=== PATIENT | female | born 1940 | race Caucasian/White ===

== ENCOUNTER → 2017-09-16 | Outpatient (CLI) | payer MEDICARE, OTHER ==
[~2017-09-16] MED LIST: ANAS1 PO; ASPI81CH PO; ATEN25 PO; ATOR10 PO; ATOR20 PO; CHOL10002 PO; CRANBERRY250 MG PO; CRANBERRY450 MG PO; CYCL10 PO; ELIQUIS2.5 MG PO; ERGO400 PO; ESTR1 PO; GABA300 PO; GUAI600T33 PO; HYDACE5 PO; LEVFLO500 PO; LEVSOD75 PO; LEVSOD88 PO; LISI5 PO; NITR100; NITR100 PO; NITR100CA PO; ONDA8 PO; OXYACE5T PO; OXYB5 PO; OXYC5 PO; Oxybutynin Chlo15 MG PO; PHENA200 PO; POTA10T PO; POTCHL10ER PO; POTCHL20ER PO; PRED1 PO; PRED10 PO; PRED5 PO; PROM25 PO; RXOXYACE PO; SPIR50 PO; TOLT4 PO; TRAM50 PO
== END | disposition home or self-care (01) ==
LOC: LAB 16:00
DX: N39.0 Urinary tract infection, site not specified (principal)
CPT/HCPCS: 87077; 87086; 87186

== ENCOUNTER → 2017-10-06 | Outpatient (CLI) | payer MEDICARE, OTHER ==
[2017-10-06 11:05] LABS: Source, Urine Clean Catch
[2017-10-06 13:50] LABS: Appearance, Urine Hazy (Clear); Bilirubin, Urine Neg (Neg); Blood, Urine 3+ (Neg); Color, Urine Yellow (P-Yellow); Glucose Qualitative, Urine Neg (Neg); Ketones, Urine Neg (Neg); Leukocyte Esterase, Urine 3+ (Neg); Nitrite, Urine Neg (Neg); Protein, Urine 1+ (Neg); Urobilinogen, Urine NORM (Normal)
[2017-10-06 13:56] LABS: Bacteria Many /hpf; Red Blood Cells, Urine 0-2 /hpf (0-2); Squamous Epithelial Cells Few /hpf (Few); White Blood Cells, Urine TNTC /hpf (0-5)
== END | disposition home or self-care (01) ==
LOC: LAB 11:04
PROVIDERS: Nurse Practitioner Family
DX: N39.0 Urinary tract infection, site not specified (principal)
CPT/HCPCS: 81001; 87077; 87086; 87186

== ENCOUNTER → 2017-10-15 | Outpatient (CLI) | payer MEDICARE, OTHER ==
[2017-10-15 18:35] LABS: Bilirubin, Urine Neg (Neg); Blood, Urine 2+ (Neg); Glucose Qualitative, Urine Neg (Neg); Ketones, Urine Neg (Neg); Leukocyte Esterase, Urine Neg (Neg); Nitrite, Urine Neg (Neg); Protein, Urine Neg (Neg); Urobilinogen, Urine NORM (Normal)
[2017-10-15 18:53] LABS: Appearance, Urine Clear (Clear); Color, Urine Pale Yellow (P-Yellow)
[2017-10-15 18:54] LABS: Bacteria Few /hpf; Red Blood Cells, Urine 0-2 /hpf (0-2); Squamous Epithelial Cells Few /hpf (Few); White Blood Cells, Urine 0-2 /hpf (0-5)
== END ==
LOC: LAB SHORT 18:26
PROVIDERS: Nurse Practitioner Family
DX: R31.21 Asymptomatic microscopic hematuria (principal)
CPT/HCPCS: 81001

== ENCOUNTER 2017-11-04 07:41 | Inpatient (IN) | payer MEDICARE, OTHER ==
[~2017-11-04] VITALS: Ht 167.6 cm; Wt 69.9 kg
[~2017-11-04 07:41] MED LIST changes: -ELIQUIS2.5 MG PO; -GUAI600T33 PO; -LEVFLO500 PO; -NITR100
[2017-11-04] MEDS ORDERED: ELIQUIS2.5 MG PO (08:06)
[2017-11-04] MEDS ORDERED: NITR100 (08:07)
[2017-11-04 08:33] LABS: BASOPHILS ABSOLUTE AUTO 0.04 K/mm3 (0.00-0.23); BASOPHILS PERCENT AUTO 1 % (0-2); EOSINOPHILS ABSOLUTE AUTO 0.14 K/mm3 (0.00-0.68); EOSINOPHILS PERCENT AUTO 2 % (0-6); Hematocrit 39.4 % (33.0-51.0); Hemoglobin 12.5 g/dL (11.5-16.0); IMMATURE GRAN ABSOLUTE AUTO 0.01 K/mm3 (0.00-0.10); IMMATURE GRAN PERCENT AUTO 0 % (0-1); LYMPHOCYTES ABSOLUTE AUTO 1.47 K/mm3 (0.84-5.20); LYMPHOCYTES PERCENT AUTO 19 % (21-46); MONOCYTES ABSOLUTE AUTO 0.74 K/mm3 (0.16-1.47); MONOCYTES PERCENT AUTO 9 % (4-13); Mean Corpuscular HGB 29.8 pg (26.0-34.0); Mean Corpuscular HGB Conc 31.7 g/dL (31.5-36.5); Mean Corpuscular Volume 94 fL (80-100); Mean Platelet Volume 10.6 fL (9.1-12.4); NEUTROPHILS ABSOLUTE AUTO 5.44 K/mm3 (1.96-9.15); NEUTROPHILS PERCENT AUTO 69 % (41-73); Platelet Count 170 K/mm3 (150-400); RDW Coefficient Variation 14.7 % (11.7-14.2); RDW Standard Deviation 51.5 fL (35.1-46.3); White Blood Cell Count 7.84 K/mm3 (4.00-11.30)
[2017-11-04 08:50] LABS: Alanine Aminotransfer (ALT/SGP 29 U/L (12-78); Albumin, Blood 2.7 g/dL (3.4-5.0); Albumin/Globulin Ratio 0.7 (0.8-1.8); Alk Phos 79 U/L (50-136); Anion Gap 11 mmol/L (6-16); Aspartate Aminotrans (AST/SGOT 16 U/L (12-37); Bilirubin, Total 1.7 mg/dL (0.1-1.0); Blood Urea Nitrogen 15 mg/dL (8-24); Bun/Creatinine Ratio 18.2 (12.0-20.0); CO2, Blood 25 mmol/L (21-32); Calcium, Blood 8.5 mg/dL (8.5-10.1); Chloride, Blood 103 mmol/L (98-108); Creatinine, Blood 0.82 mg/dL (0.40-1.00); Glomerular Filtration Rate >60 (60-); Glucose, Blood 99 mg/dL (70-99); Potassium, Blood 3.7 mmol/L (3.5-5.5); Sodium, Blood 139 mmol/L (136-145); Total Protein, Blood 6.7 g/dL (6.4-8.2)
[2017-11-04 09:41] LABS: Influenza A Negative (NEGATIVE); Influenza B Negative (NEGATIVE)
[2017-11-04 10:45] LABS: Source, Urine Voided
[2017-11-04 10:49] LABS: Bilirubin, Urine Neg (Neg); Blood, Urine 4+ (Neg); Glucose Qualitative, Urine Neg (Neg); Ketones, Urine 3+ (Neg); Leukocyte Esterase, Urine Neg (Neg); Nitrite, Urine Neg (Neg); Protein, Urine 2+ (Neg); Urobilinogen, Urine 1+ (Normal)
[2017-11-04 11:05] LABS: Appearance, Urine Clear (Clear); Color, Urine Yellow (P-Yellow)
[2017-11-04 11:06] LABS: White Blood Cells, Urine Not Seen /hpf (0-5)
[2017-11-04 11:08] LABS: Bacteria Few /hpf; Granular Casts 0-2 /lpf (0); Renal Epithelial Few /hpf (0-Rare); Squamous Epithelial Cells Few /hpf (Few); Transitional Epithelial Cells Few /hpf (0-Rare)
[2017-11-05 05:42] LABS: BASOPHILS ABSOLUTE AUTO 0.04 K/mm3 (0.00-0.23); BASOPHILS PERCENT AUTO 1 % (0-2); EOSINOPHILS ABSOLUTE AUTO 0.16 K/mm3 (0.00-0.68); EOSINOPHILS PERCENT AUTO 3 % (0-6); Hemoglobin 12.4 g/dL (11.5-16.0); IMMATURE GRAN ABSOLUTE AUTO 0.02 K/mm3 (0.00-0.10); IMMATURE GRAN PERCENT AUTO 0 % (0-1); LYMPHOCYTES ABSOLUTE AUTO 1.14 K/mm3 (0.84-5.20); LYMPHOCYTES PERCENT AUTO 19 % (21-46); MONOCYTES ABSOLUTE AUTO 0.64 K/mm3 (0.16-1.47); MONOCYTES PERCENT AUTO 10 % (4-13); Mean Corpuscular HGB 29.8 pg (26.0-34.0); Mean Corpuscular HGB Conc 31.8 g/dL (31.5-36.5); Mean Corpuscular Volume 94 fL (80-100); Mean Platelet Volume 10.4 fL (9.1-12.4); NEUTROPHILS ABSOLUTE AUTO 4.15 K/mm3 (1.96-9.15); NEUTROPHILS PERCENT AUTO 68 % (41-73); Platelet Count 160 K/mm3 (150-400); RDW Coefficient Variation 14.7 % (11.7-14.2); RDW Standard Deviation 50.6 fL (35.1-46.3); Red Blood Cell Count 4.16 M/mm3 (3.80-5.20); White Blood Cell Count 6.15 K/mm3 (4.00-11.30)
[2017-11-05 06:10] LABS: Alanine Aminotransfer (ALT/SGP 23 U/L (12-78); Albumin, Blood 2.5 g/dL (3.4-5.0); Albumin/Globulin Ratio 0.7 (0.8-1.8); Alk Phos 68 U/L (50-136); Anion Gap 10 mmol/L (6-16); Aspartate Aminotrans (AST/SGOT 11 U/L (12-37); Bilirubin, Total 0.9 mg/dL (0.1-1.0); Blood Urea Nitrogen 13 mg/dL (8-24); Bun/Creatinine Ratio 16.4 (12.0-20.0); CO2, Blood 22 mmol/L (21-32); Calcium, Blood 7.9 mg/dL (8.5-10.1); Chloride, Blood 107 mmol/L (98-108); Creatinine, Blood 0.79 mg/dL (0.40-1.00); Globulin, Blood 3.6 g/dL (2.2-4.0); Glomerular Filtration Rate >60 (60-); Glucose, Blood 128 mg/dL (70-99); Potassium, Blood 3.8 mmol/L (3.5-5.5); Sodium, Blood 139 mmol/L (136-145); Total Protein, Blood 6.1 g/dL (6.4-8.2)
[2017-11-06 05:31] LABS: BASOPHILS ABSOLUTE AUTO 0.02 K/mm3 (0.00-0.23); BASOPHILS PERCENT AUTO 0 % (0-2); EOSINOPHILS ABSOLUTE AUTO 0.08 K/mm3 (0.00-0.68); EOSINOPHILS PERCENT AUTO 1 % (0-6); Hematocrit 37.6 % (33.0-51.0); IMMATURE GRAN ABSOLUTE AUTO 0.03 K/mm3 (0.00-0.10); IMMATURE GRAN PERCENT AUTO 1 % (0-1); LYMPHOCYTES ABSOLUTE AUTO 1.16 K/mm3 (0.84-5.20); LYMPHOCYTES PERCENT AUTO 18 % (21-46); MONOCYTES ABSOLUTE AUTO 0.53 K/mm3 (0.16-1.47); MONOCYTES PERCENT AUTO 8 % (4-13); Mean Corpuscular HGB 29.9 pg (26.0-34.0); Mean Corpuscular HGB Conc 31.9 g/dL (31.5-36.5); Mean Corpuscular Volume 94 fL (80-100); Mean Platelet Volume 9.6 fL (9.1-12.4); NEUTROPHILS ABSOLUTE AUTO 4.59 K/mm3 (1.96-9.15); NEUTROPHILS PERCENT AUTO 72 % (41-73); Platelet Count 191 K/mm3 (150-400); RDW Coefficient Variation 14.7 % (11.7-14.2); RDW Standard Deviation 51.3 fL (35.1-46.3); Red Blood Cell Count 4.02 M/mm3 (3.80-5.20); White Blood Cell Count 6.41 K/mm3 (4.00-11.30)
[2017-11-06 05:50] LABS: Anion Gap 9 mmol/L (6-16); Blood Urea Nitrogen 13 mg/dL (8-24); Bun/Creatinine Ratio 14.5 (12.0-20.0); CO2, Blood 24 mmol/L (21-32); Calcium, Blood 7.9 mg/dL (8.5-10.1); Chloride, Blood 108 mmol/L (98-108); Creatinine, Blood 0.89 mg/dL (0.40-1.00); Glomerular Filtration Rate >60 (60-); Glucose, Blood 120 mg/dL (70-99); Potassium, Blood 3.9 mmol/L (3.5-5.5); Sodium, Blood 141 mmol/L (136-145)
[2017-11-07] MEDS ORDERED: GUAI600T33 PO (08:34)
[2017-11-07] MEDS ORDERED: ASPI81CH PO (11:56)
[2017-11-07] MEDS ORDERED: LEVSOD75 PO (11:56)
[2017-11-07] MEDS ORDERED: SPIR50 PO (11:57)
[2017-11-07] MEDS ORDERED: GABA300 PO (11:57)
[2017-11-07] MEDS ORDERED: OXYC5 PO (12:00)
[2017-11-07] MEDS ORDERED: LEVFLO500 PO (12:00)
== END 2017-11-07 12:58 | disposition home or self-care (01) | DRG 193 ==
LOC: ER 07:41 → MEDS 07:42 → ENPENDDIS 11-07 11:59 → MEDS 11-07 12:58
PROVIDERS: Emergency Medicine; Family Medicine
DX: J18.9 Pneumonia, unspecified organism (principal); G93.41 Metabolic encephalopathy; M35.3 Polymyalgia rheumatica; M19.90 Unspecified osteoarthritis, unspecified site; I10 Essential (primary) hypertension; M81.0 Age-related osteoporosis without current pathological fracture; I48.91 Unspecified atrial fibrillation; E03.9 Hypothyroidism, unspecified; E78.5 Hyperlipidemia, unspecified; Z85.3 Personal history of malignant neoplasm of breast; Z79.811 Long term (current) use of aromatase inhibitors; Z79.01 Long term (current) use of anticoagulants; Z79.82 Long term (current) use of aspirin; Z79.52 Long term (current) use of systemic steroids; Z79.899 Other long term (current) drug therapy; Z17.0 Estrogen receptor positive status [ER+]
CPT/HCPCS: 36415; 71046; 80048; 80053; 81001; 83690; 84484; 85025; 87804; 93005; 93010; 93971; 94640; 94760; 96361; 96365; 97110; 97116; 97161; 99285; G0378; G8978; G8979; G8980; J0696; J1956; J7030; P9612

== ENCOUNTER → 2018-11-24 | Outpatient (CLI) | payer MEDICARE ==
[~2018-11-24] MED LIST changes: +ELIQUIS2.5 MG PO; +GUAI600T33 PO; +LEVFLO500 PO; +NITR100
[2018-11-24 10:39] LABS: BASOPHILS ABSOLUTE AUTO 0.04 K/mm3 (0.00-0.23); BASOPHILS PERCENT AUTO 0 % (0-2); EOSINOPHILS PERCENT AUTO 1 % (0-6); Hematocrit 38.4 % (33.0-51.0); Hemoglobin 12.7 g/dL (11.5-16.0); IMMATURE GRAN ABSOLUTE AUTO 0.06 K/mm3 (0.00-0.10); IMMATURE GRAN PERCENT AUTO 1 % (0-1); LYMPHOCYTES ABSOLUTE AUTO 1.46 K/mm3 (0.84-5.20); LYMPHOCYTES PERCENT AUTO 14 % (21-46); MONOCYTES ABSOLUTE AUTO 0.58 K/mm3 (0.16-1.47); MONOCYTES PERCENT AUTO 6 % (4-13); Mean Corpuscular HGB 32.7 pg (26.0-34.0); Mean Corpuscular HGB Conc 33.1 g/dL (31.5-36.5); Mean Corpuscular Volume 99 fL (80-100); Mean Platelet Volume 10.6 fL (9.1-12.4); NEUTROPHILS ABSOLUTE AUTO 8.05 K/mm3 (1.96-9.15); NEUTROPHILS PERCENT AUTO 78 % (41-73); Platelet Count 147 K/mm3 (150-400); RDW Coefficient Variation 14.1 % (11.7-14.2); RDW Standard Deviation 51.7 fL (35.1-46.3); Red Blood Cell Count 3.88 M/mm3 (3.80-5.20); White Blood Cell Count 10.29 K/mm3 (4.00-11.30)
[2018-11-24 10:54] LABS: Albumin, Blood 3.8 g/dL (3.4-5.0); Albumin/Globulin Ratio 1.2 (0.8-1.8); Bun/Creatinine Ratio 18.6 (12.0-20.0); Calcium, Blood 9.5 mg/dL (8.5-10.1); Creatinine, Blood 1.56 mg/dL (0.40-1.00); Globulin, Blood 3.1 g/dL (2.2-4.0); Potassium, Blood 3.9 mmol/L (3.5-5.5); Total Protein, Blood 6.9 g/dL (6.4-8.2); Troponin I 0.054 ng/mL (0.000-0.040)
== END | disposition home or self-care (01) ==
LOC: LAB EV 10:32 → LAB SHORT 10:32
PROVIDERS: Physician Assistant
DX: R06.02 Shortness of breath (principal)
CPT/HCPCS: 80053; 83880; 84484; 85025

== ENCOUNTER 2019-05-04 13:02 | Inpatient (IN) | payer MEDICARE ==
[~2019-05-04] VITALS: Ht 165.1 cm; Wt 69.1 kg
[2019-05-04 13:32] LABS: BASOPHILS ABSOLUTE AUTO 0.03 K/mm3 (0.00-0.23); BASOPHILS PERCENT AUTO 0 % (0-2); EOSINOPHILS PERCENT AUTO 0 % (0-6); Hematocrit 41.2 % (33.0-51.0); Hemoglobin 13.6 g/dL (11.5-16.0); IMMATURE GRAN ABSOLUTE AUTO 0.13 K/mm3 (0.00-0.10); IMMATURE GRAN PERCENT AUTO 1 % (0-1); LYMPHOCYTES ABSOLUTE AUTO 2.04 K/mm3 (0.84-5.20); LYMPHOCYTES PERCENT AUTO 13 % (21-46); MONOCYTES ABSOLUTE AUTO 0.94 K/mm3 (0.16-1.47); MONOCYTES PERCENT AUTO 6 % (4-13); Mean Corpuscular HGB 32.1 pg (26.0-34.0); Mean Corpuscular Volume 97 fL (80-100); NEUTROPHILS ABSOLUTE AUTO 12.29 K/mm3 (1.96-9.15); NEUTROPHILS PERCENT AUTO 80 % (41-73); Platelet Count 201 K/mm3 (150-400); RDW Coefficient Variation 13.2 % (11.7-14.2); RDW Standard Deviation 47.3 fL (35.1-46.3); Red Blood Cell Count 4.24 M/mm3 (3.80-5.20); White Blood Cell Count 15.43 K/mm3 (4.00-11.30)
[2019-05-04] MEDS ORDERED: ANAS1 PO (13:34)
[2019-05-04] MEDS ORDERED: Lipitor20 MG PO (13:34)
[2019-05-04] MEDS ORDERED: FURO40 PO (13:35)
[2019-05-04] MEDS ORDERED: GABA300 PO (13:35)
[2019-05-04] MEDS ORDERED: LEVSOD50 PO (13:35)
[2019-05-04] MEDS ORDERED: POTA10T PO (13:35)
[2019-05-04] MEDS ORDERED: ELIQUIS2.5 MG PO (13:35)
[2019-05-04] MEDS ORDERED: Prinivil10 MG PO (13:36)
[2019-05-04] MEDS ORDERED: METO50ER PO (13:36)
[2019-05-04] MEDS ORDERED: Prednisone2.5 MG PO (13:37)
[2019-05-04] MEDS ORDERED: OXYC5 PO (13:37)
[2019-05-04] MEDS ORDERED: Oxybutynin Chlo15 MG PO (13:37)
[2019-05-04 13:51] LABS: Alanine Aminotransfer (ALT/SGP 25 U/L (12-78); Albumin, Blood 3.1 g/dL (3.4-5.0); Albumin/Globulin Ratio 0.8 (0.8-1.8); Alk Phos 80 U/L (50-136); Anion Gap 7 mmol/L (6-16); Aspartate Aminotrans (AST/SGOT 32 U/L (12-37); Bilirubin, Total 1.2 mg/dL (0.1-1.0); Blood Urea Nitrogen 17 mg/dL (8-24); Bun/Creatinine Ratio 20.5 (12.0-20.0); CO2, Blood 31 mmol/L (21-32); Calcium, Blood 9.2 mg/dL (8.5-10.1); Chloride, Blood 97 mmol/L (98-108); Creatinine, Blood 0.83 mg/dL (0.40-1.00); Glomerular Filtration Rate >60 (60-); Glucose, Blood 156 mg/dL (70-99); Potassium, Blood 4.2 mmol/L (3.5-5.5); Sodium, Blood 135 mmol/L (136-145); Total Protein, Blood 7.1 g/dL (6.4-8.2); Troponin I 0.027 ng/mL (0.000-0.040)
[2019-05-04] MEDS ORDERED: LISI20 PO (15:26)
[2019-05-04] MEDS ORDERED: Nitrofurantoin50 MG PO (15:28)
[2019-05-04] MEDS ORDERED: Lasix40 MG PO (15:39)
--- NOTE | 2019-05-04 18:58 | NUR ---
ER ADMIT- PT ARRIVED TO ROOM 312 VIA RNEY FROM ED AT 1820, PT A/OX4. PT A 3 PERSON SLIDE TO BED. PT ORIENTED TO ROOM AND CALL SYSTEM. PT 02 4L N/C, HARSH NPC. PT SITTING UP EATING DINNER AT THIS TIME. REPORT GIVEN TO ALESSIO MARTINEZ.
[2019-05-05 05:13] LABS: BASOPHILS ABSOLUTE AUTO 0.02 K/mm3 (0.00-0.23); BASOPHILS PERCENT AUTO 0 % (0-2); EOSINOPHILS PERCENT AUTO 0 % (0-6); Hematocrit 36.9 % (33.0-51.0); Hemoglobin 12.3 g/dL (11.5-16.0); IMMATURE GRAN ABSOLUTE AUTO 0.11 K/mm3 (0.00-0.10); IMMATURE GRAN PERCENT AUTO 1 % (0-1); LYMPHOCYTES ABSOLUTE AUTO 0.92 K/mm3 (0.84-5.20); LYMPHOCYTES PERCENT AUTO 7 % (21-46); MONOCYTES ABSOLUTE AUTO 0.78 K/mm3 (0.16-1.47); MONOCYTES PERCENT AUTO 6 % (4-13); Mean Corpuscular HGB 31.4 pg (26.0-34.0); Mean Corpuscular HGB Conc 33.3 g/dL (31.5-36.5); Mean Platelet Volume 9.8 fL (9.1-12.4); NEUTROPHILS ABSOLUTE AUTO 11.92 K/mm3 (1.96-9.15); NEUTROPHILS PERCENT AUTO 87 % (41-73); Platelet Count 190 K/mm3 (150-400); RDW Coefficient Variation 13.3 % (11.7-14.2); RDW Standard Deviation 45.9 fL (35.1-46.3); Red Blood Cell Count 3.92 M/mm3 (3.80-5.20); White Blood Cell Count 13.75 K/mm3 (4.00-11.30)
[2019-05-05 05:14] LABS: Mean Corpuscular Volume 94 fL (80-100)
[2019-05-05 05:35] LABS: Anion Gap 7 mmol/L (6-16); Blood Urea Nitrogen 20 mg/dL (8-24); Bun/Creatinine Ratio 23.2 (12.0-20.0); CO2, Blood 29 mmol/L (21-32); Calcium, Blood 9.2 mg/dL (8.5-10.1); Chloride, Blood 97 mmol/L (98-108); Creatinine, Blood 0.86 mg/dL (0.40-1.00); Glomerular Filtration Rate >60 (60-); Glucose, Blood 193 mg/dL (70-99); Potassium, Blood 3.8 mmol/L (3.5-5.5); Sodium, Blood 133 mmol/L (136-145)
--- NOTE | 2019-05-05 08:38 | NUR ---
IN TO EVALUATE PATIENT. ADVISED HEART SOUNDED IRREG.
--- NOTE | 2019-05-05 15:40 | NUR ---
ALERT. ORIENTED. PLEASANT. ON OXYGEN. HARSH, MOIST SOUNDING COUGH. ADVISED TO USE FLUTTER VALVE WHENEVER CHECKING ON PATIENT. MEDICATED FOR CHRONIC PAIN WITH GOOD RESULTS. WCTM
--- NOTE | 2019-05-06 03:39 | NUR ---
SHIFT SUMMARY PT ALERT, ORIENTED AND INDEPENDENT IN THE ROOM. PT CONTINUES TO COMPLAIN OF INTERMITTENT SOB AND NONPRODUCTIVE COUGH. PT'S PAIN ADEQUATELY MANAGED. NO OTHER COMPLAINTS BY PT AT THIS TIME. VSS. WILL CONTINUE TO MONITOR.
[2019-05-06 04:50] LABS: BASOPHILS ABSOLUTE AUTO 0.01 K/mm3 (0.00-0.23); BASOPHILS PERCENT AUTO 0 % (0-2); EOSINOPHILS PERCENT AUTO 0 % (0-6); Hematocrit 40.3 % (33.0-51.0); Hemoglobin 13.1 g/dL (11.5-16.0); IMMATURE GRAN ABSOLUTE AUTO 0.07 K/mm3 (0.00-0.10); IMMATURE GRAN PERCENT AUTO 1 % (0-1); LYMPHOCYTES ABSOLUTE AUTO 1.26 K/mm3 (0.84-5.20); LYMPHOCYTES PERCENT AUTO 10 % (21-46); MONOCYTES PERCENT AUTO 4 % (4-13); Mean Corpuscular HGB 31.3 pg (26.0-34.0); Mean Corpuscular HGB Conc 32.5 g/dL (31.5-36.5); Mean Corpuscular Volume 96 fL (80-100); Mean Platelet Volume 9.8 fL (9.1-12.4); NEUTROPHILS ABSOLUTE AUTO 11.44 K/mm3 (1.96-9.15); NEUTROPHILS PERCENT AUTO 86 % (41-73); Platelet Count 213 K/mm3 (150-400); RDW Coefficient Variation 13.2 % (11.7-14.2); RDW Standard Deviation 47.4 fL (35.1-46.3); Red Blood Cell Count 4.18 M/mm3 (3.80-5.20); White Blood Cell Count 13.28 K/mm3 (4.00-11.30)
[2019-05-06 05:10] LABS: Albumin, Blood 2.4 g/dL (3.4-5.0); Anion Gap 8 mmol/L (6-16); Blood Urea Nitrogen 19 mg/dL (8-24); Bun/Creatinine Ratio 21.8 (12.0-20.0); CO2, Blood 29 mmol/L (21-32); Calcium, Blood 8.9 mg/dL (8.5-10.1); Chloride, Blood 97 mmol/L (98-108); Creatinine, Blood 0.87 mg/dL (0.40-1.00); Glomerular Filtration Rate >60 (60-); Glucose, Blood 158 mg/dL (70-99); Phosphorus, Blood 1.9 mg/dL (2.5-4.9); Potassium, Blood 3.8 mmol/L (3.5-5.5); Sodium, Blood 134 mmol/L (136-145)
--- NOTE | 2019-05-06 09:58 | NUR ---
TALKED TO PATIENT TAKES NEURONTIN QID AND WAS CHANGED YESTERDAY TO 500 MG IN AM. PER MD CAN CHANGE BACK TO NORMALLY WHAT SHE TAKES
--- NOTE | 2019-05-06 18:45 | NUR ---
ALERT.ORIENTED. LUNGS SOUNDING BETTER AT END OF SHIFT. STILL ON OXYGEN. USES FLUTTER VALVE OFTEN. REPORT TO NIGHT RN
--- NOTE | 2019-05-07 04:33 | NUR ---
SHIFT SUMMARY PT REPORTS LESS SOB THIS SHIFT. TESSALON PEARLS ORDERED BY HOSPITALIST FOR COUGH. PT HAS NEW 20G IV IN RIGHT FORARM PLACED BY LORIE ADAM. NO OTHER COMPLAINTS FROM PT AT THIS TIME. PT WAS HYPERTENSIVE WHEN MORNING VITALS WERE TAKEN, DUE TO COUGH. WHEN BP WAS RECHECKED, PT WAS NORMOTENSIVE. WILL CONTINUE TO MONITOR.
[2019-05-07 05:10] LABS: BASOPHILS ABSOLUTE AUTO 0.01 K/mm3 (0.00-0.23); BASOPHILS PERCENT AUTO 0 % (0-2); EOSINOPHILS PERCENT AUTO 0 % (0-6); Hematocrit 38.2 % (33.0-51.0); Hemoglobin 12.7 g/dL (11.5-16.0); IMMATURE GRAN ABSOLUTE AUTO 0.08 K/mm3 (0.00-0.10); IMMATURE GRAN PERCENT AUTO 1 % (0-1); LYMPHOCYTES ABSOLUTE AUTO 0.57 K/mm3 (0.84-5.20); LYMPHOCYTES PERCENT AUTO 5 % (21-46); MONOCYTES PERCENT AUTO 2 % (4-13); Mean Corpuscular HGB 31.4 pg (26.0-34.0); Mean Corpuscular HGB Conc 33.2 g/dL (31.5-36.5); Mean Corpuscular Volume 94 fL (80-100); Mean Platelet Volume 10.2 fL (9.1-12.4); NEUTROPHILS PERCENT AUTO 92 % (41-73); Platelet Count 212 K/mm3 (150-400); RDW Coefficient Variation 13.2 % (11.7-14.2); RDW Standard Deviation 45.8 fL (35.1-46.3); Red Blood Cell Count 4.05 M/mm3 (3.80-5.20); White Blood Cell Count 12.36 K/mm3 (4.00-11.30)
[2019-05-07 05:35] LABS: Albumin, Blood 2.3 g/dL (3.4-5.0); Anion Gap 6 mmol/L (6-16); Blood Urea Nitrogen 25 mg/dL (8-24); Bun/Creatinine Ratio 29.5 (12.0-20.0); CO2, Blood 30 mmol/L (21-32); Calcium, Blood 8.9 mg/dL (8.5-10.1); Chloride, Blood 94 mmol/L (98-108); Creatinine, Blood 0.85 mg/dL (0.40-1.00); Glomerular Filtration Rate >60 (60-); Glucose, Blood 223 mg/dL (70-99); Phosphorus, Blood 3.3 mg/dL (2.5-4.9); Potassium, Blood 4.1 mmol/L (3.5-5.5); Sodium, Blood 130 mmol/L (136-145)
[2019-05-07 13:01] LABS: Adenovirus Not Detected (NOT DETECT); Bordetella pertussis Not Detected (NOT DETECT); Chlamydophila pneumoniae Not Detected (NOT DETECT); Coronavirus 229E Not Detected (NOT DETECT); Coronavirus HKU1 Not Detected (NOT DETECT); Coronavirus NL63 Not Detected (NOT DETECT); Coronavirus OC43 Not Detected (NOT DETECT); Human Metapneumovirus Not Detected (NOT DETECT); Human Rhinovirus/Enterovirus Not Detected (NOT DETECT); Influenza A Not Detected (NOT DETECT); Influenza A/2009-H1 Not Detected (NOT DETECT); Influenza A/H1 Not Detected (NOT DETECT); Influenza A/H3 Not Detected (NOT DETECT); Influenza B Not Detected (NOT DETECT); Mycoplasma pneumoniae Not Detected (NOT DETECT); Parainfluenza Virus 1 Not Detected (NOT DETECT); Parainfluenza Virus 2 Not Detected (NOT DETECT); Parainfluenza Virus 3 Not Detected (NOT DETECT); Parainfluenza Virus 4 Not Detected (NOT DETECT); Respiratory Syncytial Virus Not Detected (NOT DETECT)
--- NOTE | 2019-05-07 17:39 | NUR ---
SUMMARY PT IS A/O X4, PLEASANT AFFECT. SBA w FWW TO BR, SHE WAS UP w PHYTHER TODAY. SHE STATE CONTINUING COUGH THAT IS BECOMING PRODUCTIVE OF GREENISH SPUTUM. SHE HAS BEEN USING FLUTTER VALVE INTERMITTANTLY. RT PROVIDING NEB TX'S, O2 CONTINUES, TITRATED TO 2L, BIOX 93% HAVE GIVEN MULT COUGH MEDS FOR RELIEF/CONTROL. VSS, AFEBRILE. THIS AFTERNOON IV SITE L AC 20GA INFILTRATED, APPRO 2-3 IN DIAMETER, PHARMACY NOTIFIED, STATE NOT VESICANT, ELEVATE/WARM COMPRESS. NUISANCE WILDLIFE SPECIALIST NOTIFIED.
--- NOTE | 2019-05-08 03:29 | NUR ---
SHIFT SUMMARY PT HASN'T COMPLAINED OF SOB THIS SHIFT. PAIN MEDICATION AND COUGH MEDICATION WERE GIVEN ORDERED. PT CONTINUES TO BE SOMETIMES INCONTINENT WHEN SHE COUGHS. PT IS ALERT, ORIENTED AND ONE ASSIST. WILL CONTINUE TO MONITOR.
[2019-05-08 04:36] LABS: BASOPHILS ABSOLUTE AUTO 0.02 K/mm3 (0.00-0.23); BASOPHILS PERCENT AUTO 0 % (0-2); EOSINOPHILS PERCENT AUTO 0 % (0-6); Hematocrit 37.6 % (33.0-51.0); Hemoglobin 12.4 g/dL (11.5-16.0); IMMATURE GRAN ABSOLUTE AUTO 0.17 K/mm3 (0.00-0.10); IMMATURE GRAN PERCENT AUTO 1 % (0-1); LYMPHOCYTES ABSOLUTE AUTO 0.95 K/mm3 (0.84-5.20); LYMPHOCYTES PERCENT AUTO 7 % (21-46); MONOCYTES ABSOLUTE AUTO 0.54 K/mm3 (0.16-1.47); MONOCYTES PERCENT AUTO 4 % (4-13); Mean Corpuscular HGB 31.5 pg (26.0-34.0); Mean Corpuscular Volume 95 fL (80-100); Mean Platelet Volume 9.9 fL (9.1-12.4); NEUTROPHILS ABSOLUTE AUTO 13.03 K/mm3 (1.96-9.15); NEUTROPHILS PERCENT AUTO 89 % (41-73); Platelet Count 242 K/mm3 (150-400); RDW Standard Deviation 46.4 fL (35.1-46.3); Red Blood Cell Count 3.94 M/mm3 (3.80-5.20); White Blood Cell Count 14.71 K/mm3 (4.00-11.30)
[2019-05-08 04:54] LABS: Albumin, Blood 2.3 g/dL (3.4-5.0); Anion Gap 8 mmol/L (6-16); Blood Urea Nitrogen 33 mg/dL (8-24); Bun/Creatinine Ratio 36.8 (12.0-20.0); CO2, Blood 29 mmol/L (21-32); Calcium, Blood 8.5 mg/dL (8.5-10.1); Chloride, Blood 92 mmol/L (98-108); Glomerular Filtration Rate >60 (60-); Glucose, Blood 255 mg/dL (70-99); Phosphorus, Blood 3.5 mg/dL (2.5-4.9); Potassium, Blood 4.6 mmol/L (3.5-5.5); Sodium, Blood 129 mmol/L (136-145)
--- NOTE | 2019-05-08 14:49 | NUR ---
SUMMARY PT IS A/O X4, PLEASANT/COOPERATIVE. UP w SBA TO SHOWER THIS AM & PARTICIPATED w NURA THIS AFTERNOON, AMB IN [place] w FWW. SHE STATE CONTINUING SOB w EXERTION. O2 CONTINUES FOR NOW @ 2L, BIOX 93%, LUNGS WHEEZY, COARSE w HARSH WET COUGH. RT PROVIDING NEB TX'S. PRN GUIF/CODEINE & TESSALON FOR COUGH CONTROL. PRN OXYCODONE GIVEN FOR RELIEF OF RIB/ABD PAIN R/T COUGH. DR MUSE CHANGE FROM IV ANTIBX & STEROIDS TO ORAL TODAY. VSS, AFEBRILE.
--- NOTE | 2019-05-09 03:38 | NUR ---
SHIFT SUMMARY- NO ACUTE CHANGES OVERNIGHT. PT. SLEPT ON/OFF DURING THE NIGHT. SBA TO BATHROOM. OXYCODONE PRN GIVEN FOR CHRONIC BACK PAIN. PT. WITH HACKING COUGH, COUGH MED ALSO GIVEN PER EMAR, PT. TOLERATED WELL. DENIED ANY OTHER NEEDS T/O THE NIGHT. NO APPARENT DISTRESS NOTED. CALL LIGHT WITHIN REACH AND SIDE RAILS UP X2. WILL CONT TO MONITOR.
[2019-05-09 04:46] LABS: BASOPHILS ABSOLUTE AUTO 0.01 K/mm3 (0.00-0.23); BASOPHILS PERCENT AUTO 0 % (0-2); EOSINOPHILS ABSOLUTE AUTO 0.01 K/mm3 (0.00-0.68); EOSINOPHILS PERCENT AUTO 0 % (0-6); Hematocrit 40.1 % (33.0-51.0); Hemoglobin 13.1 g/dL (11.5-16.0); IMMATURE GRAN ABSOLUTE AUTO 0.14 K/mm3 (0.00-0.10); IMMATURE GRAN PERCENT AUTO 1 % (0-1); LYMPHOCYTES ABSOLUTE AUTO 1.04 K/mm3 (0.84-5.20); LYMPHOCYTES PERCENT AUTO 10 % (21-46); MONOCYTES ABSOLUTE AUTO 0.62 K/mm3 (0.16-1.47); MONOCYTES PERCENT AUTO 6 % (4-13); Mean Corpuscular HGB 31.2 pg (26.0-34.0); Mean Corpuscular HGB Conc 32.7 g/dL (31.5-36.5); Mean Corpuscular Volume 96 fL (80-100); Mean Platelet Volume 9.8 fL (9.1-12.4); NEUTROPHILS ABSOLUTE AUTO 8.92 K/mm3 (1.96-9.15); NEUTROPHILS PERCENT AUTO 83 % (41-73); Platelet Count 273 K/mm3 (150-400); RDW Standard Deviation 46.4 fL (35.1-46.3); White Blood Cell Count 10.74 K/mm3 (4.00-11.30)
[2019-05-09 05:24] LABS: Albumin, Blood 2.4 g/dL (3.4-5.0); Anion Gap 9 mmol/L (6-16); Blood Urea Nitrogen 30 mg/dL (8-24); Bun/Creatinine Ratio 33.4 (12.0-20.0); CO2, Blood 30 mmol/L (21-32); Calcium, Blood 8.9 mg/dL (8.5-10.1); Chloride, Blood 95 mmol/L (98-108); Glomerular Filtration Rate >60 (60-); Glucose, Blood 184 mg/dL (70-99); Magnesium, Blood 2.2 mg/dL (1.6-2.4); Phosphorus, Blood 3.4 mg/dL (2.5-4.9); Potassium, Blood 4.4 mmol/L (3.5-5.5); Sodium, Blood 134 mmol/L (136-145)
--- NOTE | 2019-05-09 10:00 | NUR ---
ELEVATED BLOOD PRESSURE THIS MORNING'S BP WAS ELEVATED TO 176/101. THE PT WAS DUE FOR HER MORNING BLOOD PRESSURE MEDS, I ADMINISTERED THOSE ORDERED IN THE EMAR. RE-CHECKING THE PT'S BLOOD PRESSURE LATER AFTER THE MEDICATIONS HAD TIME TO TAKE EFFECT I FOUND HER BLOOD PRESSURE HAD DOWNTRENDED TO 168/81 (NEARER TO HER BASELINE).
--- NOTE | 2019-05-09 10:16 | NUR ---
PT STATUS PT STATES SHE IS CONSTIPATED. I HAVE BEGUN WITH KAT TODAY. SHE STATES SHE PREFERS TO TAKE THE STOOL SOFTENERS IN THE EVENING.
--- NOTE | 2019-05-09 12:37 | NUR ---
DECREASING O2 TRIAL HAS ORDERED WE ATTEMPT TO DECREASE O2 NEED TODAY. I'VE STARTED A DESAT TRIAL. PT O2 SAT IS 93% ON 2 LPM. 1240 HRS - DECREASED O2 TO 1 1/2 LPM
--- NOTE | 2019-05-09 13:24 | NUR ---
O2 DESAT TRIAL UPDATE #1 1324 HRS - O2 SATURATION 94% ON 1 1/2 LPM. LOWERING O2 ADMINISTRATION VIA NC TO 1 LPM. WILL CONTINUE TO MONITOR.
--- NOTE | 2019-05-09 14:25 | NUR ---
DESAT TRIAL UPDATE #2 O2 SATURATION @ 93% ON 1 LPM O2 ADMINISTRATION, 1409 HRS. REMOVING NC - GOING TO ROOM AIR. WILL CONTINUE TO MONITOR
--- NOTE | 2019-05-09 15:56 | NUR ---
O2 DESAT TRIAL - FAILURE PT DESATURATED TO 85% ON ROOM AIR. BACK ON 2 LPM VIA NC. WILL TRY AGAIN TOMORROW.
--- NOTE | 2019-05-09 16:34 | NUR ---
SHIFT SUMMARY WE DID TRY TO WEAN THE PT OFF OF OXYGEN TODAY, UNSUCCESSFULLY. PT DESATURATED TO 85%. SHE DID COUGH UP A LARGE AMOUNT OF MUCOUS TOWARDS END OF SHIFT. WE WILL TRY TO WEAN HER OFF OF O2 AGAIN TOMORROW. I'VE BEEN GIVING HER THE PRN GUAFFENESIN SYRUP, DELSYM SYRUP, AND THE TESSALON PEARLS ACCORDING TO THE EMAR. SHE STATES THIS HAS HELPED HER TODAY. SHE HAS BEEN AMBULATING TO THE BATHROOM WITH A FWW. WHILE HER BLOOD PRESSURE WAS ELEVATED THIS MORNING, I DID ADMINISTER MORNING BLOOD PRESSURE MEDICATIONS AND THE PT'S BLOOD PRESSURE RETURNED TO HER BASELINE.
--- NOTE | 2019-05-09 16:59 | NUR ---
PT STATUS THE DRYING EFFECTS OF THE O2 ADMIN IN THE NARES HAS CAUSED SOME BLEEDING. I'VE CALLED RT TO COME SHOW ME HOW TO HUMIDIFY THE OXYGEN.
--- NOTE | 2019-05-10 03:43 | NUR ---
SHIFT SUMMARY- PT. SLEPT ON/OFF T/O SHIFT. CONTINUES TO HAVE HACKING CONGESTED COUGH. COUGH MEDS GIVEN PRN PER EMAR, PT. TOLERATED WELL. REMAINS ON 2L HUMIDIFIED NC. PT. WAS ABLE TO COUGH UP X2 MODERATE AMOUNT OF SPUTUM. STATED FELT MUCH BETTER RELIEF. SBA TO BATHROOM WITH WALKER. DENIES ANY NEEDS AT THIS TIME. CALL LIGHT WITHN REACH AND SIDE RAILS UP X2. WILL CONT TO MONITOR.
--- NOTE | 2019-05-10 17:19 | NUR ---
SHIFT SUMMARY PT STATES SHE THINKS SHE MAY BE GETTING BETTER. SHE HAS BEEN ABLE TO COUGH UP MUCOUS. I HAVE SENT A SPUTUM SAMPLE FOR TESTING AT THE DR'S REQUEST. RT HAS BEEN WORKING WITH THE PT TO TRY TO DECREASE THE PT'S O2 NEEDS. RT PLANS TO PERFORM A HOME O2 EVALUATION TOMORROW. THE PT STATES SHE FEELS SHE IS WHEEZING LESS. ALL THERAPIES REPORT TO ME THAT THEY FEEL THE PT IS VERY WEAK. I HAVE KEPT UP WITH THE PRN COUGH MEDICATIONS IN AN ATTEMPT TO HELP THE PT IMPROVE. WE ARE GETTING HER UP IN THE CHAIR FOR ALL MEALS, BUT SHE NEEDS CONVINCING. SHE DID REQUEST PAIN MEDICATION FOR HER CHRONIC BACK PAIN TODAY.
--- NOTE | 2019-05-11 04:30 | NUR ---
SHIFT SUMMARY PATIENT HAD NO ACUTE CHANGES OBSERVED THIS SHIFT. AXOX 3 AND ONE ASSIST TO BR. SOB W/EXERTION. ON 2L O2 NC. RT IN FOR BREATHING TX. PRN COUGH MEDICATION DELSYN 30 MG AND GUAIFENESIN GIVEN PER EMAR. PATIENT REPORTS BREATHING SLOWLY IMPROVING. DENIES PAIN AND N/V. PIV REMAINS INTACT. AFEBRILE. CALL LIGHT IN REACH. BED IN LOWEST POSITION. WILL CONTINUE TO MONITOE UNTIL DAY SHIFT NURSE ASSUMES CARE.
--- NOTE | 2019-05-11 13:58 | NUR ---
DISCHARGE PT STATE CONTINUING COUGH HOWEVER STATE FEELING BETTER TODAY. DR ESTRELLA ORDER HOME O2 EVAL IN PREP FOR D/C HOME TODAY, RT REPORT PT QUALIFIES FOR HOME O2. DR NOTIFIED. IN TO SEE PT, SHE STATE FEELS READY FOR D/C HOME, DR PROVIDE ORDERS. [employer] PROGRAM MANAGER RN IN TO SEE PT/, ARRANGING HOME HEALTH & OXYGEN DELIVERY. IV D/C INTACT. CROZE MACHINE OPERATOR ASSIST PT TO DRESS/GATHER BELONGINGS.
[2019-05-11] MEDS ORDERED: BENZ100A PO (14:32)
[2019-05-11] MEDS ORDERED: PRED20 (14:32)
[2019-05-11] MEDS ORDERED: ALBU3IS INH (14:33)
[2019-05-11] MEDS ORDERED: DOCU100 PO (14:33)
[2019-05-11] MEDS ORDERED: GUAI600T33 PO (14:33)
[2019-05-11] MEDS ORDERED: LEVOFLOXACIN750 MG PO (14:34)
--- NOTE | 2019-05-11 16:02 | NUR ---
D/C INSTRUCT REVIEWED w PT/. NEW SCRIPTS FAXED TO [facility]. PT IS PLEASANT/APPRECIATIVE. ESCORTED VIA WC TO PARKING AREA w PORTABLE O2 @ 2L, ASSISTED INTO AUTO.
== END 2019-05-11 15:59 | disposition home health service (06) | DRG 193 ==
LOC: ER 13:02 → MEDS 13:03 → ENPENDDIS 05-11 13:39 → MEDS 05-11 15:59
PROVIDERS: Emergency Medicine; Internal Medicine Gastroenterology; ADMIT Family Medicine
DX: J18.1 Lobar pneumonia, unspecified organism (principal); J96.21 Acute and chronic respiratory failure with hypoxia; J44.1 Chronic obstructive pulmonary disease with (acute) exacerbation; J44.0 Chronic obstructive pulmonary disease with (acute) lower respiratory infection; E87.1 Hypo-osmolality and hyponatremia; M35.3 Polymyalgia rheumatica; I48.0 Paroxysmal atrial fibrillation; E78.00 Pure hypercholesterolemia, unspecified; E03.9 Hypothyroidism, unspecified; I11.9 Hypertensive heart disease without heart failure; M81.0 Age-related osteoporosis without current pathological fracture; M19.90 Unspecified osteoarthritis, unspecified site; Z85.3 Personal history of malignant neoplasm of breast; Z79.811 Long term (current) use of aromatase inhibitors; Z79.01 Long term (current) use of anticoagulants; Z79.52 Long term (current) use of systemic steroids; Z79.899 Other long term (current) drug therapy; Z87.891 Personal history of nicotine dependence
CPT/HCPCS: 0099U; 36415; 71046; 80048; 80053; 80069; 83605; 83735; 83880; 84145; 84484; 85025; 87040; 87070; 87205; 93005; 93010; 94640; 94644; 94667; 94668; 94760; 94761; 96365; 96367; 97116; 97161; 97530; 99285-25; J0696; J1956; J2920; J2930; J7050; J7512

== ENCOUNTER → 2019-06-22 | Outpatient (CLI) | payer MEDICARE ==
[~2019-06-22] MED LIST changes: +ALBU3IS INH; +BENZ100A PO; +DOCU100 PO; +FURO40 PO; +LEVOFLOXACIN750 MG PO; +LEVSOD50 PO; +LISI20 PO; +Lasix40 MG PO; +Lipitor20 MG PO; +METO50ER PO; +Nitrofurantoin50 MG PO; +PRED20; +Prednisone2.5 MG PO; +Prinivil10 MG PO
[2019-06-22 10:25] LABS: Bun/Creatinine Ratio 17.8 (12.0-20.0); Calcium, Blood 8.9 mg/dL (8.5-10.1); Creatinine, Blood 1.46 mg/dL (0.40-1.00); Potassium, Blood 3.2 mmol/L (3.5-5.5)
== END | disposition home or self-care (01) ==
LOC: LAB SHORT 10:14 → LAB EV 10:14
PROVIDERS: Family Medicine
DX: J18.1 Lobar pneumonia, unspecified organism (principal)
CPT/HCPCS: 80048; 83880

== ENCOUNTER → 2019-06-26 | Outpatient (CLI) | payer MEDICARE ==
[2019-06-26 14:41] LABS: BASOPHILS ABSOLUTE AUTO 0.03 K/mm3 (0.00-0.23); BASOPHILS PERCENT AUTO 0 % (0-2); EOSINOPHILS ABSOLUTE AUTO 0.14 K/mm3 (0.00-0.68); EOSINOPHILS PERCENT AUTO 2 % (0-6); Hematocrit 44.3 % (33.0-51.0); Hemoglobin 14.6 g/dL (11.5-16.0); IMMATURE GRAN ABSOLUTE AUTO 0.21 K/mm3 (0.00-0.10); IMMATURE GRAN PERCENT AUTO 2 % (0-1); LYMPHOCYTES ABSOLUTE AUTO 2.14 K/mm3 (0.84-5.20); LYMPHOCYTES PERCENT AUTO 24 % (21-46); MONOCYTES PERCENT AUTO 7 % (4-13); Mean Corpuscular HGB 31.6 pg (26.0-34.0); Mean Corpuscular Volume 96 fL (80-100); NEUTROPHILS ABSOLUTE AUTO 5.95 K/mm3 (1.96-9.15); NEUTROPHILS PERCENT AUTO 66 % (41-73); Platelet Count 212 K/mm3 (150-400); RDW Coefficient Variation 15.3 % (11.7-14.2); RDW Standard Deviation 53.6 fL (35.1-46.3); Red Blood Cell Count 4.62 M/mm3 (3.80-5.20); White Blood Cell Count 9.07 K/mm3 (4.00-11.30)
[2019-06-26 14:50] LABS: Albumin/Globulin Ratio 0.9 (0.8-1.8); Bilirubin, Total 0.8 mg/dL (0.1-1.0); Bun/Creatinine Ratio 16.8 (12.0-20.0); Calcium, Blood 8.8 mg/dL (8.5-10.1); Creatinine, Blood 1.61 mg/dL (0.40-1.00); Globulin, Blood 3.5 g/dL (2.2-4.0); Potassium, Blood 3.2 mmol/L (3.5-5.5); Total Protein, Blood 6.5 g/dL (6.4-8.2)
[2019-06-26 15:27] LABS: Digoxin (Lanoxin) 0.43 ug/mL (0.80-2.00)
== END | disposition home or self-care (01) ==
LOC: LAB EV 14:32 → LAB SHORT 14:32
PROVIDERS: General Practice
DX: J18.9 Pneumonia, unspecified organism (principal); I50.9 Heart failure, unspecified
CPT/HCPCS: 80053; 80162; 83880; 85025

== ENCOUNTER → 2019-07-10 | Outpatient (CLI) | payer MEDICARE ==
[2019-07-10 11:01] LABS: BASOPHILS ABSOLUTE AUTO 0.03 K/mm3 (0.00-0.23); BASOPHILS PERCENT AUTO 0 % (0-2); EOSINOPHILS ABSOLUTE AUTO 0.07 K/mm3 (0.00-0.68); EOSINOPHILS PERCENT AUTO 1 % (0-6); Hematocrit 38.5 % (33.0-51.0); Hemoglobin 12.4 g/dL (11.5-16.0); IMMATURE GRAN ABSOLUTE AUTO 0.02 K/mm3 (0.00-0.10); IMMATURE GRAN PERCENT AUTO 0 % (0-1); LYMPHOCYTES ABSOLUTE AUTO 1.13 K/mm3 (0.84-5.20); LYMPHOCYTES PERCENT AUTO 17 % (21-46); MONOCYTES ABSOLUTE AUTO 0.52 K/mm3 (0.16-1.47); MONOCYTES PERCENT AUTO 8 % (4-13); Mean Corpuscular HGB 31.2 pg (26.0-34.0); Mean Corpuscular HGB Conc 32.2 g/dL (31.5-36.5); Mean Corpuscular Volume 97 fL (80-100); Mean Platelet Volume 9.9 fL (9.1-12.4); NEUTROPHILS ABSOLUTE AUTO 5.02 K/mm3 (1.96-9.15); NEUTROPHILS PERCENT AUTO 74 % (41-73); Platelet Count 213 K/mm3 (150-400); RDW Coefficient Variation 14.9 % (11.7-14.2); RDW Standard Deviation 53.3 fL (35.1-46.3); Red Blood Cell Count 3.98 M/mm3 (3.80-5.20); White Blood Cell Count 6.79 K/mm3 (4.00-11.30)
[2019-07-10 11:13] LABS: Albumin, Blood 3.3 g/dL (3.4-5.0); Albumin/Globulin Ratio 0.9 (0.8-1.8); Bilirubin, Total 1.2 mg/dL (0.1-1.0); Bun/Creatinine Ratio 12.3 (12.0-20.0); Calcium, Blood 9.1 mg/dL (8.5-10.1); Creatinine, Blood 1.06 mg/dL (0.40-1.00); Globulin, Blood 3.6 g/dL (2.2-4.0); Potassium, Blood 4.1 mmol/L (3.5-5.5); Total Protein, Blood 6.9 g/dL (6.4-8.2)
== END ==
LOC: LAB SHORT 10:55 → LAB EV 10:55
PROVIDERS: General Practice
DX: I50.9 Heart failure, unspecified (principal)
CPT/HCPCS: 80053; 83880; 85025

== ENCOUNTER → 2019-08-11 | Outpatient (CLI) | payer MEDICARE ==
[~2019-08-11] MED LIST changes: +AMOCLA875 PO; +Amiodarone HCl200 MG PO; +BUDE10.22 INH; +CARV6.25 PO; +CARVEDILOL3.125 MG PO; +DIGOX125 MC1 PO; +Duoneb 2.5-0.5 M3 ML INH; +FUROSEMIDE40 MG PO; +K-Dur 20 meq T20 MEQ PO; -LEVSOD50 PO; +METO25 PO; +ONDA4ODT PO; -PRED20; +SPIRONOLACTONE25 MG PO; +TORS10; +TORSE20 PO
== END | disposition home or self-care (01) ==
LOC: LAB SHORT 12:39 → LAB 12:39
DX: N39.0 Urinary tract infection, site not specified (principal)
CPT/HCPCS: 87086

== ENCOUNTER 2019-09-02 18:45 | Inpatient (IN) | payer MEDICARE ==
[~2019-09-02] VITALS: Ht 165.1 cm; Wt 64.0 kg
[~2019-09-02 18:45] MED LIST changes: -ALBU3IS INH; -AMOCLA875 PO; -Amiodarone HCl200 MG PO; -BUDE10.22 INH; -CARV6.25 PO; -CARVEDILOL3.125 MG PO; -DIGOX125 MC1 PO; -Duoneb 2.5-0.5 M3 ML INH; -FUROSEMIDE40 MG PO; -K-Dur 20 meq T20 MEQ PO; -Lipitor20 MG PO; -METO25 PO; -ONDA4ODT PO; -SPIRONOLACTONE25 MG PO; -TORS10; -TORSE20 PO
[2019-09-02 19:43] LABS: BASOPHILS ABSOLUTE AUTO 0.02 K/mm3 (0.00-0.23); BASOPHILS PERCENT AUTO 0 % (0-2); EOSINOPHILS ABSOLUTE AUTO 0.09 K/mm3 (0.00-0.68); EOSINOPHILS PERCENT AUTO 1 % (0-6); Hemoglobin 17.9 g/dL (11.5-16.0); IMMATURE GRAN ABSOLUTE AUTO 0.18 K/mm3 (0.00-0.10); IMMATURE GRAN PERCENT AUTO 2 % (0-1); LYMPHOCYTES ABSOLUTE AUTO 1.65 K/mm3 (0.84-5.20); LYMPHOCYTES PERCENT AUTO 14 % (21-46); MONOCYTES ABSOLUTE AUTO 0.78 K/mm3 (0.16-1.47); MONOCYTES PERCENT AUTO 7 % (4-13); Mean Corpuscular HGB 29.6 pg (26.0-34.0); Mean Corpuscular HGB Conc 32.4 g/dL (31.5-36.5); Mean Corpuscular Volume 91 fL (80-100); Mean Platelet Volume 10.4 fL (9.1-12.4); NEUTROPHILS ABSOLUTE AUTO 9.17 K/mm3 (1.96-9.15); NEUTROPHILS PERCENT AUTO 77 % (41-73); Platelet Count 117 K/mm3 (150-400); RDW Coefficient Variation 13.5 % (11.7-14.2); RDW Standard Deviation 45.5 fL (35.1-46.3); Red Blood Cell Count 6.05 M/mm3 (3.80-5.20); White Blood Cell Count 11.89 K/mm3 (4.00-11.30)
[2019-09-02 19:47] LABS: Hematocrit 55.2 % (33.0-51.0)
[2019-09-02 20:01] LABS: Albumin/Globulin Ratio 0.8 (0.8-1.8); Bilirubin, Total 0.6 mg/dL (0.1-1.0); Bun/Creatinine Ratio 37.4 (12.0-20.0); Calcium, Blood 8.6 mg/dL (8.5-10.1); Creatinine, Blood 1.9 mg/dL (0.40-1.00); Globulin, Blood 3.8 g/dL (2.2-4.0); Potassium, Blood 4.9 mmol/L (3.5-5.5); Total Protein, Blood 6.8 g/dL (6.4-8.2)
[2019-09-02 21:05] LABS: International Normalized Ratio 0.97; Prothrombin Time Results 10.3 Sec (9.7-11.5)
[2019-09-02 21:12] LABS: Source, Urine Catheter
[2019-09-02 21:14] LABS: Bilirubin, Urine Neg (Neg); Blood, Urine 3+ (Neg); Glucose Qualitative, Urine 1+ (Neg); Ketones, Urine Neg (Neg); Leukocyte Esterase, Urine Neg (Neg); Nitrite, Urine Neg (Neg); Protein, Urine Neg (Neg); Urobilinogen, Urine NORM (Normal); pH, Urine 6.5 (5.0-8.0)
[2019-09-02 21:18] LABS: Appearance, Urine Clear (Clear); Color, Urine Yellow (P-Yellow)
[2019-09-02 21:20] LABS: Bacteria Not Seen /hpf; Squamous Epithelial Cells Few /hpf (Few); White Blood Cells, Urine Rare /hpf (0-5)
[2019-09-02] MEDS ORDERED: ALBU3IS INH (22:17)
[2019-09-02 22:18] LABS: Influenza A Negative (NEGATIVE); Influenza B Negative (NEGATIVE)
[2019-09-02] MEDS ORDERED: CARVEDILOL3.125 MG PO (22:18)
[2019-09-02] MEDS ORDERED: ANAS1 PO (22:20)
[2019-09-02] MEDS ORDERED: Oxybutynin Chlo15 MG PO (22:20)
[2019-09-02] MEDS ORDERED: Lipitor20 MG PO (22:20)
[2019-09-02] MEDS ORDERED: Prednisone2.5 MG PO (22:20)
[2019-09-02] MEDS ORDERED: TORSE20 PO (22:21)
[2019-09-02] MEDS ORDERED: Amiodarone HCl200 MG PO (22:24)
[2019-09-02] MEDS ORDERED: BUDE10.22 INH (22:26)
[2019-09-02] MEDS ORDERED: SPIRONOLACTONE25 MG PO (22:27)
[2019-09-02] MEDS ORDERED: GABA300 PO (22:28)
[2019-09-02] MEDS ORDERED: LEVSOD75 PO (22:29)
[2019-09-02] MEDS ORDERED: Nitrofurantoin50 MG PO (22:29)
[2019-09-02] MEDS ORDERED: FUROSEMIDE40 MG PO (22:30)
[2019-09-02] MEDS ORDERED: K-Dur 20 meq T20 MEQ PO (22:30)
[2019-09-02] MEDS ORDERED: DIGOX125 MC1 PO (22:31)
[2019-09-02] MEDS ORDERED: ELIQUIS2.5 MG PO (22:47)
--- NOTE | 2019-09-02 23:35 | NUR ---
RECEIVED REPORT FROM KEVIN KING RN. PT ARRIVED TO 327 VIA GURNEY. PT TRANSFERRED TO BED VIA SLIDER SHEET. A/O. RESP E/U ON RA. EXTRA LINENS REMOVED, PERICARE GIVEN AND NEW PULL UPS PLACED.
[2019-09-03 05:39] LABS: BASOPHILS ABSOLUTE AUTO 0.01 K/mm3 (0.00-0.23); BASOPHILS PERCENT AUTO 0 % (0-2); EOSINOPHILS ABSOLUTE AUTO 0.16 K/mm3 (0.00-0.68); EOSINOPHILS PERCENT AUTO 2 % (0-6); Hematocrit 46.4 % (33.0-51.0); IMMATURE GRAN ABSOLUTE AUTO 0.12 K/mm3 (0.00-0.10); IMMATURE GRAN PERCENT AUTO 1 % (0-1); LYMPHOCYTES ABSOLUTE AUTO 1.61 K/mm3 (0.84-5.20); LYMPHOCYTES PERCENT AUTO 15 % (21-46); MONOCYTES ABSOLUTE AUTO 0.78 K/mm3 (0.16-1.47); MONOCYTES PERCENT AUTO 7 % (4-13); Mean Corpuscular HGB 29.6 pg (26.0-34.0); Mean Corpuscular HGB Conc 32.3 g/dL (31.5-36.5); Mean Corpuscular Volume 92 fL (80-100); Mean Platelet Volume 10.3 fL (9.1-12.4); NEUTROPHILS ABSOLUTE AUTO 8.17 K/mm3 (1.96-9.15); NEUTROPHILS PERCENT AUTO 75 % (41-73); Platelet Count 196 K/mm3 (150-400); RDW Coefficient Variation 13.6 % (11.7-14.2); RDW Standard Deviation 46.3 fL (35.1-46.3); Red Blood Cell Count 5.07 M/mm3 (3.80-5.20); White Blood Cell Count 10.85 K/mm3 (4.00-11.30)
[2019-09-03 05:58] LABS: Bun/Creatinine Ratio 38.7 (12.0-20.0); Calcium, Blood 7.5 mg/dL (8.5-10.1); Creatinine, Blood 1.42 mg/dL (0.40-1.00)
--- NOTE | 2019-09-03 06:35 | NUR ---
SHIFT SUMMARY PT ARRIVED TO FLOOR IN NO DISTRESS. PT HAS BEEN SLEEPING T/O REMAINDER OF SHIFT. PT CURRENTLY SLEEPING IN NO DISTRESS. CALL LIGHT IN REACH.
[2019-09-03 11:45] LABS: Adenovirus F 40/41 Not Detected (NOT DETECT); Astrovirus Not Detected (NOT DETECT); Campylobacter Sp Not Detected (NOT DETECT); Cryptosporidium Not Detected (NOT DETECT); Cyclospora Cayetanensis Not Detected (NOT DETECT); E. Coli O157 Not Detected (NOT DETECT); Entamoeba Histolytica Not Detected (NOT DETECT); Enteroaggregative E. coli-EAEC Not Detected (NOT DETECT); Enteropathogenic E. coli-EPEC Not Detected (NOT DETECT); Enterotoxigenic E. coli-ETEC Not Detected (NOT DETECT); Giardia Lamblia Not Detected (NOT DETECT); Norovirus GI/GII Not Detected (NOT DETECT); Plesiomonas Shigelloides Not Detected (NOT DETECT); Rotavirus A Not Detected (NOT DETECT); Salmonella Sp Not Detected (NOT DETECT); Sapovirus Not Detected (NOT DETECT); Shiga Toxin-prod E. coli-STEC Not Detected (NOT DETECT); Shigella/Enteroin E. coli-EIEC Not Detected (NOT DETECT); Vibrio Cholerae Not Detected (NOT DETECT); Vibrio Sp Not Detected (NOT DETECT); Yersinia Enterocolitica Not Detected (NOT DETECT)
--- NOTE | 2019-09-03 17:41 | NUR ---
SHIFT SUMMARY PATIENT IS PLEASANT, ALERT AND ORIENTED. NO ACUTE CONCERNS AT THIS TIME. HER BLOOD PRESSURE IS BEING MONITORED. CURRENTLY HER MEDICATION REGIMEN HAS CHANGED. AT THIS TIME NO CONCERNS PER PATIENT. SHE NOTES THAT SHE IS WEAK BUT STARTING TO FEEL BETTER.
--- NOTE | 2019-09-04 04:46 | NUR ---
BOW MAKER PRODUCTION SUMMARY PT A/O X4, PLEASANT AND COOPERATIVE. DENIED PAIN, NAUSEA AND DIZZINESS. BLOOD PRESSURE WAS 98/69 AT 2113. PT ASYMPTOMATIC. PT ALSO TAKING LOPRESSOR FOR HR CONTROL Q8 HOURS. CHARGE NURSE NOTIFIED. BLOOD PRESSURE RE-ASSESSED AT 0105 AND CAME UP TO 117/84. CONTINOUS NS RUNNING AT 150ML/HR. NO ACUTE CHANGES. WILL CONTINUE TO MONITOR.
[2019-09-04 05:45] LABS: Bun/Creatinine Ratio 26.4 (12.0-20.0); Calcium, Blood 7.6 mg/dL (8.5-10.1); Creatinine, Blood 1.21 mg/dL (0.40-1.00); Magnesium, Blood 2.2 mg/dL (1.6-2.4); Potassium, Blood 4.4 mmol/L (3.5-5.5)
[2019-09-04] MEDS ORDERED: METO25 PO (14:09)
--- NOTE | 2019-09-04 15:21 | NUR ---
PATIENT IV WAS REMOVED. NO ACUTE CONCERNS. SPOKE THROUGH THE DISCHARGE INSTRUCTIONS WITH THE PATIENT AND HER .
== END 2019-09-04 14:18 | disposition home or self-care (01) | DRG 641 ==
LOC: ER 18:45 → MEDS 18:46
PROVIDERS: Internal Medicine; Physician Assistant; ADMIT Hospitalist
DX: E86.1 Hypovolemia (principal); N17.9 Acute kidney failure, unspecified; R65.10 Systemic inflammatory response syndrome (SIRS) of non-infectious origin without acute organ dysfunction; I48.92 Unspecified atrial flutter; E86.0 Dehydration; E87.2 Acidosis; N18.3 Chronic kidney disease, stage 3 (moderate); I48.0 Paroxysmal atrial fibrillation; M35.3 Polymyalgia rheumatica; M19.90 Unspecified osteoarthritis, unspecified site; E78.5 Hyperlipidemia, unspecified; M81.0 Age-related osteoporosis without current pathological fracture; I95.9 Hypotension, unspecified; I73.89 Other specified peripheral vascular diseases; R19.7 Diarrhea, unspecified; I07.1 Rheumatic tricuspid insufficiency; Z87.891 Personal history of nicotine dependence; Z85.3 Personal history of malignant neoplasm of breast; Z79.811 Long term (current) use of aromatase inhibitors; Z79.01 Long term (current) use of anticoagulants; Z79.891 Long term (current) use of opiate analgesic; Z79.52 Long term (current) use of systemic steroids; Z79.899 Other long term (current) drug therapy
CPT/HCPCS: 0097U; 36415; 71045; 74176; 80048; 80053; 81001; 83605; 83735; 84484; 85025; 85610; 85651; 85730; 87040; 87086; 87804; 93005; 93010; 93922; 94640; 94760; 96360; 96361; 99285-25; G0378; J7030; J7040; J7512

== ENCOUNTER 2019-09-29 17:25 | Inpatient (IN) | payer MEDICARE ==
[~2019-09-29] VITALS: Ht 170.2 cm; Wt 104.3 kg
[~2019-09-29 17:25] MED LIST changes: +ALBU3IS INH; +Amiodarone HCl200 MG PO; +BUDE10.22 INH; +CARVEDILOL3.125 MG PO; +DIGOX125 MC1 PO; +FUROSEMIDE40 MG PO; +K-Dur 20 meq T20 MEQ PO; +Lipitor20 MG PO; +METO25 PO; +SPIRONOLACTONE25 MG PO; +TORSE20 PO
[2019-09-29 18:07] LABS: BASOPHILS ABSOLUTE AUTO 0.05 K/mm3 (0.00-0.23); BASOPHILS PERCENT AUTO 0 % (0-2); EOSINOPHILS ABSOLUTE AUTO 0.01 K/mm3 (0.00-0.68); EOSINOPHILS PERCENT AUTO 0 % (0-6); Hematocrit 49.1 % (33.0-51.0); Hemoglobin 15.9 g/dL (11.5-16.0); IMMATURE GRAN ABSOLUTE AUTO 0.07 K/mm3 (0.00-0.10); IMMATURE GRAN PERCENT AUTO 1 % (0-1); LYMPHOCYTES ABSOLUTE AUTO 1.21 K/mm3 (0.84-5.20); LYMPHOCYTES PERCENT AUTO 10 % (21-46); MONOCYTES PERCENT AUTO 2 % (4-13); Mean Corpuscular HGB 29.8 pg (26.0-34.0); Mean Corpuscular HGB Conc 32.4 g/dL (31.5-36.5); Mean Corpuscular Volume 92 fL (80-100); Mean Platelet Volume 10.3 fL (9.1-12.4); NEUTROPHILS PERCENT AUTO 87 % (41-73); Platelet Count 199 K/mm3 (150-400); RDW Coefficient Variation 14.6 % (11.7-14.2); RDW Standard Deviation 48.5 fL (35.1-46.3); Red Blood Cell Count 5.33 M/mm3 (3.80-5.20); White Blood Cell Count 12.74 K/mm3 (4.00-11.30)
[2019-09-29 18:28] LABS: Alanine Aminotransfer (ALT/SGP 27 U/L (12-78); Albumin, Blood 3.6 g/dL (3.4-5.0); Alk Phos 62 U/L (50-136); Anion Gap 5 mmol/L (6-16); Aspartate Aminotrans (AST/SGOT 17 U/L (12-37); Bilirubin, Total 1.2 mg/dL (0.1-1.0); Blood Urea Nitrogen 29 mg/dL (8-24); CO2, Blood 32 mmol/L (21-32); Calcium, Blood 9.4 mg/dL (8.5-10.1); Chloride, Blood 95 mmol/L (98-108); Creatinine, Blood 1.38 mg/dL (0.40-1.00); Globulin, Blood 3.6 g/dL (2.2-4.0); Glomerular Filtration Rate 39 (60-); Glucose, Blood 151 mg/dL (70-99); Potassium, Blood 3.7 mmol/L (3.5-5.5); Sodium, Blood 132 mmol/L (136-145); Total Protein, Blood 7.2 g/dL (6.4-8.2); Troponin I <0.015 ng/mL (0.000-0.040)
[2019-09-29 22:57] LABS: International Normalized Ratio 1.02; Prothrombin Time Results 10.9 Sec (9.7-11.5)
[2019-09-29 23:25] LABS: Source, Urine Clean Catch
[2019-09-29 23:30] LABS: Bilirubin, Urine Neg (Neg); Blood, Urine 3+ (Neg); Glucose Qualitative, Urine Neg (Neg); Ketones, Urine Neg (Neg); Leukocyte Esterase, Urine Neg (Neg); Nitrite, Urine Neg (Neg); Protein, Urine Neg (Neg); Urobilinogen, Urine NORM (Normal); pH, Urine 6.5 (5.0-8.0)
[2019-09-29 23:43] LABS: Appearance, Urine Clear (Clear); Bacteria Not Seen /hpf; Color, Urine Yellow (P-Yellow); Squamous Epithelial Cells Rare /hpf (Few); White Blood Cells, Urine Not Seen /hpf (0-5)
--- NOTE | 2019-09-30 00:15 | NUR ---
PT ARRIVED TO ICU 12 FROM ER VIA GURROSENDA. ACCOMPANIED BY SKI TOW OPERATOR. PT IS A/O X4. DENIES PAIN, N/V, AND SOB. ON 4L NC. PT HAS NEW IN PLACE. STATES SHE HAS HAD PRODUCTIVE COUGH X2 DAYS WITH THICK YELLOW SPUTUM. NO SIGN OF DISTRESS.
[2019-09-30 02:44] LABS: Adenovirus Not Detected (NOT DETECT); Bordetella pertussis Not Detected (NOT DETECT); Chlamydophila pneumoniae Not Detected (NOT DETECT); Coronavirus 229E Not Detected (NOT DETECT); Coronavirus HKU1 Not Detected (NOT DETECT); Coronavirus NL63 Not Detected (NOT DETECT); Coronavirus OC43 Not Detected (NOT DETECT); Human Metapneumovirus Not Detected (NOT DETECT); Human Rhinovirus/Enterovirus Not Detected (NOT DETECT); Influenza A Not Detected (NOT DETECT); Influenza A/2009-H1 Not Detected (NOT DETECT); Influenza A/H1 Not Detected (NOT DETECT); Influenza A/H3 Not Detected (NOT DETECT); Influenza B Not Detected (NOT DETECT); Mycoplasma pneumoniae Not Detected (NOT DETECT); Parainfluenza Virus 1 Not Detected (NOT DETECT); Parainfluenza Virus 2 Not Detected (NOT DETECT); Parainfluenza Virus 3 Not Detected (NOT DETECT); Parainfluenza Virus 4 Not Detected (NOT DETECT); Respiratory Syncytial Virus Not Detected (NOT DETECT)
[2019-09-30 03:57] LABS: Hemoglobin 12.7 g/dL (11.5-16.0); Mean Corpuscular HGB 29.6 pg (26.0-34.0); Mean Corpuscular HGB Conc 31.8 g/dL (31.5-36.5); Mean Corpuscular Volume 93 fL (80-100); Mean Platelet Volume 10.6 fL (9.1-12.4); Platelet Count 131 K/mm3 (150-400); RDW Coefficient Variation 14.6 % (11.7-14.2); RDW Standard Deviation 49.2 fL (35.1-46.3); Red Blood Cell Count 4.29 M/mm3 (3.80-5.20); White Blood Cell Count 15.01 K/mm3 (4.00-11.30)
[2019-09-30 04:11] LABS: Albumin, Blood 2.5 g/dL (3.4-5.0); Albumin/Globulin Ratio 0.9 (0.8-1.8); Bilirubin, Total 0.9 mg/dL (0.1-1.0); Bun/Creatinine Ratio 20.9 (12.0-20.0); Creatinine, Blood 1.15 mg/dL (0.40-1.00); Globulin, Blood 2.9 g/dL (2.2-4.0); Potassium, Blood 3.8 mmol/L (3.5-5.5); Total Protein, Blood 5.4 g/dL (6.4-8.2)
--- NOTE | 2019-09-30 06:41 | NUR ---
PT RESTING IN BED. BP HAS IMPROVED SINCE ARRIVING TO ICU. HAS BEEN A/O X4 SINCE BEING IN ICU. ADEQUATE URINE OUTPUT. WAS ABLE TO GET UP TO BSC WITH 1 PERSON ASSIST. HAD XL BM. NO SIGN OF DISTRESS. CALL LIGHT IN REACH.
--- NOTE | 2019-09-30 07:54 | NUR ---
ASSUMED CARE OF PT. PT IS ALERT AND ORIENTED. DENIES PAIN AT THIS TIME. PT IS A LITTLE HARD OF HEARING. PT'S AT BEDSIDE.
[2019-09-30 08:02] LABS: Free Thyroxine 1.6 ng/dL (0.70-1.60); Thyroid Stimulating Hormone 0.497 uIU/mL (0.360-4.800)
--- NOTE | 2019-09-30 09:33 | NUR ---
DR. CLINE AT BEDSIDE. UPDATED HIM OF PATIENT'S STATUS.
[2019-09-30] MEDS ORDERED: CARV6.25 PO (09:51)
[2019-09-30] MEDS ORDERED: BENZ100A PO (09:52)
[2019-09-30] MEDS ORDERED: OXYC5 PO (09:52)
[2019-09-30] MEDS ORDERED: Duoneb 2.5-0.5 M3 ML INH (09:54)
[2019-09-30] MEDS ORDERED: TORS10 (09:55)
[2019-09-30] MEDS ORDERED: TORSE20 PO (10:02)
--- NOTE | 2019-09-30 16:00 | NUR ---
GAVE BROCHURE OF "MY PLAN TO IDENTIFY INFECTION/SEPSIS" READ TO HER WHAT SHE NEEDED TO DO. THIS WILL BE SENT WITH HER WHEN SHE GOES HOME.
--- NOTE | 2019-09-30 17:28 | NUR ---
SHIFT SUMMARY: PT IS ALERT AND ORIENTED. NOW PCU STATUS. BLOOD PRESSURE HAS BEEN STABLE. AFEBRILE. STILL ON 4LPM NC. STILL WITH OCCASSIONAL PRODUCTIVE COUGH BUT UNABLE TO EXPECTORATE YET. STILL NEEDING SPUTUM SPECIMEN FOR SPUTUM CULTURE.
--- NOTE | 2019-09-30 20:00 | NUR ---
ASSUMED CARE OF PATIENT AT 1915. REPORT RECEIVED AT BEDSIDE. PT PRESENTS IN BED. ALERT AND ORIENTED. PLEASANT AND COOPERATIVE WITH CARE AND ASSESSMENT. DENIES COMPLAINTS OF PAIN. DOES HAVE A MODERATELY STRONG NON-PRODUCTIVE COUGH. PT STATES SHE IS UNABLE TO EXPECTORATE SPUTUM. PT MAINTAINING > 90 PERCENT SATURATIONS. WILL REVIEW CHART AND PLAN OF CARE FOR THIS PT.
--- NOTE | 2019-09-30 23:00 | NUR ---
PT WAS ABLE TO EXPECTORATE A VERY THICK MODERATE AMOUNT OF ROMEO COLORED SPUTUM. THIS SENT TO LAB FOR TESTING. HAVE PROVIDED PT WITH YAUNKEUR TO SELF SUCTION HER SECRETIONS. PT STATES THIS HAS BEEN HELPFUL. PT ABLE TO TAKE HER PO HS MEDICATIONS WITH WATER. NO COUGH WITH SWALLOW. PT ASSISTED WITH TURNS Q 2 HOURS. DOES HAVE COMPLAINT OF SORENESS TO HER NECK. PROVIDED ROLLED TOWEL AND WARM PACK UNDER HER NECK. WILL CONTINUE TO MONITOR.
[2019-10-01 05:06] LABS: BASOPHILS ABSOLUTE AUTO 0.02 K/mm3 (0.00-0.23); BASOPHILS PERCENT AUTO 0 % (0-2); EOSINOPHILS PERCENT AUTO 0 % (0-6); Hematocrit 40.4 % (33.0-51.0); Hemoglobin 12.8 g/dL (11.5-16.0); IMMATURE GRAN ABSOLUTE AUTO 0.15 K/mm3 (0.00-0.10); IMMATURE GRAN PERCENT AUTO 1 % (0-1); LYMPHOCYTES ABSOLUTE AUTO 1.08 K/mm3 (0.84-5.20); LYMPHOCYTES PERCENT AUTO 6 % (21-46); MONOCYTES PERCENT AUTO 3 % (4-13); Mean Corpuscular HGB 29.4 pg (26.0-34.0); Mean Corpuscular HGB Conc 31.7 g/dL (31.5-36.5); Mean Corpuscular Volume 93 fL (80-100); Mean Platelet Volume 10.4 fL (9.1-12.4); NEUTROPHILS ABSOLUTE AUTO 16.53 K/mm3 (1.96-9.15); NEUTROPHILS PERCENT AUTO 91 % (41-73); Platelet Count 128 K/mm3 (150-400); RDW Coefficient Variation 14.5 % (11.7-14.2); RDW Standard Deviation 48.9 fL (35.1-46.3); Red Blood Cell Count 4.36 M/mm3 (3.80-5.20); White Blood Cell Count 18.28 K/mm3 (4.00-11.30)
[2019-10-01 05:26] LABS: Bun/Creatinine Ratio 20.1 (12.0-20.0); Potassium, Blood 3.4 mmol/L (3.5-5.5)
--- NOTE | 2019-10-01 06:23 | NUR ---
PT MEDICATED WITH TESSLON PEARLS PER HER REQUEST. STATES WITH HER COUGH, SHE HAS NOT BEEN ABLE TO REST WELL THIS NIGHT. HAVE NOTED THAT HER COUGH HAS DECREASED AFTER TESSLON GIVEN. PT MAINTAINS > 90 PERCENT SATURATION. WILL CONTINUE TO MONITOR PT, AND WILL REPORT OFF TO ONCOMING RN.
--- NOTE | 2019-10-01 08:50 | NUR ---
ASSUMED CARE RECEIVED REPORT FROM KIA DIAS. PT IS LYING IN BED ALERT AND ORIENTED X 4 - ON 3L NC. SHE IS IN A FLUTTER WITH A RATE OF 108-112. STABLE BP. BED IS LOW AND LOCKED. CALL LIGHT WITHIN REACH.
--- NOTE | 2019-10-01 10:17 | NUR ---
UPDATE PT LEFT TO IMAGING FOR CHEST XRAY AT 1015. SHE WAS HOOKED UP TO BENOIT.
--- NOTE | 2019-10-01 11:02 | NUR ---
PT ARRIVED BACK TO ICU AROUND 1035. NO ACUTE EVENTS OCCURED.
--- NOTE | 2019-10-01 13:17 | NUR ---
PT TRANSFERRED TO PCU 12. PT HAD STABLE VITALS, ALERT AND ORIENTED X 4, ON ROOM AIR, AND STATING HER PAIN WAS MILD COMPARED TO EARLIER. SHE MOVED VIA WHEELCHAIR.
--- NOTE | 2019-10-01 13:36 | NUR ---
Pt arrived to room PCU 12 from ICU via w/c. Tolerated well. Pt states that she is feeling better but not 100% yet. LS diminished and coarse. Pt becomes SOB with exertion. Denies pain at this time. Pt and oriented to room and unit. Denies questions at this time. VSS. Will continue to monitor.
--- NOTE | 2019-10-01 18:08 | NUR ---
Pt sitting up in bed finishing dinner. Pt has been resting since arrival to unit. Arrived on RA and maintains biox > 90% while awake. However, when pt is dozing biox decreases below 90. Was placed on 2l per NC for rest. Pt stated that she also uses oxygen for sleep at home but is unsure of the L. Pt did have a c/o back pain this shift that was relieved with oxycodone. Pt has chronic back and joint pain r/t chronic conditions. Denies other needs this shift. Will report to night RN.
--- NOTE | 2019-10-01 21:18 | NUR ---
CARE ASSUMED CARE AND REPORT ASSUMED FROM DARLENE ADAM. PT LYING IN BED ATTEMPTING TO SLEEP. C/O PAIN TO BACK AND LEGS. ALSO C/O COUGHING. OXYCODONE AND TESSALON PEARLS GIVEN FOR PAIN AND COUGH. BP SLIGHTLY ELEVATED; POSSIBLY FROM PAIN? AFIB, HR 100-110. SPO2 92% ON 2L NC. LUNG SOUNDS COARSE ON R SIDE BUT CLEAR ON L SIDE. NEW CATH SECURED AND PATENT. WILL CONTINUE TO MONITOR.
--- NOTE | 2019-10-02 00:05 | NUR ---
REASSESSMENT PT SLEEPING BUT EASILY AWAKENS. C/O PAIN INCREASING; WILL MEDICATE WHEN TIME ALLOWS; PT AWARE. VSS. REMAINS ON 2L NC. ANBX INFUSING. AFEBRILE. WILL CONTINUE TO MONITOR.
[2019-10-02 04:39] LABS: BASOPHILS ABSOLUTE AUTO 0.05 K/mm3 (0.00-0.23); BASOPHILS PERCENT AUTO 0 % (0-2); EOSINOPHILS PERCENT AUTO 0 % (0-6); Hematocrit 40.6 % (33.0-51.0); IMMATURE GRAN ABSOLUTE AUTO 0.37 K/mm3 (0.00-0.10); IMMATURE GRAN PERCENT AUTO 2 % (0-1); LYMPHOCYTES ABSOLUTE AUTO 0.86 K/mm3 (0.84-5.20); LYMPHOCYTES PERCENT AUTO 4 % (21-46); MONOCYTES ABSOLUTE AUTO 0.51 K/mm3 (0.16-1.47); MONOCYTES PERCENT AUTO 3 % (4-13); Mean Corpuscular HGB 29.4 pg (26.0-34.0); Mean Corpuscular Volume 92 fL (80-100); Mean Platelet Volume 10.3 fL (9.1-12.4); NEUTROPHILS ABSOLUTE AUTO 18.51 K/mm3 (1.96-9.15); NEUTROPHILS PERCENT AUTO 91 % (41-73); Platelet Count 143 K/mm3 (150-400); RDW Coefficient Variation 14.8 % (11.7-14.2); RDW Standard Deviation 49.3 fL (35.1-46.3); Red Blood Cell Count 4.42 M/mm3 (3.80-5.20)
[2019-10-02 04:54] LABS: Anion Gap 4 mmol/L (6-16); Blood Urea Nitrogen 18 mg/dL (8-24); Bun/Creatinine Ratio 20.2 (12.0-20.0); CO2, Blood 29 mmol/L (21-32); Calcium, Blood 8.1 mg/dL (8.5-10.1); Chloride, Blood 109 mmol/L (98-108); Creatinine, Blood 0.89 mg/dL (0.40-1.00); Glomerular Filtration Rate >60 (60-); Glucose, Blood 144 mg/dL (70-99); Sodium, Blood 142 mmol/L (136-145)
--- NOTE | 2019-10-02 06:10 | NUR ---
SHIFT SUMMARY PT SLEPT MOST OF NIGHT. UP TO BEDSIDE COMMODE NEEDED. OXYCODONE PO GIVEN FOR PAIN CONTROL NEEDED. BP ELEVATED WHEN BACK PAIN INCREASED. AFERBILE. WORE 2L NC THROUGHOUT NIGHT SHE DOES AT HOME. POTASSIUM REPLACEMENT INFUSING THIS AM. WILL GIVE BEDSIDE, HANDOFF REPORT TO DAY RN.
--- NOTE | 2019-10-02 16:06 | NUR ---
UPDATE PT ALERT AND ORIENTED. BP ELEVATED WITH SBP>170. HR REMAINS AFLUTTER WITH RATE 70'S AT THIS TIME. DR. CLINE CALLED AND UPDATED ABOUT BP. AWAITING NEW ORDERS AT THIS TIME. WILL CONTINUE TO MONITOR CLOSELY.
--- NOTE | 2019-10-02 17:53 | NUR ---
SHIFT SUMMARY PT ALERT AND ORIENTED. VS STABLE AT THIS TIME. BP IMPROVED WITH MEDICATION ADMINISTRATION. HR AFLUTTER 70'S. O2 SATS REMAIN ABOVE 90% ON 2L NC. NEW CATHETER PATENT AND DRAINING CLEAR YELLOW URINE. PT COMPLAINED OF PAIN IN HER BACK THIS EVENING AND MEDICATED PER EMAR. WILL CONTINUE TO MONITOR AND REPORT TO ONCOMING RN. CALL LIGHT IN REACH.
--- NOTE | 2019-10-02 21:31 | NUR ---
ASSUMED CARE OF PT, REPORT RCV'D FROM KIA TORREZ. PT ASLEEP DURING ASSESSMENT, PT OPENS EYES TO VERBAL STIMULATION, ANSWERS QUESTIONS APPROPRIATELY AND THEN QUICKLY FALLS BACK TO SLEEP. PT APPEARS ANXIOUS IMMEDIATELY CONCERNED ABOUT HER BLOOD PRESSURE. LUNG SOUNDS COARSE T/O, YANKAUER IN PT'S LAP TO SUCTION SPUTUM NEEDED. THICK BLOOD TINGED SPUTUM NOTED IN YANKAUER TUBING. NEW PATENT AND DRAINING. VSS. SEE FULL SHIFT ASSESSMENT.
[2019-10-03 04:09] LABS: Anion Gap 4 mmol/L (6-16); Blood Urea Nitrogen 21 mg/dL (8-24); Bun/Creatinine Ratio 24.3 (12.0-20.0); CO2, Blood 29 mmol/L (21-32); Chloride, Blood 109 mmol/L (98-108); Creatinine, Blood 0.86 mg/dL (0.40-1.00); Glomerular Filtration Rate >60 (60-); Glucose, Blood 115 mg/dL (70-99); Potassium, Blood 3.4 mmol/L (3.5-5.5); Sodium, Blood 142 mmol/L (136-145)
--- NOTE | 2019-10-03 06:24 | NUR ---
SHIFT SUMMARY NO ACUTE CHANGES OVERNIGHT. PT SLEPT WELL, MEDICATED FOR CHRONIC BACK PAIN NEEDED. VSS.
--- NOTE | 2019-10-03 14:15 | NUR ---
Attepmted to visit pt. She is out of the room for testing.
--- NOTE | 2019-10-03 17:06 | NUR ---
SHIFT SUMMARY: PT ALERT AND ORIENTED X3. PT CONTINUES ON IV ABO TX FOR SEPSIS PNA. PT ON CONTINUOUS O2 VIA NASAL CANNULA ON 3L SATS KEPT ABOVE 90%, COARSE CRACKLES PRESENT ON ALL FOUR LOBES, BLOODY SPUTUM PRESENT WHEN COUGHING, DR SMITH ORDERED CT CHEST SCAN W/O CONTRAST THAT WAS DONE TODAY AWAITING FOR PROVIDER TO REVIEW THE RESULT. PT'S HRR AFLUTTER ON THE 70'S PT DENIES ANY CHEST PAIN, PT NOT IN RESPI DISTRESS. PT C/O NAUSEA X 1 WITHOUT EMESIS AFTER IV VANCO INFUSION, IV ZOFRAN GIVEN AND WAS EFFECTIVE. PT ALSO C/O BACK PAIN 7/10 OXY 5MG GIVEN AND EFFECTIVE WELL 5/10. DR. SMITH ALSO ORDERED PT/OT TO EVAL AND TREAT. NEW CATHETER DRAINING PATENT AND INTACT VIA GRAVITY. PT CURRENTLY RESTING IN BED REFUSED BED BATH PT WAS TIRED FROM THERAPY EVAL THIS AM. TO CONTINUE TO MONITOR, TO GIVE REPORT TO ONCOMING SHIFT.
[2019-10-04 05:49] LABS: BASOPHILS ABSOLUTE AUTO 0.03 K/mm3 (0.00-0.23); BASOPHILS PERCENT AUTO 0 % (0-2); EOSINOPHILS ABSOLUTE AUTO 0.01 K/mm3 (0.00-0.68); EOSINOPHILS PERCENT AUTO 0 % (0-6); Hematocrit 41.3 % (33.0-51.0); Hemoglobin 13.1 g/dL (11.5-16.0); IMMATURE GRAN ABSOLUTE AUTO 0.18 K/mm3 (0.00-0.10); IMMATURE GRAN PERCENT AUTO 2 % (0-1); LYMPHOCYTES ABSOLUTE AUTO 1.04 K/mm3 (0.84-5.20); LYMPHOCYTES PERCENT AUTO 13 % (21-46); MONOCYTES ABSOLUTE AUTO 0.33 K/mm3 (0.16-1.47); MONOCYTES PERCENT AUTO 4 % (4-13); Mean Corpuscular HGB 29.5 pg (26.0-34.0); Mean Corpuscular HGB Conc 31.7 g/dL (31.5-36.5); Mean Corpuscular Volume 93 fL (80-100); Mean Platelet Volume 10.2 fL (9.1-12.4); NEUTROPHILS ABSOLUTE AUTO 6.15 K/mm3 (1.96-9.15); NEUTROPHILS PERCENT AUTO 80 % (41-73); Platelet Count 162 K/mm3 (150-400); RDW Coefficient Variation 14.6 % (11.7-14.2); RDW Standard Deviation 50.4 fL (35.1-46.3); Red Blood Cell Count 4.44 M/mm3 (3.80-5.20); White Blood Cell Count 7.74 K/mm3 (4.00-11.30)
--- NOTE | 2019-10-04 06:00 | NUR ---
SHIFT SUMMARY: RESTED QUIETLY WHEN UNDISTURBED DENIES DISCOMFORT.LUNG SOUNDS CLEAR UPPER LOBES DECREASED IN THE BASES RESPIRATIONS REGULAR AND EASY WITH O2 IN PLACE AT 3L/MIN PER NASAL CANNULA. SPO2 95% ABDOMEN SOFT WITH BOWEL SOUNDS FFOUR QUADS. NEW PATENT DRAINING RBO URINE NO EDEMA NOTED UP TO BSC WITH ASSIST INCONTINENT OF LIQUID LARGE BROWN STOOL BATH GIVEN AND LINEN CHANGED. CONTINUE TO MONITOR AND REPORT CHANGE IN PATIENT CONDITION
[2019-10-04 06:02] LABS: Anion Gap 8 mmol/L (6-16); Blood Urea Nitrogen 24 mg/dL (8-24); CO2, Blood 25 mmol/L (21-32); Calcium, Blood 7.9 mg/dL (8.5-10.1); Chloride, Blood 107 mmol/L (98-108); Creatinine, Blood 0.77 mg/dL (0.40-1.00); Glomerular Filtration Rate >60 (60-); Glucose, Blood 143 mg/dL (70-99); Potassium, Blood 3.5 mmol/L (3.5-5.5); Sodium, Blood 140 mmol/L (136-145)
[2019-10-04 11:21] LABS: Vancomycin, Trough 10.4 ug/mL (5.0-10.0)
--- NOTE | 2019-10-04 12:50 | NUR ---
Patient is sitting up in bed and eating lunch. Patient's spouse, Bill in bedside. Patient tells me about her medical issues, her family and her hopes to go home soon. I learn from patient that she has no zoroastrianism preference but finds strength and inspiration from family and from the hospital's amazing doctors and nurses. I listen empathically, reinforce helpful attitudes and practices and provide a calming presence . Patient responds well and voices appreciation for the visit. I will continue to remain available to patient and fmaily.
--- NOTE | 2019-10-04 17:35 | NUR ---
SHIFT SUMMARY PT ALERT AND ORIENTED. VS STABLE. HR AFLUTTER. BP STABLE. O2 SATS REMAIN ABOVE 90% ON RA. PT COMPLAINED OF PAIN IN HER BACK AND HIPS AND MEDICATED NEEDED. NEW CATHETER REMOVED THIS EVENING. STATUS CHANGED TO MEDICAL TODAY AND PLAN FOR POSSIBLE DC TO SNF TOMORROW. WILL CONTINUE TO MONITOR AND REPORT TO ONCOMING RN. CALL LIGHT IN REACH.
--- NOTE | 2019-10-05 00:01 | NUR ---
Patient arrived on floor from PCU to room 360. no comlaints of discomfort. Tele currently A flutter 70's. Able to pivot transfer with one assist to BSC. Ready for bed. Skin intact. follows commands. Aware of situation and place, date, birthday.
[2019-10-05 08:05] LABS: Hematocrit 43.1 % (33.0-51.0); Hemoglobin 13.9 g/dL (11.5-16.0); Mean Corpuscular HGB 29.6 pg (26.0-34.0); Mean Corpuscular HGB Conc 32.3 g/dL (31.5-36.5); Mean Corpuscular Volume 92 fL (80-100); Mean Platelet Volume 10.3 fL (9.1-12.4); Platelet Count 212 K/mm3 (150-400); RDW Coefficient Variation 14.6 % (11.7-14.2); RDW Standard Deviation 49.1 fL (35.1-46.3); White Blood Cell Count 9.28 K/mm3 (4.00-11.30)
[2019-10-05 08:26] LABS: Anion Gap 6 mmol/L (6-16); Blood Urea Nitrogen 25 mg/dL (8-24); Bun/Creatinine Ratio 32.4 (12.0-20.0); CO2, Blood 28 mmol/L (21-32); Chloride, Blood 107 mmol/L (98-108); Creatinine, Blood 0.77 mg/dL (0.40-1.00); Glomerular Filtration Rate >60 (60-); Glucose, Blood 129 mg/dL (70-99); Potassium, Blood 3.2 mmol/L (3.5-5.5); Sodium, Blood 141 mmol/L (136-145)
[2019-10-05 08:31] LABS: BAND PERCENT MAN 2 % (0-8); BASOPHILS PERCENT MAN 0 % (0-2); EOSINOPHILS PERCENT MAN 0 % (0-6); LYMPHOCYTES % ATYPICAL MANUAL 2 % (0-0); LYMPHOCYTES ABSOLUTE MAN 1.29 K/mm3 (0.84-5.20); LYMPHOCYTES PERCENT MAN 12 % (21-46); METAMYELOCYTE ABSOLUTE MAN 0.09 K/mm3 (0.00-0.00); METAMYELOCYTE PERCENT MAN 1 % (0-0); MONOCYTES ABSOLUTE MAN 0.55 K/mm3 (0.16-1.47); MONOCYTES PERCENT MAN 6 % (4-13); MYELOCYTE ABSOLUTE MAN 0.09 K/mm3 (0.00-0.00); MYELOCYTE PERCENT MAN 1 % (0-0); NEUTROPHILS ABSOLUTE MAN 7.23 K/mm3 (1.96-9.15); SEG NEUTROPHILS PERCENT MAN 76 % (41-73); TOTAL CELLS COUNTED 100
[2019-10-05] MEDS ORDERED: FURO40 PO (09:59)
--- NOTE | 2019-10-05 11:57 | NUR ---
SPOKE TO DR SMITH. [facility] NOW.
--- NOTE | 2019-10-05 12:20 | NUR ---
SPOKE TO PT. ADVISED DR SMITH STARTING [facility] TODAY TO ASSIST WITH HBP. STATES HER NAUSEA BETTER.
--- NOTE | 2019-10-05 12:30 | NUR ---
PT PLEASANT COOP. A/O X3 SOME PAIN BACK & RT LEG. CHRONIC. MED PER EMAR. IN ROOM. PT SOMEWHAT SLOW TO RESPOND. IS CABAZON. H/R IRREGULAR. PER TELE AFLUTTER 78. LUNGS CLEAR UPPER CRACKLES BASES BILATERAL. ON R.A. RESP EASY, UNLABORED. BT HYPOACTIVE. PT STATES JUST HAD BM THIS AM. SOFT. ABD NONTENDER. SOFT. VOIDS PER 1 ASST WITH FWW TO BSC. STATES CONTINENT. BED IN LOW POSITION, CALL LITE IN REACH, CALLS APPROP. PT BP ELEVATED. WILL NOTIFY DR HARRIS AM.
--- NOTE | 2019-10-05 12:34 | NUR ---
1000 DR DA SILVA ABOUT ELEVATED BP. WILL MAKE ORDERS
--- NOTE | 2019-10-05 14:08 | NUR ---
Spoke with [place] [employer] Console Operator Track Paola prior to visit. Paola provides this RN with copy of current POLST. Pt resting in bed and is A&OX4 and denies pain at this time. Pt's is at bedside. Pt reports frustration regarding being transfered from PCU to Medicl Floor at midnight and would like to file a complaint. Instructed Pt that Pt advocate will be notified. Pt expresses appreciation. Engaged in conversation regarding her current code status and current POLST. Pt reports she would like to have CPR just does not want to be intubated. She states she does not want half-way heroic measures. Due to Pt's frustrations this RN did not attempt further education regarding life sustaining measures. Pt also reports having an advanced directive completed at home. Requested for her or to provide copy to hospital. Pt states "If I come back". Pt continues to express frustration regarding being transfered in the middle of the night. Validated Pt's concerns. Spoke with [place] [employer] Console Operator Track Paola and relayed request for Dr Rubalcava to change code status from DNR to DNI. Spoke with Pt Advocate Jacy and relayed Pt's request. Palliative Care will remain available.
[2019-10-05] MEDS ORDERED: ONDA4ODT PO (15:14)
[2019-10-05] MEDS ORDERED: AMOCLA875 PO (15:14)
--- NOTE | 2019-10-05 15:48 | NUR ---
REPORT CALLED TO [place] , [facility] [id number].
--- NOTE | 2019-10-05 16:13 | NUR ---
TELE REMOVED. IV REMOVED INTACT. TRANPORT HERE AT 1612.
== END 2019-10-05 16:11 | DRG 871 ==
LOC: ER 17:25 → ICUW 23:21 → PCU 10-01 12:59 → MEDS 10-05 00:05
PROVIDERS: Family Medicine; Internal Medicine Endocrinology, Diabetes & Metabolism; Physician Assistant; ADMIT Internal Medicine
DX: A41.01 Sepsis due to Methicillin susceptible Staphylococcus aureus (principal); R65.21 Severe sepsis with septic shock; J96.21 Acute and chronic respiratory failure with hypoxia; J15.211 Pneumonia due to Methicillin susceptible Staphylococcus aureus; E27.3 Drug-induced adrenocortical insufficiency; E87.6 Hypokalemia; N18.3 Chronic kidney disease, stage 3 (moderate); I12.9 Hypertensive chronic kidney disease with stage 1 through stage 4 chronic kidney disease, or unspecified chronic kidney disease; I48.0 Paroxysmal atrial fibrillation; M35.3 Polymyalgia rheumatica; E03.9 Hypothyroidism, unspecified; M79.7 Fibromyalgia; E78.5 Hyperlipidemia, unspecified; M19.90 Unspecified osteoarthritis, unspecified site; M81.0 Age-related osteoporosis without current pathological fracture; E86.0 Dehydration; Z66 Do not resuscitate; Z79.52 Long term (current) use of systemic steroids; Z79.899 Other long term (current) drug therapy; Z85.3 Personal history of malignant neoplasm of breast; Z79.811 Long term (current) use of aromatase inhibitors; Z92.3 Personal history of irradiation; Z87.891 Personal history of nicotine dependence
CPT/HCPCS: 0099U; 36415; 51702; 71045; 71046; 71250; 80048; 80053; 80202; 81001; 83605; 83880; 84439; 84443; 84484; 85025; 85027; 85610; 87040; 87070; 87077; 87147; 87186; 87205; 93005; 93010; 94640; 94760; 94762; 96361-59; 96365-59; 96366-59; 96375-59; 97110; 97116; 97162; 97166; 97530; 99285-25; A9270; C1751; J0456; J0696; J1650; J1720; J1956; J2405; J2543; J2930; J3370; J3480; J7030; J7050; J7120

== ENCOUNTER 2019-10-14 12:44 | Inpatient (IN) | payer MEDICARE ==
[~2019-10-14] VITALS: Ht 165.1 cm; Wt 66.0 kg
[~2019-10-14 12:44] MED LIST changes: +AMOCLA875 PO; +CARV6.25 PO; +Duoneb 2.5-0.5 M3 ML NEB; +EUTHYROX88 MCG PO; +TORS10
[2019-10-14] MEDS ORDERED: Amiodarone HCl200 MG PO (13:04)
[2019-10-14 13:14] LABS: BASOPHILS ABSOLUTE AUTO 0.05 K/mm3 (0.00-0.23); BASOPHILS PERCENT AUTO 0 % (0-2); EOSINOPHILS ABSOLUTE AUTO 0.03 K/mm3 (0.00-0.68); EOSINOPHILS PERCENT AUTO 0 % (0-6); Hematocrit 46.3 % (33.0-51.0); IMMATURE GRAN ABSOLUTE AUTO 0.09 K/mm3 (0.00-0.10); IMMATURE GRAN PERCENT AUTO 1 % (0-1); LYMPHOCYTES ABSOLUTE AUTO 1.31 K/mm3 (0.84-5.20); LYMPHOCYTES PERCENT AUTO 7 % (21-46); MONOCYTES ABSOLUTE AUTO 1.07 K/mm3 (0.16-1.47); MONOCYTES PERCENT AUTO 6 % (4-13); Mean Corpuscular HGB 29.5 pg (26.0-34.0); Mean Corpuscular HGB Conc 32.4 g/dL (31.5-36.5); Mean Corpuscular Volume 91 fL (80-100); Mean Platelet Volume 11.3 fL (9.1-12.4); NEUTROPHILS ABSOLUTE AUTO 15.23 K/mm3 (1.96-9.15); NEUTROPHILS PERCENT AUTO 86 % (41-73); Platelet Count 237 K/mm3 (150-400); RDW Coefficient Variation 14.8 % (11.7-14.2); RDW Standard Deviation 49.1 fL (35.1-46.3); Red Blood Cell Count 5.08 M/mm3 (3.80-5.20); White Blood Cell Count 17.78 K/mm3 (4.00-11.30)
[2019-10-14 13:36] LABS: PCO2 Arterial 44.1 mmHg (35-45); PO2 Arterial 53.1 mmHg (80-100); pH Blood Arterial 7.51 (7.35-7.45)
[2019-10-14 13:58] LABS: Albumin, Blood 2.7 g/dL (3.4-5.0); Calcium, Blood 9.3 mg/dL (8.5-10.1); Potassium, Blood 4.1 mmol/L (3.5-5.5)
[2019-10-14 14:03] LABS: Albumin/Globulin Ratio 0.7 (0.8-1.8); Bun/Creatinine Ratio 19.8 (12.0-20.0); Creatinine, Blood 1.21 mg/dL (0.40-1.00); Globulin, Blood 3.7 g/dL (2.2-4.0); Total Protein, Blood 6.4 g/dL (6.4-8.2); Troponin I 0.026 ng/mL (0.000-0.040)
[2019-10-14] MEDS ORDERED: FUROSEMIDE40 MG PO (14:39)
[2019-10-14] MEDS ORDERED: Nitrofurantoin50 MG PO (14:40)
[2019-10-14] MEDS ORDERED: Tessalon200 MG PO (15:08)
[2019-10-14] MEDS ORDERED: ELIQUIS2.5 MG PO (15:08)
[2019-10-14] MEDS ORDERED: ONDA4ODT SL (15:09)
[2019-10-14] MEDS ORDERED: TORSE20 PO (15:09)
--- NOTE | 2019-10-14 19:26 | NUR ---
PT QUITE PLEASANT SINCE ADMIT. HUSB IN ROOM SOME TODDAY. ADMIT DONE. PIC NEEDED FOR SMALL RT BUTTOCKS WOUND. NO OTHER CONCERNS AT THIS TIME. ALYQUIS SENT TO [facility] FOR LABELING. BED IN LOW POSITION, CALL LITE IN REACH, CALLS APPROP
--- NOTE | 2019-10-14 22:08 | NUR ---
BEGINNING SHIFT SUMMARY ASSUMED CARE OF PT AT 1900. PT IS A/O X4, STATES SHE HAS NEUROPATHY IN HER HANDS AND FEET. HEART SOUNDS REGULAR. LUNG SOUNDS COARSE WITH EXPIRATORY WHEEZES THROUGHOUT, DENIES SOB/ CP AT THIS TIME, CURRENTLY ON 3L O2, NORMALLY PT USES 2L NC AT NIGHT, WILL CONSULT WITH RT, PT HAS AN OCCASIONAL COUGH. PT IS INCONTINET AT TIMES, ESPECIALLY WHEN SHE COUGHS. CALL LIGHT IN REACH, BED IN LOWEST POSTION, WILL CONTINUE TO MONITOR.
[2019-10-14 22:14] LABS: Adenovirus Not Detected (NOT DETECT); Bordetella pertussis Not Detected (NOT DETECT); Chlamydophila pneumoniae Not Detected (NOT DETECT); Coronavirus 229E Not Detected (NOT DETECT); Coronavirus HKU1 Not Detected (NOT DETECT); Coronavirus NL63 Not Detected (NOT DETECT); Coronavirus OC43 Not Detected (NOT DETECT); Human Metapneumovirus Not Detected (NOT DETECT); Human Rhinovirus/Enterovirus Not Detected (NOT DETECT); Influenza A Not Detected (NOT DETECT); Influenza A/2009-H1 Not Detected (NOT DETECT); Influenza A/H1 Not Detected (NOT DETECT); Influenza A/H3 Not Detected (NOT DETECT); Influenza B Not Detected (NOT DETECT); Mycoplasma pneumoniae Not Detected (NOT DETECT); Parainfluenza Virus 1 Not Detected (NOT DETECT); Parainfluenza Virus 2 Not Detected (NOT DETECT); Parainfluenza Virus 3 Not Detected (NOT DETECT); Parainfluenza Virus 4 Not Detected (NOT DETECT); Respiratory Syncytial Virus Not Detected (NOT DETECT)
[2019-10-15 04:44] LABS: BASOPHILS ABSOLUTE AUTO 0.01 K/mm3 (0.00-0.23); BASOPHILS PERCENT AUTO 0 % (0-2); EOSINOPHILS PERCENT AUTO 0 % (0-6); Hematocrit 41.5 % (33.0-51.0); Hemoglobin 13.3 g/dL (11.5-16.0); IMMATURE GRAN ABSOLUTE AUTO 0.06 K/mm3 (0.00-0.10); IMMATURE GRAN PERCENT AUTO 1 % (0-1); LYMPHOCYTES ABSOLUTE AUTO 0.94 K/mm3 (0.84-5.20); LYMPHOCYTES PERCENT AUTO 9 % (21-46); MONOCYTES ABSOLUTE AUTO 0.18 K/mm3 (0.16-1.47); MONOCYTES PERCENT AUTO 2 % (4-13); Mean Corpuscular HGB 29.6 pg (26.0-34.0); Mean Corpuscular Volume 92 fL (80-100); Mean Platelet Volume 10.7 fL (9.1-12.4); NEUTROPHILS ABSOLUTE AUTO 9.12 K/mm3 (1.96-9.15); NEUTROPHILS PERCENT AUTO 89 % (41-73); Platelet Count 211 K/mm3 (150-400); RDW Coefficient Variation 14.7 % (11.7-14.2); RDW Standard Deviation 49.9 fL (35.1-46.3); White Blood Cell Count 10.31 K/mm3 (4.00-11.30)
--- NOTE | 2019-10-15 04:48 | NUR ---
END SHIFT SUMMARY NO ACUTE CHANGES NOTED T/O THE NIGHT. PT SLEPT ALL NIGHT. OXYGEN SATURATION LEVELS REMAIN ABOVE 90 ON 3L NC. PT HAD AUDIBLE GURGLE DURING THE NIGHT, BUT CLEARED AROUND 0200 WHEN PT WAS READJUSTED. CALL LIGHT IN REACH, BED IN LOWEST POSTION, WILL CONTINUE TO MONITOR UNTIL DAYSHIFT NURSE ARRIVES.
[2019-10-15 05:07] LABS: Alanine Aminotransfer (ALT/SGP 27 U/L (12-78); Albumin, Blood 2.2 g/dL (3.4-5.0); Albumin/Globulin Ratio 0.6 (0.8-1.8); Alk Phos 52 U/L (50-136); Anion Gap 6 mmol/L (6-16); Aspartate Aminotrans (AST/SGOT 14 U/L (12-37); Bilirubin, Total 0.7 mg/dL (0.1-1.0); Blood Urea Nitrogen 27 mg/dL (8-24); CO2, Blood 33 mmol/L (21-32); Calcium, Blood 8.5 mg/dL (8.5-10.1); Chloride, Blood 97 mmol/L (98-108); Creatinine, Blood 1.42 mg/dL (0.40-1.00); Globulin, Blood 3.7 g/dL (2.2-4.0); Glomerular Filtration Rate 38 (60-); Glucose, Blood 169 mg/dL (70-99); Potassium, Blood 3.8 mmol/L (3.5-5.5); Sodium, Blood 136 mmol/L (136-145); Total Protein, Blood 5.9 g/dL (6.4-8.2); Troponin I 0.027 ng/mL (0.000-0.040)
[2019-10-15 05:08] LABS: Vancomycin, Random 10.3 ug/mL
--- NOTE | 2019-10-15 08:16 | NUR ---
pt laying in bed awake a/ox3, watching tv, pleasant and cooperative with care, follows commands well, denies pain at this time, state she slept ok, lungs are course with exp wheezing t/o, resp even and unlabored, no cough at this time, she reports a nonproductive cough, says she is using her flutter valve, on r/a, hrr, no edema noted, ppp+1, cap refill <3sec, vs stable, afebrile, iv site is clear and patent, infusing ns as ordered, btx4, abd flat soft nontender, voids without diff, skin c/w/d, maew, melissa, call light in reach.
--- NOTE | 2019-10-15 14:02 | NUR ---
ASSUMED CARE FROM NIMA RN. AGREE WITH AM SHIFT ASSESSMENT AND NO CHANGES AT THIS TIME. REINFORCED TEACHING OF USE OF FLUTTER VALVE. PATIENT AMBULATED UP IN THE [place]UR[place] WITH ASSISTANCE. DENIES NEEDS AT THIS TIME. RESTING IN BED NOW.
--- NOTE | 2019-10-15 16:56 | NUR ---
SHIFT SUMMARY PATIENT IS STILL REALLY CONGESTED AND COURSE SOUNDING. SHE SAID SHE IS UNABLE TO COUGH AND HAS NO SPUTUM PRODUCTION. REINFORCE TEACHING REGULARLY ON FLUTTER VALVE USE. BP LOWER THIS EVENING, 90'S SYSTOLIC. PAGED DR MUSE AND AWAITING RETURN CALL FOR PARAMETERS FOR ADMINISTRATION. NO OTHER ACUTE CHANGES THIS AFTERNOON.
--- NOTE | 2019-10-15 17:32 | NUR ---
NOTIFIED DR MUSE OF HR AND BP THIS EVENING AND ASKED FOR HOLDING PARAMETERS. NEW ORDERS FOR 300 CC BLUS, HOLD COREG TONIGHT AND PARAMETERS ADDED TO FUTURE COREG DOSES.
[2019-10-16 05:34] LABS: BASOPHILS ABSOLUTE AUTO 0.01 K/mm3 (0.00-0.23); BASOPHILS PERCENT AUTO 0 % (0-2); EOSINOPHILS PERCENT AUTO 0 % (0-6); Hematocrit 41.7 % (33.0-51.0); Hemoglobin 13.1 g/dL (11.5-16.0); IMMATURE GRAN ABSOLUTE AUTO 0.09 K/mm3 (0.00-0.10); IMMATURE GRAN PERCENT AUTO 1 % (0-1); LYMPHOCYTES ABSOLUTE AUTO 0.94 K/mm3 (0.84-5.20); LYMPHOCYTES PERCENT AUTO 9 % (21-46); MONOCYTES ABSOLUTE AUTO 0.57 K/mm3 (0.16-1.47); MONOCYTES PERCENT AUTO 6 % (4-13); Mean Corpuscular HGB 29.2 pg (26.0-34.0); Mean Corpuscular HGB Conc 31.4 g/dL (31.5-36.5); Mean Corpuscular Volume 93 fL (80-100); Mean Platelet Volume 10.9 fL (9.1-12.4); NEUTROPHILS ABSOLUTE AUTO 8.67 K/mm3 (1.96-9.15); NEUTROPHILS PERCENT AUTO 84 % (41-73); Platelet Count 226 K/mm3 (150-400); RDW Coefficient Variation 14.9 % (11.7-14.2); Red Blood Cell Count 4.49 M/mm3 (3.80-5.20); White Blood Cell Count 10.28 K/mm3 (4.00-11.30)
[2019-10-16 05:59] LABS: Albumin, Blood 2.2 g/dL (3.4-5.0); Anion Gap 6 mmol/L (6-16); Blood Urea Nitrogen 31 mg/dL (8-24); Bun/Creatinine Ratio 23.5 (12.0-20.0); CO2, Blood 30 mmol/L (21-32); Calcium, Blood 8.1 mg/dL (8.5-10.1); Chloride, Blood 102 mmol/L (98-108); Creatinine, Blood 1.32 mg/dL (0.40-1.00); Glomerular Filtration Rate 41 (60-); Glucose, Blood 165 mg/dL (70-99); Phosphorus, Blood 2.7 mg/dL (2.5-4.9); Potassium, Blood 3.2 mmol/L (3.5-5.5); Sodium, Blood 138 mmol/L (136-145); Vancomycin, Random 13.7 ug/mL
--- NOTE | 2019-10-16 06:02 | NUR ---
SHIFT SUMMARY A/O, ABLE TO MAKE NEEDS KNOWN. COOPERATIVE WITH CARE. CALLS AND ANSWERS QUESTIONS APPROPRIATELY. C/O PAIN/DISCOMFORT TO LOWER BACK; MEDICATED PER EMAR. 1P ASSIST /c FWW; SLOW STEADY GAIT. PLACED MEPILEX TO BUTTOCK SKIN BREAKDOWN IS ACCURING. SUGGESTED TO REPOSITION OFTEN WHILE IN BED AND SITTING. APPEARED TO REST MUCH OF SHIFT. NO ACUTE CHANGES NOTED OVERNIGHT. VSS/AFEBRILE. SPO2 >95% ON RA. BED IN LOWEST POSITION. CALL LIGHT AND BELONGINGS WITHIN REACH. WCTM. REPORT TO ONCOMING RN.
--- NOTE | 2019-10-16 18:19 | NUR ---
SHIFT SUMMARY NO ACUTE CHANGES TODAY. PATIENT WALKED ONLY 1 TIME TODAY. SHE WAS ABLE TO HAVE SOME SPUTUM PRODUCTION. HAD A SHOWER TODAY. VSS, NO COMPLAINTS TODAY
[2019-10-17 05:05] LABS: BASOPHILS ABSOLUTE AUTO 0.02 K/mm3 (0.00-0.23); BASOPHILS PERCENT AUTO 0 % (0-2); EOSINOPHILS PERCENT AUTO 0 % (0-6); Hematocrit 41.8 % (33.0-51.0); Hemoglobin 13.3 g/dL (11.5-16.0); IMMATURE GRAN ABSOLUTE AUTO 0.08 K/mm3 (0.00-0.10); IMMATURE GRAN PERCENT AUTO 1 % (0-1); LYMPHOCYTES ABSOLUTE AUTO 0.93 K/mm3 (0.84-5.20); LYMPHOCYTES PERCENT AUTO 12 % (21-46); MONOCYTES ABSOLUTE AUTO 0.76 K/mm3 (0.16-1.47); MONOCYTES PERCENT AUTO 10 % (4-13); Mean Corpuscular HGB 29.4 pg (26.0-34.0); Mean Corpuscular HGB Conc 31.8 g/dL (31.5-36.5); Mean Corpuscular Volume 92 fL (80-100); Mean Platelet Volume 10.7 fL (9.1-12.4); NEUTROPHILS PERCENT AUTO 77 % (41-73); Platelet Count 200 K/mm3 (150-400); RDW Coefficient Variation 15.1 % (11.7-14.2); Red Blood Cell Count 4.53 M/mm3 (3.80-5.20); White Blood Cell Count 7.79 K/mm3 (4.00-11.30)
--- NOTE | 2019-10-17 05:08 | NUR ---
0510 REPLACED MEPILEX TO COCCYX/BUTTOCKS; SKIN REMAINS THE SAME PREVIOUS ASSESSMENT. CONTINUE TO MONITOR FOR FURTHER SKIN BREAKDOWN
[2019-10-17 05:29] LABS: Albumin, Blood 2.2 g/dL (3.4-5.0); Anion Gap 9 mmol/L (6-16); Blood Urea Nitrogen 27 mg/dL (8-24); Bun/Creatinine Ratio 24.3 (12.0-20.0); CO2, Blood 24 mmol/L (21-32); Calcium, Blood 8.1 mg/dL (8.5-10.1); Chloride, Blood 106 mmol/L (98-108); Creatinine, Blood 1.11 mg/dL (0.40-1.00); Glomerular Filtration Rate 50 (60-); Glucose, Blood 131 mg/dL (70-99); Magnesium, Blood 2.1 mg/dL (1.6-2.4); Phosphorus, Blood 2.3 mg/dL (2.5-4.9); Potassium, Blood 3.3 mmol/L (3.5-5.5); Sodium, Blood 139 mmol/L (136-145); Vancomycin, Random 16.2 ug/mL
--- NOTE | 2019-10-17 06:04 | NUR ---
SHIFT SUMMARY A/O, ABLE TO MAKE NEEDS KNOWN. COOPERATIVE WITH CARE. CALLS AND ANSWERS QUESTIONS APPROPRIATELY. C/O PAIN/DISCOMFORT TO BACK AND R LEG WHICH IS CHRONIC; MEDICATED PER EMAR. NO ACUTE CHANGES NOTED OVERNIGHT. VSS/AFEBRILE. BED IN LOWEST POSITION. CALL LIGHT AND BELONGINGS WITHIN REACH. WCTM. REPORT TO ONCOMING RN.
--- NOTE | 2019-10-17 14:09 | NUR ---
Patient gave student nurse permission to provide care on 10/18/19.
--- NOTE | 2019-10-17 17:41 | NUR ---
SHIFT SUMMARY PT UP IN CHAIR MOST THE SHIFT. AMBULATING WELL TO BATHROOM & IN HALLWAY WITH SBA. PT ENCOURAGED TO USE FLUTTER VALVE. NO OTHER CHANGES IN ASSESSMENT AT THIS TIME. VSS. WILL CONTINUE TO MONITOR UNTIL TURNOVER IS COMPLETE.
--- NOTE | 2019-10-18 06:09 | NUR ---
SHIFT SUMMARY AOX4. VSS. DENIES N/V OR DYPNEA @REST. REPORTS CHRONIC PAIN IN R LEG/LOWER BACK & MEDICATED 2X W/OXYCODONE. SPO2 >90% ON RA, E/U RESPIRATIONS, BREATH SOUNDS COURSE T/O LOBES, REPORTS NOT COUGHING UP MUCH SPUTUM @THIS TIME. SBY ASSIST W/TRANSFERS IN ROOM. CALL LIGHT IN REACH. WCTM.
[2019-10-18 13:12] LABS: BASOPHILS ABSOLUTE AUTO 0.01 K/mm3 (0.00-0.23); BASOPHILS PERCENT AUTO 0 % (0-2); EOSINOPHILS ABSOLUTE AUTO 0.04 K/mm3 (0.00-0.68); EOSINOPHILS PERCENT AUTO 0 % (0-6); Hematocrit 42.4 % (33.0-51.0); Hemoglobin 13.3 g/dL (11.5-16.0); IMMATURE GRAN ABSOLUTE AUTO 0.09 K/mm3 (0.00-0.10); IMMATURE GRAN PERCENT AUTO 1 % (0-1); LYMPHOCYTES ABSOLUTE AUTO 0.99 K/mm3 (0.84-5.20); LYMPHOCYTES PERCENT AUTO 10 % (21-46); MONOCYTES ABSOLUTE AUTO 0.57 K/mm3 (0.16-1.47); MONOCYTES PERCENT AUTO 6 % (4-13); Mean Corpuscular HGB 29.2 pg (26.0-34.0); Mean Corpuscular HGB Conc 31.4 g/dL (31.5-36.5); Mean Corpuscular Volume 93 fL (80-100); Mean Platelet Volume 10.3 fL (9.1-12.4); NEUTROPHILS ABSOLUTE AUTO 8.54 K/mm3 (1.96-9.15); NEUTROPHILS PERCENT AUTO 83 % (41-73); Platelet Count 239 K/mm3 (150-400); RDW Coefficient Variation 15.3 % (11.7-14.2); RDW Standard Deviation 51.9 fL (35.1-46.3); Red Blood Cell Count 4.55 M/mm3 (3.80-5.20); White Blood Cell Count 10.24 K/mm3 (4.00-11.30)
[2019-10-18 13:27] LABS: Albumin, Blood 2.4 g/dL (3.4-5.0); Albumin/Globulin Ratio 0.6 (0.8-1.8); Bilirubin, Total 0.6 mg/dL (0.1-1.0); Bun/Creatinine Ratio 18.8 (12.0-20.0); Calcium, Blood 7.9 mg/dL (8.5-10.1); Creatinine, Blood 1.01 mg/dL (0.40-1.00); Globulin, Blood 3.8 g/dL (2.2-4.0); Potassium, Blood 3.2 mmol/L (3.5-5.5); Total Protein, Blood 6.2 g/dL (6.4-8.2)
--- NOTE | 2019-10-19 05:03 | NUR ---
SHIFT SUMMARY ADMITTED FOR NOSOCOMIAL PNEUMONIA. DNI CODE (CPR AND MEDS OK). 1800 ML FLUID RESTRICTION. REGULAR DIET, A&O X4, STANDBY/MINIMAL ASSIST TO BATHROOM W/FWW, RA[facility]. [facility] FOR [facility], LIVES W/. HOPEFUL TO DC TODAY W/HH. SHE STATES SHE FEELS MUCH IMPROVED FROM ADMIT. TELEMETRY IS MONITORING: AFIB @ 85 BPM. HX: RT SHOULDER REPLACEMENT, COPD, AFIB, RIGHT BREAST CA. IV ANTIBIOTICS ARE SCHEDULED.
[2019-10-19 08:44] LABS: Vancomycin, Trough 9.7 ug/mL (5.0-10.0)
--- NOTE | 2019-10-19 09:38 | NUR ---
PERMISSION PATIENT GAVE PERMISSION OF CARE ON 10/18/2019
[2019-10-19] MEDS ORDERED: Prednisone10 MG PO (13:25)
[2019-10-19] MEDS ORDERED: Prednisone5 MG PO (13:26)
[2019-10-19] MEDS ORDERED: Vsl#3 Capsule1 EACH PO (13:27)
[2019-10-19] MEDS ORDERED: LEVOFLOXACIN250 MG PO (13:27)
[2019-10-19] MEDS ORDERED: GUAI600T33 PO (13:27)
[2019-10-19] MEDS ORDERED: SENN187 PO (13:31)
[2019-10-19 14:21] LABS: BASOPHILS ABSOLUTE AUTO 0.03 K/mm3 (0.00-0.23); BASOPHILS PERCENT AUTO 0 % (0-2); EOSINOPHILS ABSOLUTE AUTO 0.02 K/mm3 (0.00-0.68); EOSINOPHILS PERCENT AUTO 0 % (0-6); Hematocrit 42.7 % (33.0-51.0); Hemoglobin 13.7 g/dL (11.5-16.0); IMMATURE GRAN ABSOLUTE AUTO 0.16 K/mm3 (0.00-0.10); IMMATURE GRAN PERCENT AUTO 2 % (0-1); LYMPHOCYTES ABSOLUTE AUTO 1.05 K/mm3 (0.84-5.20); LYMPHOCYTES PERCENT AUTO 11 % (21-46); MONOCYTES ABSOLUTE AUTO 0.33 K/mm3 (0.16-1.47); MONOCYTES PERCENT AUTO 4 % (4-13); Mean Corpuscular HGB 29.5 pg (26.0-34.0); Mean Corpuscular HGB Conc 32.1 g/dL (31.5-36.5); Mean Corpuscular Volume 92 fL (80-100); Mean Platelet Volume 10.4 fL (9.1-12.4); NEUTROPHILS ABSOLUTE AUTO 7.78 K/mm3 (1.96-9.15); NEUTROPHILS PERCENT AUTO 83 % (41-73); Platelet Count 228 K/mm3 (150-400); RDW Coefficient Variation 15.5 % (11.7-14.2); RDW Standard Deviation 52.2 fL (35.1-46.3); Red Blood Cell Count 4.64 M/mm3 (3.80-5.20); White Blood Cell Count 9.37 K/mm3 (4.00-11.30)
[2019-10-19 14:38] LABS: Bun/Creatinine Ratio 16.9 (12.0-20.0); Creatinine, Blood 1.3 mg/dL (0.40-1.00); Phosphorus, Blood 3.5 mg/dL (2.5-4.9); Potassium, Blood 2.9 mmol/L (3.5-5.5)
--- NOTE | 2019-10-19 16:04 | NUR ---
PT DISCHARGED FROM THE UNIT AT 1600. IV REMOVED, MEDICATIONS FAXED TO [facility] IN . DISCHARGE INSTRUCTION REVIEWED. HOME MEDICATIONS REVIEWED. NO QUESTIONS AT THIS TIME. WAITING WITH CAR TO TRANSPORT HOME.
== END 2019-10-19 15:53 | disposition home or self-care (01) | DRG 193 ==
LOC: ER 12:44 → MEDS 15:52
PROVIDERS: Internal Medicine; Pharmacist; Physician Assistant; ADMIT Internal Medicine Gastroenterology
DX: J18.9 Pneumonia, unspecified organism (principal); I50.33 Acute on chronic diastolic (congestive) heart failure; J44.0 Chronic obstructive pulmonary disease with (acute) lower respiratory infection; J44.1 Chronic obstructive pulmonary disease with (acute) exacerbation; I13.0 Hypertensive heart and chronic kidney disease with heart failure and stage 1 through stage 4 chronic kidney disease, or unspecified chronic kidney disease; E87.3 Alkalosis; Z99.81 Dependence on supplemental oxygen; Z96.619 Presence of unspecified artificial shoulder joint; Z87.891 Personal history of nicotine dependence; N18.3 Chronic kidney disease, stage 3 (moderate); I12.9 Hypertensive chronic kidney disease with stage 1 through stage 4 chronic kidney disease, or unspecified chronic kidney disease; M53.3 Sacrococcygeal disorders, not elsewhere classified; Z85.3 Personal history of malignant neoplasm of breast; I48.0 Paroxysmal atrial fibrillation; E03.9 Hypothyroidism, unspecified; N39.41 Urge incontinence; E78.5 Hyperlipidemia, unspecified; E83.39 Other disorders of phosphorus metabolism
CPT/HCPCS: 0099U; 36415; 36600; 71046; 80048; 80053; 80069; 80202; 82803; 83605; 83735; 83880; 84100; 84145; 84484; 85025; 87040; 93005; 93010; 93306; 94640; 94667; 94668; 94760; 96365; 96375; 97110; 97116; 97162; 97165; 97530; 99285-25; J0696; J1956; J2543; J2930; J3370; J7030; J7512

== ENCOUNTER → 2019-11-16 | Outpatient (CLI) | payer MEDICARE ==
[~2019-11-16] MED LIST changes: +LEVOFLOXACIN250 MG PO; +ONDA4ODT SL; +Prednisone10 MG PO; +Prednisone5 MG PO; +SENN187 PO; +Tessalon200 MG PO; +Vsl#3 Capsule1 EACH PO
[2019-11-16 09:03] LABS: BASOPHILS ABSOLUTE AUTO 0.03 K/mm3 (0.00-0.23); BASOPHILS PERCENT AUTO 0 % (0-2); EOSINOPHILS ABSOLUTE AUTO 0.02 K/mm3 (0.00-0.68); EOSINOPHILS PERCENT AUTO 0 % (0-6); Hematocrit 44.7 % (33.0-51.0); Hemoglobin 14.4 g/dL (11.5-16.0); IMMATURE GRAN ABSOLUTE AUTO 0.18 K/mm3 (0.00-0.10); IMMATURE GRAN PERCENT AUTO 2 % (0-1); LYMPHOCYTES ABSOLUTE AUTO 1.25 K/mm3 (0.84-5.20); LYMPHOCYTES PERCENT AUTO 12 % (21-46); MONOCYTES ABSOLUTE AUTO 0.59 K/mm3 (0.16-1.47); MONOCYTES PERCENT AUTO 6 % (4-13); Mean Corpuscular HGB 30.3 pg (26.0-34.0); Mean Corpuscular HGB Conc 32.2 g/dL (31.5-36.5); Mean Corpuscular Volume 94 fL (80-100); Mean Platelet Volume 10.3 fL (9.1-12.4); NEUTROPHILS ABSOLUTE AUTO 8.75 K/mm3 (1.96-9.15); NEUTROPHILS PERCENT AUTO 81 % (41-73); Platelet Count 222 K/mm3 (150-400); RDW Coefficient Variation 17.3 % (11.7-14.2); RDW Standard Deviation 59.6 fL (35.1-46.3); Red Blood Cell Count 4.76 M/mm3 (3.80-5.20); White Blood Cell Count 10.82 K/mm3 (4.00-11.30)
[2019-11-16 09:08] LABS: Bun/Creatinine Ratio 15.5 (12.0-20.0); Calcium, Blood 8.8 mg/dL (8.5-10.1); Creatinine, Blood 1.42 mg/dL (0.40-1.00)
== END ==
LOC: LAB SHORT 08:53 → LAB EV 08:53
PROVIDERS: Physician Assistant Surgical
DX: R05 Cough (principal)
CPT/HCPCS: 80048; 83880; 85025

== ENCOUNTER 2019-11-19 13:34 | Inpatient (IN) | payer MEDICARE ==
[~2019-11-19] VITALS: Ht 167.6 cm; Wt 65.0 kg
[2019-11-19 13:58] LABS: BASOPHILS ABSOLUTE AUTO 0.04 K/mm3 (0.00-0.23); BASOPHILS PERCENT AUTO 0 % (0-2); EOSINOPHILS PERCENT AUTO 0 % (0-6); Hematocrit 41.8 % (33.0-51.0); Hemoglobin 13.6 g/dL (11.5-16.0); IMMATURE GRAN ABSOLUTE AUTO 0.08 K/mm3 (0.00-0.10); IMMATURE GRAN PERCENT AUTO 1 % (0-1); LYMPHOCYTES ABSOLUTE AUTO 1.42 K/mm3 (0.84-5.20); LYMPHOCYTES PERCENT AUTO 11 % (21-46); MONOCYTES ABSOLUTE AUTO 0.86 K/mm3 (0.16-1.47); MONOCYTES PERCENT AUTO 6 % (4-13); Mean Corpuscular HGB 30.4 pg (26.0-34.0); Mean Corpuscular HGB Conc 32.5 g/dL (31.5-36.5); Mean Corpuscular Volume 93 fL (80-100); Mean Platelet Volume 10.1 fL (9.1-12.4); NEUTROPHILS ABSOLUTE AUTO 11.17 K/mm3 (1.96-9.15); NEUTROPHILS PERCENT AUTO 82 % (41-73); Platelet Count 193 K/mm3 (150-400); RDW Coefficient Variation 17.2 % (11.7-14.2); RDW Standard Deviation 58.7 fL (35.1-46.3); Red Blood Cell Count 4.48 M/mm3 (3.80-5.20); White Blood Cell Count 13.57 K/mm3 (4.00-11.30)
[2019-11-19 14:24] LABS: Albumin, Blood 2.8 g/dL (3.4-5.0); Albumin/Globulin Ratio 0.7 (0.8-1.8); Bilirubin, Total 2.5 mg/dL (0.1-1.0); Bun/Creatinine Ratio 16.1 (12.0-20.0); Calcium, Blood 8.5 mg/dL (8.5-10.1); Creatinine, Blood 1.12 mg/dL (0.40-1.00); Globulin, Blood 3.8 g/dL (2.2-4.0); Potassium, Blood 4.4 mmol/L (3.5-5.5); Total Protein, Blood 6.6 g/dL (6.4-8.2)
[2019-11-19] MEDS ORDERED: FUROSEMIDE40 MG PO (15:22)
[2019-11-19] MEDS ORDERED: Nitrofurantoin50 MG PO (15:23)
[2019-11-19 16:03] LABS: Adenovirus Not Detected (NOT DETECT); Bordetella pertussis Not Detected (NOT DETECT); Chlamydophila pneumoniae Not Detected (NOT DETECT); Coronavirus 229E Not Detected (NOT DETECT); Coronavirus HKU1 Not Detected (NOT DETECT); Coronavirus NL63 Not Detected (NOT DETECT); Coronavirus OC43 Not Detected (NOT DETECT); Human Metapneumovirus Not Detected (NOT DETECT); Human Rhinovirus/Enterovirus Not Detected (NOT DETECT); Influenza A/2009-H1 Not Detected (NOT DETECT); Influenza A/H1 Not Detected (NOT DETECT); Influenza A/H3 Not Detected (NOT DETECT); Influenza B Not Detected (NOT DETECT); Mycoplasma pneumoniae Not Detected (NOT DETECT); Parainfluenza Virus 1 Not Detected (NOT DETECT); Parainfluenza Virus 2 Not Detected (NOT DETECT); Parainfluenza Virus 3 Not Detected (NOT DETECT); Parainfluenza Virus 4 Not Detected (NOT DETECT); Respiratory Syncytial Virus Not Detected (NOT DETECT)
[2019-11-19] MEDS ORDERED: TORSE20 PO (17:42)
--- NOTE | 2019-11-19 17:48 | NUR ---
ADMIT PT ARRIVED TO ICU 3 AT 1630. PT ALERT AND ORIENTED, VERY WET SOUNDING BREATH SOUNDS FROM AFAR. PT COUGHED UP SMALL AMT OF THICK, ROMEO SPUTUM. GAVE PT SPECIMEN CUP TO COLLECT SPUTUM SAMPLE. PT SINUS TACH WITH RATE IN THE 110S, SPO2 MID 90S ON 2L/NC. PT GOT UP WITH 1 PERSON ASSIST TO BEDSIDE COMMODE. PT CALLED HER ON THE ROOM PHONE AND UPDATED HIM. DR. CLINE AT THE BEDSIDE EVALUATING PT. CONTINUING TO MONITOR.
--- NOTE | 2019-11-19 19:27 | NUR ---
DR. CLINE CALLED AND GAVE ORDERS TO DC MACROLIDE DUE TO CREATININE CLEARANCE, SEE ORDERS.
--- NOTE | 2019-11-19 22:39 | NUR ---
ASSUMPTION OF CARE ASSUMED CARE OF PT @ 1900, PT RESTING IN BED, AROUSES TO VERBAL STIMULI, ORIENTED TO SELF, PLACE, AND FOLLOWING DIRECTIONS. MAINTAINING O2 SATURATIONS>90% ON RA, MONITOR SHOWS SINUS TACH WITH HR 100-115. PT DENIES CP OR SOB. PT TOLERATING PO INTAKE, SWALLOWS PILLS WHOLE, DENIES ANY GI/ ISSUES, STS IS USING BSC. CALL LIGHT WITHIN REACH.
[2019-11-20 03:53] LABS: BASOPHILS ABSOLUTE AUTO 0.03 K/mm3 (0.00-0.23); BASOPHILS PERCENT AUTO 0 % (0-2); EOSINOPHILS ABSOLUTE AUTO 0.02 K/mm3 (0.00-0.68); EOSINOPHILS PERCENT AUTO 0 % (0-6); IMMATURE GRAN ABSOLUTE AUTO 0.07 K/mm3 (0.00-0.10); IMMATURE GRAN PERCENT AUTO 1 % (0-1); LYMPHOCYTES ABSOLUTE AUTO 1.61 K/mm3 (0.84-5.20); LYMPHOCYTES PERCENT AUTO 14 % (21-46); MONOCYTES ABSOLUTE AUTO 0.85 K/mm3 (0.16-1.47); MONOCYTES PERCENT AUTO 7 % (4-13); Mean Corpuscular HGB 30.8 pg (26.0-34.0); NEUTROPHILS ABSOLUTE AUTO 8.97 K/mm3 (1.96-9.15); NEUTROPHILS PERCENT AUTO 78 % (41-73); RDW Coefficient Variation 17.5 % (11.7-14.2); RDW Standard Deviation 64.4 fL (35.1-46.3); Red Blood Cell Count 4.22 M/mm3 (3.80-5.20); White Blood Cell Count 11.55 K/mm3 (4.00-11.30)
[2019-11-20 03:55] LABS: Mean Corpuscular Volume 100 fL (80-100); Mean Platelet Volume 9.9 fL (9.1-12.4); Platelet Count 140 K/mm3 (150-400)
[2019-11-20 04:11] LABS: Bun/Creatinine Ratio 14.7 (12.0-20.0); Calcium, Blood 8.4 mg/dL (8.5-10.1); Creatinine, Blood 1.09 mg/dL (0.40-1.00); Potassium, Blood 4.1 mmol/L (3.5-5.5)
--- NOTE | 2019-11-20 06:07 | NUR ---
SHIFT SUMMARY NOT ACUTE CHANGES THIS SHIFT. PT RESTED WELL T/O NIGHT, REPORTS SOME BACK PAIN UPON WAKING, STS IS NORMAL, PRN MEDICATION PROVIDED. PT PLACED ON 3L PER NC WHILE SLEEPING TO MAINTAIN O2 SATURATIONS>90%, VSS. PT DENIES CP, SOB OR NAUSEA, TOLERATES PO INTAKE AND SWALLOWS PILLS WHOLE. PT UP TO BSC THIS SHIFT WITH 1 PERSON ASSISTANCE. CALL LIGHT WITHIN REACH.
--- NOTE | 2019-11-20 08:30 | NUR ---
PT AWAKE, SITTING UP IN BED. DENIES SOB BUT HAS A RATTLE IN UPPPER AIRWAY BUT UNABLE TO COUGH OF SECRETIONS. ENCOURAGE TO GET OUT OF BED TO HELP WITH RESPIRATORY TOILET, PT REFUSES. WILL CONTINUE TO REPOSTION. CT CHEST IS ORDERED PENDING XRAY. PULMONARY CONSULT THIS MORNING. CONTINUE TO MONITOR AND TREAT PRN.
--- NOTE | 2019-11-20 09:30 | NUR ---
DR BOONE AT BEDSIDE. NEW ORDERS. WILL MAKE PT NPO STATUS EXCEPT ICE CHIPS AND MEDS OK WITH SIPS OF WATER. SPEECH EVAL ORDERED DUE TO ASPIRATION PNEUMONIA.
--- NOTE | 2019-11-20 18:35 | NUR ---
SHIFT SUMMARY PT RESPIRATORY STATUS SLIGHTLY IMPROVED. REMAINS ON ROOM AIR WITH SATS >90%. STARTED PULMONARY TOILET, TOLERATES WELL. PT NPO STATUS UNTIL SWALLOW EVAL DUE TO ASPIRATION PNEUMONIA. OK TO GIVE MEDS WITH WATER. PT/OT CONSULT ORDERED TO INCREASE ACTIVITY. REPOSITIONED IN BED; TOLERATED WELL. PALLATIVE CARE CONSULT ORDERED. VSS T/O SHIFT.
--- NOTE | 2019-11-20 22:00 | NUR ---
ASSUMPTION OF CARE ASSUMED CARE OF PT @ 1900, PT AWAKE IN BED, A&0x4, DENIES PAIN OR SOB AT THIS TIME. PT MAINTAINING O2 SATURATIONS>90% ON RA, PLACED ON 2L PER NC WHILE SLEEPING. MONITOR SHOWS AFIB WITH HR 100-110, PT HYPOTENSIVE, 82/60 WITH MANUAL BP. PT DENIES DIZZINESS, NAUSEA OR FATIGUE, STS HYPOTENSION IS COMMON FOR HER. PT DENIES ANY GI/ ISSUES. CALL LIGHT WITHIN REACH.
[2019-11-21 04:12] LABS: BASOPHILS ABSOLUTE AUTO 0.01 K/mm3 (0.00-0.23); BASOPHILS PERCENT AUTO 0 % (0-2); EOSINOPHILS ABSOLUTE AUTO 0.01 K/mm3 (0.00-0.68); EOSINOPHILS PERCENT AUTO 0 % (0-6); Hemoglobin 11.5 g/dL (11.5-16.0); IMMATURE GRAN ABSOLUTE AUTO 0.08 K/mm3 (0.00-0.10); IMMATURE GRAN PERCENT AUTO 1 % (0-1); LYMPHOCYTES PERCENT AUTO 11 % (21-46); MONOCYTES ABSOLUTE AUTO 0.51 K/mm3 (0.16-1.47); MONOCYTES PERCENT AUTO 6 % (4-13); Mean Corpuscular HGB 30.2 pg (26.0-34.0); Mean Corpuscular HGB Conc 31.9 g/dL (31.5-36.5); Mean Corpuscular Volume 95 fL (80-100); Mean Platelet Volume 10.2 fL (9.1-12.4); NEUTROPHILS ABSOLUTE AUTO 6.88 K/mm3 (1.96-9.15); NEUTROPHILS PERCENT AUTO 82 % (41-73); Platelet Count 171 K/mm3 (150-400); RDW Coefficient Variation 17.5 % (11.7-14.2); RDW Standard Deviation 61.1 fL (35.1-46.3); Red Blood Cell Count 3.81 M/mm3 (3.80-5.20); White Blood Cell Count 8.39 K/mm3 (4.00-11.30)
[2019-11-21 04:30] LABS: Calcium, Blood 8.1 mg/dL (8.5-10.1); Creatinine, Blood 1.07 mg/dL (0.40-1.00)
--- NOTE | 2019-11-21 06:23 | NUR ---
SHIFT SUMMARY PT SLEPT WELL T/O NIGHT, AROUSES TO VERBAL STIMULI, REMAINS ORIENTED. PT PLACED ON 3L PER NC WHILE SLEEPING, MAINTAINS O2 SATURATIONS ON RA WHILE AWAKE. MONITOR SHOWS AFIB WITH HR 90'S-105, HYPOTENSION NOTED AT BEGINNING OF SHIFT, ASYMPTOMATIC (SEE PREVIOUS NOTE), RESOLVED. PT WITH SOME STRESS INCONTINENCE WHILE COUGHING, OTHERWISE CONTINENT. PT DENIES GI ISSUES. PT TOLERATES SMALL SIPS OF WATER WITH PO MEDICATIONS. PLAN FOR SWALLOW EVAL TODAY.
--- NOTE | 2019-11-21 08:45 | NUR ---
ASSESSMENT- PT AWAKE, ALERT, COOPERATIVE. DENIES ANY PAIN OR SOB. LUNGS WITH LOUD RHONCHI T/O. USING PEP VALVE BY SELF. ABLE TO DECREASE OXYGEN TO 1 L/MIN NASAL CANNULA. ASPIRATION PRECAUTIONS, STATES UNDERSTANDING. COREG HELD-SBP 90'S AND HYPOTENSIVE LAST PM. PIV INTACT WITH NS INFUSING
--- NOTE | 2019-11-21 11:43 | NUR ---
UP TO CHAIR WITH THERAPIST, TOLERATED FAIR. STATES HAS CHRONIC BACK DISCOMFORT AND DIFFICULT TO SIT FOR PERIODS OF TIME. CONGESTED COUGH. LUNGS COARSE T/O.AWAITING SPEECH EVAL
--- NOTE | 2019-11-21 17:50 | NUR ---
DR. GILL HERE-UPDATED WITH VITAL SIGNS, PT STATUS. SEE ORDERS, COREG HELD EARLIER. REPORT CALLED TO DIPIKA ADAM. PT READIED FOR TRANSFER. ABLE TO TRANSFER TO WHEELCHAIR.
--- NOTE | 2019-11-21 18:13 | NUR ---
ARRIVAL TO UNIT PT TRANSFERED AND AGREEABLE TO SIT UP IN CHAIR. DENIES NEEDS, EXCEPT FOR BEING HUNGRY.
--- NOTE | 2019-11-22 03:49 | NUR ---
SHIFT SUMMARY PT A/OX4 WITH VSS. LUNG SOUNDS COARSE W/RHONCHI T/O AND A PRODUCTIVE COUGH. ENCOURAGED FREQUENT FLUTTER VALVE/I.S. USE AND PO FLUID INTAKE. PT IS ABLE TO USE IND. R/T IN TO SEE PT T/O SHIFT. PT APPEARS TO HAVE SLEPT WELL. REPOSITIONED OFTEN DURING NIGHT. ABX AND IVF INFUSING PER ORDERS. ON 1L NC. IS CURRENTLY RESTING IN BED W/CALL LIGHT IN REACH. WILL CONT TO MONITOR AND GIVE REPORT TO ONCOMING RN.
[2019-11-22 04:37] LABS: BASOPHILS ABSOLUTE AUTO 0.03 K/mm3 (0.00-0.23); BASOPHILS PERCENT AUTO 0 % (0-2); EOSINOPHILS ABSOLUTE AUTO 0.02 K/mm3 (0.00-0.68); EOSINOPHILS PERCENT AUTO 0 % (0-6); Hematocrit 38.8 % (33.0-51.0); Hemoglobin 12.3 g/dL (11.5-16.0); IMMATURE GRAN ABSOLUTE AUTO 0.16 K/mm3 (0.00-0.10); IMMATURE GRAN PERCENT AUTO 1 % (0-1); LYMPHOCYTES ABSOLUTE AUTO 1.19 K/mm3 (0.84-5.20); LYMPHOCYTES PERCENT AUTO 11 % (21-46); MONOCYTES ABSOLUTE AUTO 0.89 K/mm3 (0.16-1.47); MONOCYTES PERCENT AUTO 8 % (4-13); Mean Corpuscular HGB 30.3 pg (26.0-34.0); Mean Corpuscular HGB Conc 31.7 g/dL (31.5-36.5); Mean Corpuscular Volume 96 fL (80-100); NEUTROPHILS ABSOLUTE AUTO 8.92 K/mm3 (1.96-9.15); NEUTROPHILS PERCENT AUTO 80 % (41-73); Platelet Count 219 K/mm3 (150-400); RDW Coefficient Variation 17.4 % (11.7-14.2); RDW Standard Deviation 61.3 fL (35.1-46.3); Red Blood Cell Count 4.06 M/mm3 (3.80-5.20); White Blood Cell Count 11.21 K/mm3 (4.00-11.30)
[2019-11-22 05:04] LABS: Albumin, Blood 2.1 g/dL (3.4-5.0); Albumin/Globulin Ratio 0.6 (0.8-1.8); Bilirubin, Total 0.8 mg/dL (0.1-1.0); Bun/Creatinine Ratio 17.7 (12.0-20.0); Calcium, Blood 8.4 mg/dL (8.5-10.1); Creatinine, Blood 1.13 mg/dL (0.40-1.00); Globulin, Blood 3.8 g/dL (2.2-4.0); Potassium, Blood 4.1 mmol/L (3.5-5.5); Total Protein, Blood 5.9 g/dL (6.4-8.2)
--- NOTE | 2019-11-22 07:20 | NUR ---
RECVD BEDSIDE REPORT FROM PREVIOUS RN KEVIN, PT AWAKE SITTING UP IN BED, A/O X 4, PLEASANT/COOPERATIVE. PT DENIES PAIN. LUNGS CONGESTED/COURSE, DENIES SOB. RT IN ROOM PROVIDING BREATHING TX
--- NOTE | 2019-11-22 13:30 | NUR ---
speech therapy in with pt
--- NOTE | 2019-11-22 17:56 | NUR ---
SHIFT SUMMRY: VSS, NO ACUTE CHANGES, PT REMAINED A/O X 4, PLEASANT/COOPERATIVE. PT'S FAMILY VISITS THIS SHIFT X 1. PRODUCTIVE COUGH OF CLEAR SPUTUM. LUNGS REMAIN COURSE, SPO2 >90% ON RA, DENIES SOB. PT TOLERATES PO INTAKE, VOIDING WITH STRESS INCONTINENCE. PT WITH CHRONIC BACK/KNEE PAIN, MEDICATED PER NOV, STATES "IT HELPED". SPEECH THERAPY EVALUATED PT TODAY, RECOMMENDED MECHANICAL SOFT, SITTING UP AT 90 DEGREES TO EAT, PILLS WITH APPLESAUCE/PUDDING. WHEN OFFERING PT APPLESAUCE WITH PILLS, PT DENIES NEED FOR THIS. PT EDUCATED ON ASPIRATION PRECAUTIONS, DISEASE PROCESS. PT DISAGREES WITH EVAL AND RECOMMENDED PRECAUTIONS, BUT STATES "WHATEVER".
[2019-11-23 04:30] LABS: BASOPHILS ABSOLUTE AUTO 0.01 K/mm3 (0.00-0.23); BASOPHILS PERCENT AUTO 0 % (0-2); EOSINOPHILS ABSOLUTE AUTO 0.01 K/mm3 (0.00-0.68); EOSINOPHILS PERCENT AUTO 0 % (0-6); Hematocrit 36.2 % (33.0-51.0); Hemoglobin 11.4 g/dL (11.5-16.0); IMMATURE GRAN ABSOLUTE AUTO 0.18 K/mm3 (0.00-0.10); IMMATURE GRAN PERCENT AUTO 2 % (0-1); LYMPHOCYTES ABSOLUTE AUTO 0.92 K/mm3 (0.84-5.20); LYMPHOCYTES PERCENT AUTO 12 % (21-46); MONOCYTES ABSOLUTE AUTO 0.57 K/mm3 (0.16-1.47); MONOCYTES PERCENT AUTO 8 % (4-13); Mean Corpuscular HGB 30.2 pg (26.0-34.0); Mean Corpuscular HGB Conc 31.5 g/dL (31.5-36.5); Mean Corpuscular Volume 96 fL (80-100); Mean Platelet Volume 9.8 fL (9.1-12.4); NEUTROPHILS ABSOLUTE AUTO 5.92 K/mm3 (1.96-9.15); NEUTROPHILS PERCENT AUTO 78 % (41-73); Platelet Count 206 K/mm3 (150-400); RDW Coefficient Variation 17.2 % (11.7-14.2); RDW Standard Deviation 61.7 fL (35.1-46.3); Red Blood Cell Count 3.78 M/mm3 (3.80-5.20); White Blood Cell Count 7.61 K/mm3 (4.00-11.30)
--- NOTE | 2019-11-23 05:41 | NUR ---
SHIFT SUMMARY PT REPORTS TO "FEELING MUCH BETTER COMPARED TO LAST NIGHT." HAS DECREASED CONGESTION AND IS COUGHING LESS. SPO2 ABOVE 93% ON RA, DENIES SOB OR DYSPNEA. SHE IS HOPEFUL TO BE GOING HOME TODAY. IS CURRENTLY RESTING IN BED WITH CALL LIGHT IN REACH. WILL CONT TO MONITOR AND GIVE REPORT TO ONCOMING RN.
[2019-11-23] MEDS ORDERED: METO25ER PO (11:41)
[2019-11-23] MEDS ORDERED: PRED10 PO (11:44)
[2019-11-23] MEDS ORDERED: Florastor250 MG PO (11:44)
[2019-11-23] MEDS ORDERED: AMOCLA875 PO (11:45)
--- NOTE | 2019-11-23 14:31 | NUR ---
DISCHARGE SUMMARY PT A&OX4, VSS, LEFT FLOOR VIA WC WITH ERECTING ENGINEER TO GO HOME WITH , WITH ALL PERSONAL POSSESSIONS INCLUDING DC PACKET. SCRIPTS FAXED TO [facility]. DC INSTRUCTIONS PROVIDED. PT REP UNDERSTANDING THOSE INSTRUCTIONS INCLUDING DYSPHAGIA PRECAUTIONS: MEDS ONE AT A TIME WITH APPLESAUCE, 90 DEGREES WITH ALL ORAL INTAKE, THIN LIQUIDS SLOW W/O STRAW, SIT UP FOR 30-60 MINS AFTER EACH ORAL INTAKE, USE I.S./FLUTTER/TCDB AT HOME, FOLLOW UP WITH PCP ONE WEEK. PT REP FU APPT SCHEDULED ALREADY WITH PCP. IV DC'D.
== END 2019-11-23 13:44 | disposition home or self-care (01) | DRG 178 ==
LOC: ER 13:34 → PCU 15:26 → ICUE 15:26 → SURS 11-21 18:11
PROVIDERS: Physician Assistant; ADMIT Internal Medicine Endocrinology, Diabetes & Metabolism
DX: J69.0 Pneumonitis due to inhalation of food and vomit (principal); I13.0 Hypertensive heart and chronic kidney disease with heart failure and stage 1 through stage 4 chronic kidney disease, or unspecified chronic kidney disease; I50.32 Chronic diastolic (congestive) heart failure; E27.49 Other adrenocortical insufficiency; I48.0 Paroxysmal atrial fibrillation; N18.3 Chronic kidney disease, stage 3 (moderate); M35.3 Polymyalgia rheumatica; E03.9 Hypothyroidism, unspecified; Z87.891 Personal history of nicotine dependence; E78.5 Hyperlipidemia, unspecified; J43.9 Emphysema, unspecified; Z79.52 Long term (current) use of systemic steroids; Z85.3 Personal history of malignant neoplasm of breast; Z79.01 Long term (current) use of anticoagulants
CPT/HCPCS: 0099U; 36415; 71046; 71250; 80048; 80053; 83605; 83880; 84484; 85025; 87040; 92526; 92610; 94640; 94667; 94760; 96361; 96365; 96367; 97116; 97162; 97165; 97535; 99285-25; A9270; A9270-GY; J0456; J0696; J2543; J3480; J7030; J7050; J7512

== ENCOUNTER 2019-12-01 21:18 | Inpatient (IN) | payer MEDICARE, OTHER ==
[~2019-12-01] VITALS: Ht 165.1 cm; Wt 63.2 kg
[~2019-12-01 21:18] MED LIST changes: +Florastor250 MG PO; +METO25ER PO
[2019-12-01 21:50] LABS: BASOPHILS ABSOLUTE AUTO 0.02 K/mm3 (0.00-0.23); BASOPHILS PERCENT AUTO 0 % (0-2); EOSINOPHILS ABSOLUTE AUTO 0.01 K/mm3 (0.00-0.68); EOSINOPHILS PERCENT AUTO 0 % (0-6); Hematocrit 46.5 % (33.0-51.0); Hemoglobin 14.9 g/dL (11.5-16.0); IMMATURE GRAN ABSOLUTE AUTO 0.21 K/mm3 (0.00-0.10); IMMATURE GRAN PERCENT AUTO 1 % (0-1); LYMPHOCYTES ABSOLUTE AUTO 2.04 K/mm3 (0.84-5.20); LYMPHOCYTES PERCENT AUTO 12 % (21-46); MONOCYTES ABSOLUTE AUTO 0.84 K/mm3 (0.16-1.47); MONOCYTES PERCENT AUTO 5 % (4-13); Mean Corpuscular HGB 29.9 pg (26.0-34.0); Mean Corpuscular Volume 93 fL (80-100); Mean Platelet Volume 9.7 fL (9.1-12.4); NEUTROPHILS ABSOLUTE AUTO 14.56 K/mm3 (1.96-9.15); NEUTROPHILS PERCENT AUTO 82 % (41-73); Platelet Count 333 K/mm3 (150-400); RDW Coefficient Variation 15.8 % (11.7-14.2); RDW Standard Deviation 54.4 fL (35.1-46.3); Red Blood Cell Count 4.99 M/mm3 (3.80-5.20); White Blood Cell Count 17.68 K/mm3 (4.00-11.30)
[2019-12-01 22:06] LABS: Alanine Aminotransfer (ALT/SGP 54 U/L (12-78); Albumin, Blood 3.2 g/dL (3.4-5.0); Albumin/Globulin Ratio 0.7 (0.8-1.8); Alk Phos 101 U/L (50-136); Anion Gap 8 mmol/L (6-16); Aspartate Aminotrans (AST/SGOT 23 U/L (12-37); Bilirubin, Total 0.7 mg/dL (0.1-1.0); Blood Urea Nitrogen 26 mg/dL (8-24); Bun/Creatinine Ratio 17.7 (12.0-20.0); CO2, Blood 31 mmol/L (21-32); Calcium, Blood 8.8 mg/dL (8.5-10.1); Chloride, Blood 92 mmol/L (98-108); Creatinine, Blood 1.47 mg/dL (0.40-1.00); Globulin, Blood 4.3 g/dL (2.2-4.0); Glomerular Filtration Rate 36 (60-); Glucose, Blood 196 mg/dL (70-99); Potassium, Blood 3.9 mmol/L (3.5-5.5); Sodium, Blood 131 mmol/L (136-145); Total Protein, Blood 7.5 g/dL (6.4-8.2); Troponin I <0.015 ng/mL (0.000-0.040)
[2019-12-02 01:52] LABS: BASOPHILS ABSOLUTE AUTO 0.04 K/mm3 (0.00-0.23); BASOPHILS PERCENT AUTO 0 % (0-2); EOSINOPHILS ABSOLUTE AUTO 0.01 K/mm3 (0.00-0.68); EOSINOPHILS PERCENT AUTO 0 % (0-6); Hematocrit 43.6 % (33.0-51.0); Hemoglobin 13.7 g/dL (11.5-16.0); IMMATURE GRAN ABSOLUTE AUTO 0.19 K/mm3 (0.00-0.10); IMMATURE GRAN PERCENT AUTO 1 % (0-1); LYMPHOCYTES ABSOLUTE AUTO 1.98 K/mm3 (0.84-5.20); LYMPHOCYTES PERCENT AUTO 11 % (21-46); MONOCYTES ABSOLUTE AUTO 0.99 K/mm3 (0.16-1.47); MONOCYTES PERCENT AUTO 5 % (4-13); Mean Corpuscular HGB 29.8 pg (26.0-34.0); Mean Corpuscular HGB Conc 31.4 g/dL (31.5-36.5); Mean Corpuscular Volume 95 fL (80-100); Mean Platelet Volume 9.9 fL (9.1-12.4); NEUTROPHILS ABSOLUTE AUTO 15.35 K/mm3 (1.96-9.15); NEUTROPHILS PERCENT AUTO 83 % (41-73); Platelet Count 269 K/mm3 (150-400); RDW Coefficient Variation 15.9 % (11.7-14.2); Red Blood Cell Count 4.59 M/mm3 (3.80-5.20); White Blood Cell Count 18.56 K/mm3 (4.00-11.30)
[2019-12-02 01:53] LABS: Bun/Creatinine Ratio 16.6 (12.0-20.0); Calcium, Blood 8.3 mg/dL (8.5-10.1); Creatinine, Blood 1.45 mg/dL (0.40-1.00); Potassium, Blood 3.3 mmol/L (3.5-5.5)
[2019-12-02 03:12] LABS: Adenovirus Not Detected (NOT DETECT); Bordetella pertussis Not Detected (NOT DETECT); Chlamydophila pneumoniae Not Detected (NOT DETECT); Coronavirus 229E Not Detected (NOT DETECT); Coronavirus HKU1 Not Detected (NOT DETECT); Coronavirus NL63 Not Detected (NOT DETECT); Coronavirus OC43 Not Detected (NOT DETECT); Human Metapneumovirus Not Detected (NOT DETECT); Human Rhinovirus/Enterovirus Not Detected (NOT DETECT); Influenza A/2009-H1 Not Detected (NOT DETECT); Influenza A/H1 Not Detected (NOT DETECT); Influenza A/H3 Not Detected (NOT DETECT); Influenza B Not Detected (NOT DETECT); Mycoplasma pneumoniae Not Detected (NOT DETECT); Parainfluenza Virus 1 Not Detected (NOT DETECT); Parainfluenza Virus 2 Not Detected (NOT DETECT); Parainfluenza Virus 3 Not Detected (NOT DETECT); Parainfluenza Virus 4 Not Detected (NOT DETECT); Respiratory Syncytial Virus Not Detected (NOT DETECT)
--- NOTE | 2019-12-02 07:26 | NUR ---
SHIFT SUMMARY PATIENT ALERT AND ORIENTED. ABLE TO WALK WITH A STEADY GAIT WITH A WALKER AND GAIT BELT WHILE ASSISTED BY THE DRUG ABUSE TREATMENT SPECIALIST UPON ADMIT. PATIENT NPO PENDING SPEECH THERAPY CONSULT. TELE SHOWS PATIENT TO BE IN AFIB. BOTH IVS PATEND AND IV IN LFA INFUSING WITH LACTATED RINGERS AT 100 ML/HR. BED IN LOWEST POSITION WITH WHEELS LOCKED. CALL LIGHT WITHIN REACH. REPORT GIVEN TO ONCOMING RN.
--- NOTE | 2019-12-02 13:19 | NUR ---
Case Conferenced with Bedside RN Aneta; Reviewed chart and discussed case with Aneta. Waiting on ST evaulation. Pt has history of aspiration pneumonia. Will F/U with Pt as results are obtained and plan of care is established.
--- NOTE | 2019-12-02 14:39 | NUR ---
ORAL CARE WITH SUCTION SWAB COMPLETED PER NEW ST ORDERS.
--- NOTE | 2019-12-02 18:00 | NUR ---
PT SEEN BY SPEECH THERAPY TODAY, RECOMMENDATION FOR MODIFIED SWALLOW. TEST FOR COVID-19 SENT TODAY, IF NEG WHEN RESULTS ARE RETURNED PT TO BE SCHEDULED FOR RECOMMENDED MODIFIED SWALLOW. PT WITH PUREE DIET AND NECTAR THICH LIQUIDS. NO ACUTE CHANGES NOTED THIS SHIFT, WILL CONTINUE TO MONITOR AND REPORT TO ONCOMING RN
--- NOTE | 2019-12-02 20:41 | NUR ---
PRIMARY CARE At 2040, I rounded on 361. The nurse was in the room with the patient and had taken her to the bathroom. she was back in bed and just about to take her meds. During this shift the nurse is primary care for this patient.
--- NOTE | 2019-12-03 05:11 | NUR ---
SHIFT SUMMARY: 79 Y/O FEMALE RESTED COMFORTABLY ALL SHIFT; DENIES PAIN OR NAUSEA; LUNG SOUNDS ARE DIMINISHED THROUGHOUT; HAPPY AND COOPERATIVE; BED ALARM APPLIED, BED LOW POSITION WITH CALL LIGHT AT SIDE.
--- NOTE | 2019-12-03 16:09 | NUR ---
ASSUMED PT CARE @ 1530, REPORT FROM EDGAR SOSA RN. PT IS RESTING QUIETLY, PLEASANT AFFECT, A/O X4. STATE CONTINUING WEAKNESS/FATIGUE, MALAISE. HR IRREG, HX AFIB, RATE 90'S @ THIS TIME. LUNGS ARE DECREASED w CRACKLES BASES, BIOX 95% RA, SHE STATE COUGH THAT @ X'S IS PRODUCTIVE, SPECIMEN CUP PROVIDED FOR SPUTUM SAMPLE. DX PNEUM, SHE WAS RECENTLY IN HOSP FOR SAME, POSSIBLE ASPIRATION, PLAN FOR HER TO HAVE BARIUM SWALLOW STUDY ONCE COVID19 RESULTS BACK. FOR NOW SHE IS ON SOFT DIET w NECTAR THICK FLUIDS. BLE EDEMA NOTED APPROX 1-2+. IV ANTIBX CONTINUE. 2 IV SITES L ARM ARE SL.
--- NOTE | 2019-12-03 21:06 | NUR ---
Primary Care At 2039, This REPAIRER WOOD FURNITURE rounded on 361. I took her to the bathroom, and got her back into bed. Before I left, I made sure she was comfortabel and needed no more assistance. During this shift, the RN is primary care for this patient.
[2019-12-04 04:38] LABS: BASOPHILS ABSOLUTE AUTO 0.03 K/mm3 (0.00-0.23); BASOPHILS PERCENT AUTO 0 % (0-2); EOSINOPHILS ABSOLUTE AUTO 0.05 K/mm3 (0.00-0.68); EOSINOPHILS PERCENT AUTO 1 % (0-6); Hematocrit 36.8 % (33.0-51.0); Hemoglobin 11.6 g/dL (11.5-16.0); IMMATURE GRAN ABSOLUTE AUTO 0.15 K/mm3 (0.00-0.10); IMMATURE GRAN PERCENT AUTO 2 % (0-1); LYMPHOCYTES ABSOLUTE AUTO 1.49 K/mm3 (0.84-5.20); LYMPHOCYTES PERCENT AUTO 15 % (21-46); MONOCYTES ABSOLUTE AUTO 0.86 K/mm3 (0.16-1.47); MONOCYTES PERCENT AUTO 9 % (4-13); Mean Corpuscular HGB 29.9 pg (26.0-34.0); Mean Corpuscular HGB Conc 31.5 g/dL (31.5-36.5); Mean Corpuscular Volume 95 fL (80-100); Mean Platelet Volume 10.1 fL (9.1-12.4); NEUTROPHILS ABSOLUTE AUTO 7.15 K/mm3 (1.96-9.15); NEUTROPHILS PERCENT AUTO 74 % (41-73); Platelet Count 214 K/mm3 (150-400); RDW Coefficient Variation 16.4 % (11.7-14.2); RDW Standard Deviation 57.1 fL (35.1-46.3); Red Blood Cell Count 3.88 M/mm3 (3.80-5.20); White Blood Cell Count 9.73 K/mm3 (4.00-11.30)
[2019-12-04 05:02] LABS: Albumin/Globulin Ratio 0.6 (0.8-1.8); Bilirubin, Total 0.6 mg/dL (0.1-1.0); Bun/Creatinine Ratio 12.5 (12.0-20.0); Calcium, Blood 8.4 mg/dL (8.5-10.1); Creatinine, Blood 1.04 mg/dL (0.40-1.00); Globulin, Blood 3.1 g/dL (2.2-4.0); Potassium, Blood 3.3 mmol/L (3.5-5.5); Total Protein, Blood 5.1 g/dL (6.4-8.2)
--- NOTE | 2019-12-04 18:27 | NUR ---
SHIFT SUMMARY PATIENT COVID-19 RESULTS NEGATIVE,ISOLATION PRECAUTIONS REMOVED. PATIENT ON ROOM AIR SATS 92% AND ABOVE. COUGH REPORTED SUPERINTENDENT LOGGING TODAY. FAINT FINE BIBASILAR CRACKLES, DIMINISHED THROUGHOUT. MD ROUNDED TODAY WITH RN, PLAN FOR PATIENT IS TO HAVE BARIUM SWALLOW COMPLETED TOMORROW.
--- NOTE | 2019-12-05 04:03 | NUR ---
HOME CARE SCHEDULER SUMMARY Slept well. minimal complaints of pain with exception of chronic low back pain at beginning of shift which was relieved with one oxycodone. lung sounds with scattered crackles in upper lobes. strong cough productive of scant amount of tannish/white sputum. Patient up with very minimal standby assist and FWW to bathroom. Hoping for some answers after AM Barium Swallow.
[2019-12-05 05:23] LABS: BASOPHILS ABSOLUTE AUTO 0.03 K/mm3 (0.00-0.23); BASOPHILS PERCENT AUTO 0 % (0-2); EOSINOPHILS ABSOLUTE AUTO 0.09 K/mm3 (0.00-0.68); EOSINOPHILS PERCENT AUTO 1 % (0-6); Hemoglobin 12.9 g/dL (11.5-16.0); IMMATURE GRAN PERCENT AUTO 1 % (0-1); LYMPHOCYTES ABSOLUTE AUTO 1.48 K/mm3 (0.84-5.20); LYMPHOCYTES PERCENT AUTO 21 % (21-46); MONOCYTES ABSOLUTE AUTO 0.68 K/mm3 (0.16-1.47); MONOCYTES PERCENT AUTO 10 % (4-13); Mean Corpuscular HGB 29.6 pg (26.0-34.0); Mean Corpuscular HGB Conc 30.7 g/dL (31.5-36.5); Mean Corpuscular Volume 96 fL (80-100); Mean Platelet Volume 10.4 fL (9.1-12.4); NEUTROPHILS ABSOLUTE AUTO 4.73 K/mm3 (1.96-9.15); NEUTROPHILS PERCENT AUTO 67 % (41-73); Platelet Count 222 K/mm3 (150-400); RDW Coefficient Variation 16.6 % (11.7-14.2); RDW Standard Deviation 59.3 fL (35.1-46.3); Red Blood Cell Count 4.36 M/mm3 (3.80-5.20); White Blood Cell Count 7.11 K/mm3 (4.00-11.30)
[2019-12-05 05:44] LABS: Bun/Creatinine Ratio 11.5 (12.0-20.0); Calcium, Blood 8.8 mg/dL (8.5-10.1); Creatinine, Blood 1.13 mg/dL (0.40-1.00); Potassium, Blood 3.2 mmol/L (3.5-5.5)
[2019-12-05] MEDS ORDERED: Prednisone5 MG PO (15:22)
[2019-12-05] MEDS ORDERED: Augmentin 875-1 EACH PO (15:25)
--- NOTE | 2019-12-05 16:08 | NUR ---
DISCHARGE NOTE- PT WAS GIVEN VERBAL AND WRITTEN DISCHARGE INSTRUCTIONS AND ACKNOWLEDGED UNDERSTANDING OF THEM. MEDS FAXED TO [facility] IN [place] PER PT REQUEST. RECIEVED A CALL FROM THEM AND THEY ARE CURRENTLY WORKING ON PT MED ORDERS. BOTH OF PT IV'S DC'D WNL PRIOR TO DISCHARGE. PT WAS GIVEN CONTACT INFO IF QUESTIONS ABOUT HER DISCHARGE SHOULD ARRISE. NO FURTHER QUESTIONS AT THE TIME OF DISCHARGE. PT ESCORTED OUT VIA W/C BY THE CONTAINER REPAIRER.
== END 2019-12-05 15:44 | disposition home or self-care (01) | DRG 871 ==
LOC: ER 21:18 → MEDS 23:26 → ER 12-02 00:34 → MEDS 12-02 01:10
PROVIDERS: Internal Medicine; Physician Assistant; ADMIT Family Medicine
DX: A41.9 Sepsis, unspecified organism (principal); J96.01 Acute respiratory failure with hypoxia; J69.0 Pneumonitis due to inhalation of food and vomit; J44.1 Chronic obstructive pulmonary disease with (acute) exacerbation; E87.1 Hypo-osmolality and hyponatremia; I48.92 Unspecified atrial flutter; E27.40 Unspecified adrenocortical insufficiency; E87.6 Hypokalemia; M35.3 Polymyalgia rheumatica; E03.9 Hypothyroidism, unspecified; N18.3 Chronic kidney disease, stage 3 (moderate); I12.9 Hypertensive chronic kidney disease with stage 1 through stage 4 chronic kidney disease, or unspecified chronic kidney disease; M79.7 Fibromyalgia; I48.0 Paroxysmal atrial fibrillation; Z87.891 Personal history of nicotine dependence; Z85.3 Personal history of malignant neoplasm of breast; Z79.01 Long term (current) use of anticoagulants; Z79.891 Long term (current) use of opiate analgesic; Z79.51 Long term (current) use of inhaled steroids; Z79.52 Long term (current) use of systemic steroids; Z79.899 Other long term (current) drug therapy
CPT/HCPCS: 0099U; 36415; 71045; 74230; 80048; 80053; 83605; 83880; 84484; 85025; 87040; 87070; 87205; 92610; 92611; 93005; 93010; 94640; 94760; 96365; 97110; 97161; 97165; 97530; 97535; 99285-25; A9270; A9270-GY; J0696; J2543; J7030; J7050; J7120; J7512; U0002

== ENCOUNTER 2019-12-12 16:06 | Inpatient (IN) | payer MEDICARE, OTHER ==
[~2019-12-12] VITALS: Ht 167.6 cm; Wt 61.2 kg
[~2019-12-12 16:06] MED LIST changes: +Augmentin 875-1 EACH PO
[2019-12-12 17:02] LABS: BASOPHILS ABSOLUTE AUTO 0.02 K/mm3 (0.00-0.23); BASOPHILS PERCENT AUTO 0 % (0-2); EOSINOPHILS ABSOLUTE AUTO 0.02 K/mm3 (0.00-0.68); EOSINOPHILS PERCENT AUTO 0 % (0-6); Hematocrit 43.7 % (33.0-51.0); Hemoglobin 13.8 g/dL (11.5-16.0); IMMATURE GRAN ABSOLUTE AUTO 0.11 K/mm3 (0.00-0.10); IMMATURE GRAN PERCENT AUTO 1 % (0-1); LYMPHOCYTES ABSOLUTE AUTO 2.33 K/mm3 (0.84-5.20); LYMPHOCYTES PERCENT AUTO 14 % (21-46); MONOCYTES ABSOLUTE AUTO 0.44 K/mm3 (0.16-1.47); MONOCYTES PERCENT AUTO 3 % (4-13); Mean Corpuscular HGB 30.3 pg (26.0-34.0); Mean Corpuscular HGB Conc 31.6 g/dL (31.5-36.5); Mean Corpuscular Volume 96 fL (80-100); Mean Platelet Volume 10.9 fL (9.1-12.4); NEUTROPHILS ABSOLUTE AUTO 13.46 K/mm3 (1.96-9.15); NEUTROPHILS PERCENT AUTO 82 % (41-73); Platelet Count 203 K/mm3 (150-400); RDW Coefficient Variation 15.9 % (11.7-14.2); RDW Standard Deviation 56.2 fL (35.1-46.3); Red Blood Cell Count 4.56 M/mm3 (3.80-5.20); White Blood Cell Count 16.38 K/mm3 (4.00-11.30)
[2019-12-12 17:30] LABS: Alanine Aminotransfer (ALT/SGP 29 U/L (12-78); Albumin, Blood 2.7 g/dL (3.4-5.0); Albumin/Globulin Ratio 0.6 (0.8-1.8); Alk Phos 86 U/L (50-136); Anion Gap 7 mmol/L (6-16); Aspartate Aminotrans (AST/SGOT 29 U/L (12-37); Bilirubin, Total 1.1 mg/dL (0.1-1.0); Blood Urea Nitrogen 25 mg/dL (8-24); Bun/Creatinine Ratio 19.1 (12.0-20.0); CO2, Blood 32 mmol/L (21-32); Calcium, Blood 8.9 mg/dL (8.5-10.1); Chloride, Blood 96 mmol/L (98-108); Creatinine, Blood 1.31 mg/dL (0.40-1.00); Globulin, Blood 4.4 g/dL (2.2-4.0); Glomerular Filtration Rate 41 (60-); Glucose, Blood 167 mg/dL (70-99); Potassium, Blood 3.3 mmol/L (3.5-5.5); Sodium, Blood 135 mmol/L (136-145); Total Protein, Blood 7.1 g/dL (6.4-8.2); Troponin I <0.015 ng/mL (0.000-0.040)
[2019-12-12 17:42] LABS: Source, Urine Clean Catch
[2019-12-12 17:47] LABS: Bilirubin, Urine Neg (Neg); Blood, Urine 3+ (Neg); Glucose Qualitative, Urine Neg (Neg); Ketones, Urine Neg (Neg); Leukocyte Esterase, Urine 1+ (Neg); Nitrite, Urine Neg (Neg); Protein, Urine 2+ (Neg); Specific Gravity, Urine 1.015 (1.003-1.022); Urobilinogen, Urine NORM (Normal)
[2019-12-12 17:57] LABS: Appearance, Urine Clear (Clear); Color, Urine Yellow (P-Yellow)
[2019-12-12 17:59] LABS: Bacteria Few /hpf; Mucus Light (0-Heavy); Squamous Epithelial Cells Rare /hpf (Few)
[2019-12-12 20:03] LABS: Adenovirus Not Detected (NOT DETECT); Bordetella pertussis Not Detected (NOT DETECT); Chlamydophila pneumoniae Not Detected (NOT DETECT); Coronavirus 229E Not Detected (NOT DETECT); Coronavirus HKU1 Not Detected (NOT DETECT); Coronavirus NL63 Not Detected (NOT DETECT); Coronavirus OC43 Not Detected (NOT DETECT); Human Metapneumovirus Not Detected (NOT DETECT); Human Rhinovirus/Enterovirus Not Detected (NOT DETECT); Influenza A/2009-H1 Not Detected (NOT DETECT); Influenza A/H1 Not Detected (NOT DETECT); Influenza A/H3 Not Detected (NOT DETECT); Influenza B Not Detected (NOT DETECT); Mycoplasma pneumoniae Not Detected (NOT DETECT); Parainfluenza Virus 1 Not Detected (NOT DETECT); Parainfluenza Virus 2 Not Detected (NOT DETECT); Parainfluenza Virus 3 Not Detected (NOT DETECT); Parainfluenza Virus 4 Not Detected (NOT DETECT); Respiratory Syncytial Virus Not Detected (NOT DETECT)
--- NOTE | 2019-12-13 03:24 | NUR ---
PRIMARY CARE AT 0323, THIS DO ALL OPERATOR ROUNDED ON 360, THE NURSE WAS IN THE ROOM PROVIDING PATIENT CARE. AT THIS TIME THE PATIENT SEEMED IN NO DISTRESS. DURING THIS SHIFT THE NURSE WILL BE PRIMARY CARE FOR THIS PATIENT.
--- NOTE | 2019-12-13 04:45 | NUR ---
SHIFT SUMMARY- PT. NEW ADMIT FROM ED. A&O, PLEASANT AND COOPERATIVE WITH CARE. PT. R/O COVID-19. RECENT HOSPITALIZATION DUE TO PNA. C/O WORSENING SX'S AND CONTINUED WEAKNESS. ON 4L OF O2. PT. NPO, ST TO EVAL FOR RECURRENT ASP PNA. INCONTINENT, ATTENDS IN PLACE. NOTED SORE TO THE RT HEEL, COVERED WITH MEPILEX (SEE PHOTO IN CHART). PT. HAS DENIED ANY PAIN OR DISCOMFORT THIS SHIFT. ASLEEP DURING MOST OF THE NIGHT. NO APPARENT DISTRESS NOTED. CALL LIGHT WITHIN REACH AND SIDE RAILS UP X2. WILL CONT TO MONITOR.
[2019-12-13 04:59] LABS: BASOPHILS ABSOLUTE AUTO 0.03 K/mm3 (0.00-0.23); BASOPHILS PERCENT AUTO 0 % (0-2); EOSINOPHILS ABSOLUTE AUTO 0.04 K/mm3 (0.00-0.68); EOSINOPHILS PERCENT AUTO 0 % (0-6); Hematocrit 40.6 % (33.0-51.0); Hemoglobin 12.9 g/dL (11.5-16.0); IMMATURE GRAN ABSOLUTE AUTO 0.09 K/mm3 (0.00-0.10); IMMATURE GRAN PERCENT AUTO 1 % (0-1); LYMPHOCYTES ABSOLUTE AUTO 1.39 K/mm3 (0.84-5.20); LYMPHOCYTES PERCENT AUTO 11 % (21-46); MONOCYTES ABSOLUTE AUTO 0.34 K/mm3 (0.16-1.47); MONOCYTES PERCENT AUTO 3 % (4-13); Mean Corpuscular HGB Conc 31.8 g/dL (31.5-36.5); Mean Corpuscular Volume 94 fL (80-100); Mean Platelet Volume 10.3 fL (9.1-12.4); NEUTROPHILS ABSOLUTE AUTO 11.08 K/mm3 (1.96-9.15); NEUTROPHILS PERCENT AUTO 86 % (41-73); Platelet Count 174 K/mm3 (150-400); RDW Coefficient Variation 15.8 % (11.7-14.2); RDW Standard Deviation 54.8 fL (35.1-46.3); White Blood Cell Count 12.97 K/mm3 (4.00-11.30)
[2019-12-13 05:22] LABS: Bun/Creatinine Ratio 17.2 (12.0-20.0); Calcium, Blood 8.5 mg/dL (8.5-10.1); Creatinine, Blood 1.22 mg/dL (0.40-1.00)
[2019-12-13 18:03] LABS: Magnesium, Blood 2.1 mg/dL (1.6-2.4); Troponin I 0.016 ng/mL (0.000-0.040)
[2019-12-13 18:05] LABS: Thyroid Stimulating Hormone 3.91 uIU/mL (0.360-4.800)
--- NOTE | 2019-12-13 18:11 | NUR ---
PT. SITTING IN BED EATING. PT'S BLOOD PRESSURES HAVE BEEN LOW TODAY DESPITE 500 ML BOLUS GIVEN THE IVF CONTINUED AT 50 ML/HR. NOTIFIED DR. Josefina ESTRELLA OF LOW BP AND HE ORDERED A TELE AND A CARDIOLOGY CONSULT. DR. STUART GARCIA WILL BE SEEING PT. IN AM. K-RIDER RUNNING AND ONE HANGING TO BE STARTED WHEN CURRENT ONE IS FINISHED. SPEECH EVAL COMPLETED AND INSTRUCTIONS ON THE BOARD. PT. TAKES MEDS ONE AT A TIME IN [facility]. CURRENTLY IN AFIB AT 114 WITH PVC'S.
--- NOTE | 2019-12-13 20:18 | NUR ---
ASSUMED CARE. SHAHZAD IS ALERT AND ORIENTED. DENIES ANY PAIN OR DISCOMFORT. VS WNL, AFEBRILE. SATS GOOD ON 2 LITERS OF O2NC. LUNG SOUNDS COURSE, COUGH NOTED BUT STATES SHE HAS NOT BEEN COUGHING THAT MUCH. ENCOURAGED HER TO MOVE IN BED AND TO DRINK FLUIDS. HR AFIB IRREGULAR. IV INFUSING WITH NO PROBLEMS. DENIES ANY NEEDS AT THIS TIME. WILL CONTINUE TO MONITOR.
--- NOTE | 2019-12-14 00:18 | NUR ---
SHAHZAD IS SLEEPING, BUT AWAKENS EASILY FOR MEDICATIONS. HUNG ANTIBOTIC. THEN SHE LAID BACK DOWN. CALL LIGHT IN REACH.
[2019-12-14 04:54] LABS: BASOPHILS ABSOLUTE AUTO 0.01 K/mm3 (0.00-0.23); BASOPHILS PERCENT AUTO 0 % (0-2); EOSINOPHILS ABSOLUTE AUTO 0.13 K/mm3 (0.00-0.68); EOSINOPHILS PERCENT AUTO 1 % (0-6); Hematocrit 39.7 % (33.0-51.0); Hemoglobin 12.4 g/dL (11.5-16.0); IMMATURE GRAN ABSOLUTE AUTO 0.08 K/mm3 (0.00-0.10); IMMATURE GRAN PERCENT AUTO 1 % (0-1); LYMPHOCYTES ABSOLUTE AUTO 1.19 K/mm3 (0.84-5.20); LYMPHOCYTES PERCENT AUTO 10 % (21-46); MONOCYTES ABSOLUTE AUTO 0.48 K/mm3 (0.16-1.47); MONOCYTES PERCENT AUTO 4 % (4-13); Mean Corpuscular HGB 29.9 pg (26.0-34.0); Mean Corpuscular HGB Conc 31.2 g/dL (31.5-36.5); Mean Corpuscular Volume 96 fL (80-100); Mean Platelet Volume 10.7 fL (9.1-12.4); NEUTROPHILS ABSOLUTE AUTO 9.98 K/mm3 (1.96-9.15); NEUTROPHILS PERCENT AUTO 84 % (41-73); Platelet Count 172 K/mm3 (150-400); RDW Coefficient Variation 15.9 % (11.7-14.2); RDW Standard Deviation 56.3 fL (35.1-46.3); Red Blood Cell Count 4.15 M/mm3 (3.80-5.20); White Blood Cell Count 11.87 K/mm3 (4.00-11.30)
[2019-12-14 05:11] LABS: Bun/Creatinine Ratio 16.2 (12.0-20.0); Calcium, Blood 8.5 mg/dL (8.5-10.1); Creatinine, Blood 1.05 mg/dL (0.40-1.00); Potassium, Blood 3.9 mmol/L (3.5-5.5)
--- NOTE | 2019-12-14 06:51 | NUR ---
SHIFT SUMMARY: SHAHZAD HAD A GOOD NIGHT. SLEEPING MOST OF THE SHIFT. VS WNL, AFEBRILE. SATS STAYING BETWEEN 88-92% ON CONTINUOUS BIOX. LUNG SOUNDS COURSE, NO SOB THIS SHIFT. COUGH OCCATIONAL. OXYGEN VIA NC AT 4 LITERS. INCONTINET X2. IV PATENT WITH CONTINUOUS FLUIDS. MEDS PER EMAR. NO PAIN NOTED. COVID STILL PENDING. NO FURTHER CHANGES TO REPORT.
--- NOTE | 2019-12-14 19:00 | NUR ---
PT. SITTING IN BED WATCHING TV. PT. HAS HAD A FEW EPISODES OF DROPPING HER SATS TODAY WHEN SHE WAS BEING CHANGED. WITH TURNING OXYGEN TO 9 AND PUTTING HER IN AN UPRIGHT POSITION SHE RECOVERS FAIRLY SOON. PT. IS ALSO IN A-FLUTTER WHICH COULD EEFFECT THE O2 SATS. TO BE NOTIFIED IF HEART RATE IS OVER 120 AND SUSTAINING.
--- NOTE | 2019-12-14 22:17 | NUR ---
PATIENT STATING 95% ON 4L O2 NC CONTINUOUS PULSE OXIMETRY. BEDFAST AND SLEEPING. URBAN FORESTER REPORTS A-FLUTTER AT 108. CALL LIGHT IN REACH.
--- NOTE | 2019-12-15 03:05 | NUR ---
SHIFT SUMMARY PATIENT HAD NO ACUTE CHANGES OBSERVED. AXOX 3 AND BEDFAST. PIV REMAINS INTACT. SUPERVISING BAILIFF REPORTS A-FLUTTER 108. ON 4L O2 NC AND CONTINUOUS PULSE OXIMETRY. DENIES PAIN, SOB, AND N/V. VSS/AFEBRILE. TAKES MEDICATION X ONE EACH WITH YOGURT. IV ABX INFUSED. CALL LIGHT IN REACH. BED IN LOWEST POSITION. WILL CONTINUE TO MONITOR UNTIL DAY SHIFT NURSE ASSUMES CARE.
[2019-12-15 04:43] LABS: BASOPHILS ABSOLUTE AUTO 0.01 K/mm3 (0.00-0.23); BASOPHILS PERCENT AUTO 0 % (0-2); EOSINOPHILS ABSOLUTE AUTO 0.01 K/mm3 (0.00-0.68); EOSINOPHILS PERCENT AUTO 0 % (0-6); Hematocrit 40.7 % (33.0-51.0); Hemoglobin 12.6 g/dL (11.5-16.0); IMMATURE GRAN ABSOLUTE AUTO 0.09 K/mm3 (0.00-0.10); IMMATURE GRAN PERCENT AUTO 1 % (0-1); LYMPHOCYTES ABSOLUTE AUTO 1.38 K/mm3 (0.84-5.20); LYMPHOCYTES PERCENT AUTO 14 % (21-46); MONOCYTES ABSOLUTE AUTO 0.53 K/mm3 (0.16-1.47); MONOCYTES PERCENT AUTO 5 % (4-13); Mean Corpuscular HGB 29.5 pg (26.0-34.0); Mean Corpuscular Volume 95 fL (80-100); Mean Platelet Volume 10.9 fL (9.1-12.4); NEUTROPHILS ABSOLUTE AUTO 7.84 K/mm3 (1.96-9.15); NEUTROPHILS PERCENT AUTO 80 % (41-73); Platelet Count 218 K/mm3 (150-400); RDW Coefficient Variation 15.8 % (11.7-14.2); RDW Standard Deviation 55.7 fL (35.1-46.3); Red Blood Cell Count 4.27 M/mm3 (3.80-5.20); White Blood Cell Count 9.86 K/mm3 (4.00-11.30)
[2019-12-15 04:59] LABS: Calcium, Blood 8.9 mg/dL (8.5-10.1); Potassium, Blood 4.5 mmol/L (3.5-5.5)
--- NOTE | 2019-12-15 16:57 | NUR ---
PT WORKED WITH PT THIS SHIFT. SHE HAS HAD NO COMPLAINTS OR SOB. STILL REQUIRING O2. SHE HAS HAD NO COMPLAINTS. CALL LIGHT WITHIN REACH.
--- NOTE | 2019-12-15 18:06 | NUR ---
Initial spiritual care note: Mrs. Retana is pleasant and denies fears/concerns. She has a strong marriage and good support of family/friends. She is hopeful for recovery and is satisifed with her Full Code status. She responded well to gentle encouragement. She is non-holiness, but allowed prayer for healing. I will remain available.
--- NOTE | 2019-12-16 04:50 | NUR ---
SHIFT SUMMARY: 79 Y/O FEMALE RESTED COMFORTABLY ALL SHIFT; DENIES PAIN OR NAUSEA; PT EAGER TO POSSILBY RETURN HOME TODAY; BED LOW POSITION WITH CALL LIGHT AT SIDE.
[2019-12-16 04:51] LABS: BASOPHILS ABSOLUTE AUTO 0.02 K/mm3 (0.00-0.23); BASOPHILS PERCENT AUTO 0 % (0-2); EOSINOPHILS ABSOLUTE AUTO 0.02 K/mm3 (0.00-0.68); EOSINOPHILS PERCENT AUTO 0 % (0-6); Hematocrit 38.1 % (33.0-51.0); Hemoglobin 11.9 g/dL (11.5-16.0); IMMATURE GRAN ABSOLUTE AUTO 0.14 K/mm3 (0.00-0.10); IMMATURE GRAN PERCENT AUTO 2 % (0-1); LYMPHOCYTES ABSOLUTE AUTO 1.45 K/mm3 (0.84-5.20); LYMPHOCYTES PERCENT AUTO 19 % (21-46); MONOCYTES ABSOLUTE AUTO 0.58 K/mm3 (0.16-1.47); MONOCYTES PERCENT AUTO 7 % (4-13); Mean Corpuscular HGB 30.1 pg (26.0-34.0); Mean Corpuscular HGB Conc 31.2 g/dL (31.5-36.5); Mean Corpuscular Volume 96 fL (80-100); Mean Platelet Volume 10.5 fL (9.1-12.4); NEUTROPHILS ABSOLUTE AUTO 5.63 K/mm3 (1.96-9.15); NEUTROPHILS PERCENT AUTO 72 % (41-73); Platelet Count 239 K/mm3 (150-400); RDW Coefficient Variation 15.5 % (11.7-14.2); Red Blood Cell Count 3.96 M/mm3 (3.80-5.20); White Blood Cell Count 7.84 K/mm3 (4.00-11.30)
[2019-12-16 05:05] LABS: Bun/Creatinine Ratio 19.2 (12.0-20.0); Calcium, Blood 8.6 mg/dL (8.5-10.1); Creatinine, Blood 1.04 mg/dL (0.40-1.00); Potassium, Blood 4.7 mmol/L (3.5-5.5)
[2019-12-16] MEDS ORDERED: METO25 PO (13:56)
[2019-12-16] MEDS ORDERED: AMOCLA875 PO (14:03)
--- NOTE | 2019-12-16 14:53 | NUR ---
CANDE CAME IN AND REVIEWED USEAGE OF OXYGEN AND LEFT ONE TANK. PATIENT TO CALL CANDE WHEN SHE GETS HOME. REVIEW D'C INSTRUCTIONS. YENIFER SANDHU WILL CALL TO SCHEDULE F/U APPT. YENIFER HAS 2 MEDS AT [facility] TO SEED ANALYSIS LABORATORY ASSISTANT. REVIEW MEDS. AWARE TO FINISH ALL ANTIBIOTIC. ANSWER ALL QUESTIONS. CALLED TO COME IN AND BRING IN CLOTHES TO GO HOME IN.
== END 2019-12-16 15:27 | disposition home or self-care (01) | DRG 177 ==
LOC: ER 16:06 → MEDS 20:48 → ENPENDDIS 12-16 13:33 → MEDS 12-16 15:27
PROVIDERS: Emergency Medicine; Family Medicine; Nurse Practitioner Acute Care; Physician Assistant; ADMIT Family Medicine
DX: J69.0 Pneumonitis due to inhalation of food and vomit (principal); J96.21 Acute and chronic respiratory failure with hypoxia; I13.0 Hypertensive heart and chronic kidney disease with heart failure and stage 1 through stage 4 chronic kidney disease, or unspecified chronic kidney disease; I48.0 Paroxysmal atrial fibrillation; I50.9 Heart failure, unspecified; Z99.81 Dependence on supplemental oxygen; D89.9 Disorder involving the immune mechanism, unspecified; Z85.3 Personal history of malignant neoplasm of breast; I95.9 Hypotension, unspecified; E03.9 Hypothyroidism, unspecified; E11.22 Type 2 diabetes mellitus with diabetic chronic kidney disease; N18.9 Chronic kidney disease, unspecified; Z87.891 Personal history of nicotine dependence; J44.9 Chronic obstructive pulmonary disease, unspecified; R13.12 Dysphagia, oropharyngeal phase; R62.7 Adult failure to thrive
CPT/HCPCS: 0099U; 36415; 71045; 80048; 80053; 81001; 83605; 83735; 83880; 84145; 84443; 84484; 85025; 87040; 87086; 92526; 92610; 93005; 93010; 94640; 94760; 94761; 94762; 96365; 96366; 96367; 99285-25; A9270-GY; J0696; J2543; J3480; J7050; J7512; U0002

== ENCOUNTER → 2020-01-04 | Outpatient (CLI) | payer MEDICARE, OTHER | END | disposition home or self-care (01) | LOC: LAB SHORT 17:17 → LAB EV 17:17 | DX: R06.02 Shortness of breath (principal) | CPT/HCPCS: U0003 ==

== ENCOUNTER → 2020-01-05 | Outpatient (CLI) | payer MEDICARE, OTHER ==
[2020-01-05 10:03] LABS: BASOPHILS ABSOLUTE AUTO 0.02 K/mm3 (0.00-0.23); BASOPHILS PERCENT AUTO 0 % (0-2); EOSINOPHILS ABSOLUTE AUTO 0.02 K/mm3 (0.00-0.68); EOSINOPHILS PERCENT AUTO 0 % (0-6); Hematocrit 40.8 % (33.0-51.0); Hemoglobin 12.7 g/dL (11.5-16.0); IMMATURE GRAN ABSOLUTE AUTO 0.07 K/mm3 (0.00-0.10); IMMATURE GRAN PERCENT AUTO 1 % (0-1); LYMPHOCYTES PERCENT AUTO 14 % (21-46); MONOCYTES ABSOLUTE AUTO 0.49 K/mm3 (0.16-1.47); MONOCYTES PERCENT AUTO 4 % (4-13); Mean Corpuscular HGB 29.8 pg (26.0-34.0); Mean Corpuscular HGB Conc 31.1 g/dL (31.5-36.5); Mean Corpuscular Volume 96 fL (80-100); Mean Platelet Volume 11.1 fL (9.1-12.4); NEUTROPHILS ABSOLUTE AUTO 10.15 K/mm3 (1.96-9.15); NEUTROPHILS PERCENT AUTO 81 % (41-73); Platelet Count 157 K/mm3 (150-400); RDW Coefficient Variation 14.7 % (11.7-14.2); RDW Standard Deviation 51.1 fL (35.1-46.3); Red Blood Cell Count 4.26 M/mm3 (3.80-5.20); White Blood Cell Count 12.55 K/mm3 (4.00-11.30)
[2020-01-05 10:10] LABS: Albumin, Blood 2.8 g/dL (3.4-5.0); Albumin/Globulin Ratio 0.7 (0.8-1.8); Bun/Creatinine Ratio 16.9 (12.0-20.0); Calcium, Blood 8.8 mg/dL (8.5-10.1); Creatinine, Blood 1.3 mg/dL (0.40-1.00); Potassium, Blood 3.2 mmol/L (3.5-5.5); Total Protein, Blood 6.8 g/dL (6.4-8.2)
== END | disposition home or self-care (01) ==
LOC: LAB EV 09:46 → LAB SHORT 09:46
PROVIDERS: Physician Assistant
DX: J18.9 Pneumonia, unspecified organism (principal)
CPT/HCPCS: 80053; 83880; 85025

== ENCOUNTER 2020-02-02 16:03 | Emergency (ER) | payer MEDICARE ==
[~2020-02-02] VITALS: Ht 165.1 cm; Wt 63.5 kg
== END 2020-02-02 16:42 | disposition home or self-care (01) ==
LOC: ER 16:03
DX: D68.9 Coagulation defect, unspecified (principal); I10 Essential (primary) hypertension; J44.9 Chronic obstructive pulmonary disease, unspecified; I48.91 Unspecified atrial fibrillation; M79.7 Fibromyalgia; Z79.01 Long term (current) use of anticoagulants; Z87.01 Personal history of pneumonia (recurrent); Z85.3 Personal history of malignant neoplasm of breast; Z87.891 Personal history of nicotine dependence; Z79.52 Long term (current) use of systemic steroids; Z79.899 Other long term (current) drug therapy; Z79.2 Long term (current) use of antibiotics
CPT/HCPCS: 96372; 99282-25; J3430

== ENCOUNTER → 2020-02-24 | Outpatient (CLI) | payer MEDICARE ==
[2020-02-24 14:05] LABS: BASOPHILS ABSOLUTE AUTO 0.05 K/mm3 (0.00-0.23); BASOPHILS PERCENT AUTO 0 % (0-2); EOSINOPHILS PERCENT AUTO 0 % (0-6); Hematocrit 38.7 % (33.0-51.0); Hemoglobin 12.2 g/dL (11.5-16.0); IMMATURE GRAN ABSOLUTE AUTO 0.11 K/mm3 (0.00-0.10); IMMATURE GRAN PERCENT AUTO 1 % (0-1); LYMPHOCYTES ABSOLUTE AUTO 1.15 K/mm3 (0.84-5.20); LYMPHOCYTES PERCENT AUTO 5 % (21-46); MONOCYTES ABSOLUTE AUTO 0.87 K/mm3 (0.16-1.47); MONOCYTES PERCENT AUTO 4 % (4-13); Mean Corpuscular HGB 28.1 pg (26.0-34.0); Mean Corpuscular HGB Conc 31.5 g/dL (31.5-36.5); Mean Corpuscular Volume 89 fL (80-100); Mean Platelet Volume 10.6 fL (9.1-12.4); NEUTROPHILS ABSOLUTE AUTO 19.08 K/mm3 (1.96-9.15); NEUTROPHILS PERCENT AUTO 90 % (41-73); Platelet Count 230 K/mm3 (150-400); RDW Coefficient Variation 14.6 % (11.7-14.2); RDW Standard Deviation 47.8 fL (35.1-46.3); Red Blood Cell Count 4.34 M/mm3 (3.80-5.20); White Blood Cell Count 21.26 K/mm3 (4.00-11.30)
[2020-02-24 14:13] LABS: Bun/Creatinine Ratio 14.7 (12.0-20.0); Calcium, Blood 8.2 mg/dL (8.5-10.1); Creatinine, Blood 1.16 mg/dL (0.40-1.00); Potassium, Blood 3.5 mmol/L (3.5-5.5); Troponin I 0.027 ng/mL (0.000-0.040)
== END | disposition home or self-care (01) ==
LOC: LAB EV 13:52 → LAB SHORT 13:52
PROVIDERS: Physician Assistant Surgical
DX: R09.02 Hypoxemia (principal); R05 Cough
CPT/HCPCS: 80048; 83880; 84484; 85025

== ENCOUNTER 2020-07-26 09:08 | Day surgery (SDC) | payer MEDICARE ==
[~2020-07-26] VITALS: Ht 165.1 cm; Wt 57.0 kg
[~2020-07-26 09:08] MED LIST changes: +AMOCLA500 PO; +ARIMIDEX1 MG PO; +Coumadin2 MG PO; +Cranberry400 MG PO; +DILT120 PO; +Diltiazem HCl120 MG PO; -Duoneb 2.5-0.5 M3 ML NEB; +IPRAT-ALBUT 0.5-3 ML NEB; +Jantoven4 MG PO; +K-Dur20 MEQ PO; +LEVO-T88 MC1 PO; +LINE600 PO; +METO2.5 PO; +SPIR25 PO; +Vitamin D2000 UNIT PO; +XARELTO15 MG PO; +XARELTO20 MG PO
== END 2020-07-26 11:56 | disposition home or self-care (01) ==
LOC: ORSCSDS 09:08
PROVIDERS: Orthopaedic Surgery
PROC: 0LB50ZZ Excision of Right Lower Arm and Wrist Tendon, Open Approach (ICD-10-PCS; principal; 2020-07-26 10:30)
DX: M67.431 Ganglion, right wrist (principal); E78.00 Pure hypercholesterolemia, unspecified; E03.9 Hypothyroidism, unspecified; I10 Essential (primary) hypertension; Z79.899 Other long term (current) drug therapy
CPT/HCPCS: 88304; J2250; J2704; J3010

== ENCOUNTER → 2021-01-01 | Outpatient (CLI) | payer MEDICARE ==
[2021-01-02 14:34] LABS: Adenovirus F 40/41 Not Detected (NOT DETECT); Astrovirus Not Detected (NOT DETECT); Campylobacter Sp Not Detected (NOT DETECT); Cryptosporidium Not Detected (NOT DETECT); Cyclospora Cayetanensis Not Detected (NOT DETECT); E. Coli O157 Not Detected (NOT DETECT); Entamoeba Histolytica Not Detected (NOT DETECT); Enteroaggregative E. coli-EAEC Not Detected (NOT DETECT); Enteropathogenic E. coli-EPEC Not Detected (NOT DETECT); Enterotoxigenic E. coli-ETEC Not Detected (NOT DETECT); Giardia Lamblia Not Detected (NOT DETECT); Norovirus GI/GII Not Detected (NOT DETECT); Plesiomonas Shigelloides Not Detected (NOT DETECT); Rotavirus A Not Detected (NOT DETECT); Salmonella Sp Not Detected (NOT DETECT); Sapovirus Not Detected (NOT DETECT); Shiga Toxin-prod E. coli-STEC Not Detected (NOT DETECT); Shigella/Enteroin E. coli-EIEC Not Detected (NOT DETECT); Vibrio Cholerae Not Detected (NOT DETECT); Vibrio Sp Not Detected (NOT DETECT); Yersinia Enterocolitica Not Detected (NOT DETECT)
== END ==
LOC: LAB 10:45 → LAB SHORT 10:45
PROVIDERS: Nurse Practitioner Family
DX: R19.5 Other fecal abnormalities (principal); R19.7 Diarrhea, unspecified
CPT/HCPCS: 0097U

== ENCOUNTER → 2021-03-26 | Outpatient (CLI) | payer MEDICARE | LOC: LAB EV 14:38 | DX: R06.02 Shortness of breath (principal); I48.91 Unspecified atrial fibrillation; J98.11 Atelectasis ==

== ENCOUNTER 2021-03-27 11:25 | Inpatient (IN) | payer MEDICARE ==
[~2021-03-27] VITALS: Ht 165.1 cm; Wt 55.0 kg
[~2021-03-27 11:25] MED LIST changes: -ALBU2.5V5 INH; -AZIT500 PO; -IPRAT-ALBUT 0.5-3 ML INH; -TOPROL XL25 MG PO
--- NOTE | 2021-03-27 17:36 | NUR ---
SHIFT SUMMARY PT ARRIVED VIA DIRECT ADMIT FROM [facility]. PT IS ALERT AND ORIENTED, ABLE TO PROVIDE ACCURATE INFORMATION DURING ADMISSION QUESTIONS. PT IS A MODERATE ASSIST WITH WALKER TO BED, PT STATES FEELING WEAK. CARDIAC TELEMETRY APPLIED, SPECIAL COLLECTIONS LIBRARIAN REPORTED PT BEING IN SINUS TACH IN 140s-150s. PT APPEARS ASYMPTOMATIC. DR. MURPHY NOTIFIED, ORDERS FOR EKG GIVEN AND METOPROLOL AND CARDIZEM ADDED, GIVEN PER EMAR. EKG PLACED ON CHART. PT HEART RATE DECREASED TO 110S AFTER SEVERAL HOURS. PT IN SINUS RHYTHYM IN 70S BY END OF SHIFT. PT HAS COUGH, TOLERATING ROOM AIR WITH O2 SATS OF >90%. IV FLUIDS RUNNING PER EMAR.
--- NOTE | 2021-03-28 01:25 | NUR ---
0100: PHONE CALL TO DR. GUAN PHONE CALL TO DR. RICCI REQUESTING SOMETHING FOR DEEP, NON-PRODUCTIVE COUGH. WITH ORDERS FOR TESSALON PERRLES 200 MG TID PRN.
[2021-03-28 05:35] LABS: BASOPHILS ABSOLUTE AUTO 0.04 K/mm3 (0.00-0.23); BASOPHILS PERCENT AUTO 0 % (0-2); EOSINOPHILS ABSOLUTE AUTO 0.02 K/mm3 (0.00-0.68); EOSINOPHILS PERCENT AUTO 0 % (0-6); Hematocrit 41.5 % (33.0-51.0); Hemoglobin 12.7 g/dL (11.5-16.0); IMMATURE GRAN ABSOLUTE AUTO 0.07 K/mm3 (0.00-0.10); IMMATURE GRAN PERCENT AUTO 1 % (0-1); LYMPHOCYTES ABSOLUTE AUTO 1.87 K/mm3 (0.84-5.20); LYMPHOCYTES PERCENT AUTO 14 % (21-46); MONOCYTES ABSOLUTE AUTO 0.61 K/mm3 (0.16-1.47); MONOCYTES PERCENT AUTO 5 % (4-13); Mean Corpuscular HGB 25.8 pg (26.0-34.0); Mean Corpuscular HGB Conc 30.6 g/dL (31.5-36.5); Mean Corpuscular Volume 84 fL (80-100); Mean Platelet Volume 10.6 fL (9.1-12.4); NEUTROPHILS ABSOLUTE AUTO 10.65 K/mm3 (1.96-9.15); NEUTROPHILS PERCENT AUTO 80 % (41-73); Platelet Count 179 K/mm3 (150-400); RDW Coefficient Variation 17.3 % (11.7-14.2); RDW Standard Deviation 52.9 fL (35.1-46.3); Red Blood Cell Count 4.92 M/mm3 (3.80-5.20); White Blood Cell Count 13.26 K/mm3 (4.00-11.30)
[2021-03-28 05:54] LABS: Albumin, Blood 2.5 g/dL (3.4-5.0); Albumin/Globulin Ratio 0.7 (0.8-1.8); Bilirubin, Total 0.9 mg/dL (0.1-1.0); Bun/Creatinine Ratio 17.8 (12.0-20.0); Creatinine, Blood 0.95 mg/dL (0.40-1.00); Globulin, Blood 3.8 g/dL (2.2-4.0); Potassium, Blood 3.9 mmol/L (3.5-5.5); Total Protein, Blood 6.3 g/dL (6.4-8.2)
--- NOTE | 2021-03-28 07:53 | NUR ---
SHIFT SUMMARY PT MONITORED THROUGH THE NIGHT ON TELE NSR IN THE 70'S. PT HAD WHEEZES BILAT AND A BARKY, LARGELY UNPRODUCTIVE COUGH. ONLY SMALL AMOUNT OF THICK CLEAR SPUTUM NOTED X1. RECEIVED ORDER FOR RAY RUFFIN FROM SECURITIES UNDERWRITER PT HAS IV IN LEFT ARM. AT 0600 PT WAS ASSISTED BY STAFF TO USE THE BATHROOM, HER HR JUMPED TO SINUS TACH IN THE 140'S AND STAYED THERE FOR THE DURATION OF HER TIME OUT OF BED. PT WAS NOTED TO BE STRUGGLING TO HAVE A BM, PT STATED, "I'M PUSHING". RN ADVISED PT TO AVOID BEARING DOWN ON THE TOILET, ADVISED TO TAKE SOME DEEP BREATHS TO TRY TO RELAX TO HAVE A BM. [facility]
--- NOTE | 2021-03-28 17:43 | NUR ---
SHIFT SUMMARY PT HAD TACHYCARDIA THIS MORNING THAT WAS UNRESOLVED WITH REGULARLY SCHEDULED MEDS AND IV LOPRESSOR GIVEN. HEART RATE HAS BEEN IN THE 60'S AND NSR SINCE NOON TIME. IN TO VISIT PT THIS AFTERNOON. REPORTS COUGH IMPROVING BUT STILL SOUNDS HARSH AND DEEP. DENIES SOB OR RESP DISTRESS.
--- NOTE | 2021-03-29 04:44 | NUR ---
SHIFT SUMMARY NO ACUTE CHANGES NOTED THROUGH THE NIGHT. PT IS A&O X4, LUNG SOUNDS COURSE WITH BARKING COUGH, DB&C STRONGLY ENC, VSS, ST W PAC'S NOTED PER SUPERINTENDENT SANITATION, PT HAS DENIED CP/PRESSURE.TOLERATING PO INTAKE, URINE SAMOLE SENT TO LAB THIS AM. NS INFUSING @ 75 ML/HR PER ORDERS. CALL LIGHT IN REACH, WCGWEN & REPORT TO DAY RN
[2021-03-29 09:11] LABS: BASOPHILS ABSOLUTE AUTO 0.03 K/mm3 (0.00-0.23); BASOPHILS PERCENT AUTO 0 % (0-2); EOSINOPHILS ABSOLUTE AUTO 0.04 K/mm3 (0.00-0.68); EOSINOPHILS PERCENT AUTO 1 % (0-6); Hematocrit 41.6 % (33.0-51.0); Hemoglobin 12.3 g/dL (11.5-16.0); IMMATURE GRAN ABSOLUTE AUTO 0.06 K/mm3 (0.00-0.10); IMMATURE GRAN PERCENT AUTO 1 % (0-1); LYMPHOCYTES ABSOLUTE AUTO 1.73 K/mm3 (0.84-5.20); LYMPHOCYTES PERCENT AUTO 20 % (21-46); MONOCYTES ABSOLUTE AUTO 0.43 K/mm3 (0.16-1.47); MONOCYTES PERCENT AUTO 5 % (4-13); Mean Corpuscular HGB 25.6 pg (26.0-34.0); Mean Corpuscular HGB Conc 29.6 g/dL (31.5-36.5); Mean Corpuscular Volume 87 fL (80-100); Mean Platelet Volume 11.7 fL (9.1-12.4); NEUTROPHILS ABSOLUTE AUTO 6.55 K/mm3 (1.96-9.15); NEUTROPHILS PERCENT AUTO 74 % (41-73); Platelet Count 121 K/mm3 (150-400); RDW Coefficient Variation 17.2 % (11.7-14.2); RDW Standard Deviation 54.4 fL (35.1-46.3); White Blood Cell Count 8.84 K/mm3 (4.00-11.30)
[2021-03-29 09:33] LABS: Alanine Aminotransfer (ALT/SGP 17 U/L (12-78); Albumin, Blood 2.4 g/dL (3.4-5.0); Albumin/Globulin Ratio 0.6 (0.8-1.8); Alk Phos 72 U/L (50-136); Anion Gap 7 mmol/L (6-16); Aspartate Aminotrans (AST/SGOT 21 U/L (12-37); Bilirubin, Total 0.7 mg/dL (0.1-1.0); Blood Urea Nitrogen 18 mg/dL (8-24); Bun/Creatinine Ratio 20.7 (12.0-20.0); CO2, Blood 21 mmol/L (21-32); Calcium, Blood 8.2 mg/dL (8.5-10.1); Chloride, Blood 110 mmol/L (98-108); Creatinine, Blood 0.87 mg/dL (0.40-1.00); Globulin, Blood 3.8 g/dL (2.2-4.0); Glomerular Filtration Rate >60 (60-); Glucose, Blood 115 mg/dL (70-99); Potassium, Blood 4.5 mmol/L (3.5-5.5); Sodium, Blood 138 mmol/L (136-145); Total Protein, Blood 6.2 g/dL (6.4-8.2)
[2021-03-29] MEDS ORDERED: ALBU2.5V5 INH (13:21)
[2021-03-29] MEDS ORDERED: AZIT500 PO (13:22)
[2021-03-29] MEDS ORDERED: Tessalon200 MG PO (13:23)
[2021-03-29] MEDS ORDERED: GUAI600T33 PO (13:23)
[2021-03-29] MEDS ORDERED: IPRAT-ALBUT 0.5-3 ML INH (13:25)
[2021-03-29] MEDS ORDERED: TOPROL XL25 MG PO (13:25)
[2021-03-29] MEDS ORDERED: AMOCLA875 PO (13:32)
--- NOTE | 2021-03-29 13:57 | NUR ---
SUMMARY/DISCHARGE PT DISCHARGED TO HOME, PT VERBALIZED UNDERSTANDING OF DISCHARGE INSTRUCTIONS REGARDING MEDS AND FOLLOW UP, PT TAKEN OUT SAFELY VIA WHEELCHAIR
--- NOTE | 2021-03-29 17:52 | NUR ---
UPDATE 03/29/21: PER CHART REVIEW WITH DR. SMITH, PT. APPROPRIATE FOR DISCHARGE. DISCUSSED DISCHARGE PLANNING WITH PT. DENIED BARRIERS TO SAFETY OR MOBILITY WITHIN THE HOME. STRONG FAMILY SUPPORT. DENIED NEED FOR DME OR HH. DENIED NEED FOR CAREGIVER SUPPORT. WILL BE PICKING PT. UP AND TRANSPORTING HER TO PHARMACY IF NEEDED. PT. SCHEDULED FOR HOSPITAL F/U ON 04/02/21 WITH DAPHNE HOLLOWAY. DISCHARGE LETTER GIVEN TO PT. WITH TIME/DATE OF APPOINTMENT. PT DENIED ANY ADDITIONAL QUESTIONS OR CONCERNS.
== END 2021-03-29 13:44 | disposition home or self-care (01) | DRG 871 ==
LOC: MEDS 11:25 → ENPENDDIS 03-29 12:30 → MEDS 03-29 13:44
PROVIDERS: Family Medicine; ADMIT Family Medicine
DX: A41.9 Sepsis, unspecified organism (principal); J18.9 Pneumonia, unspecified organism; I13.0 Hypertensive heart and chronic kidney disease with heart failure and stage 1 through stage 4 chronic kidney disease, or unspecified chronic kidney disease; I50.32 Chronic diastolic (congestive) heart failure; N18.30 Chronic kidney disease, stage 3 unspecified; E11.22 Type 2 diabetes mellitus with diabetic chronic kidney disease; I48.0 Paroxysmal atrial fibrillation; M54.5 Low back pain; G89.4 Chronic pain syndrome; E78.5 Hyperlipidemia, unspecified; Z96.611 Presence of right artificial shoulder joint; I08.1 Rheumatic disorders of both mitral and tricuspid valves; I27.20 Pulmonary hypertension, unspecified; M19.031 Primary osteoarthritis, right wrist; E03.9 Hypothyroidism, unspecified; M35.3 Polymyalgia rheumatica; Z90.710 Acquired absence of both cervix and uterus; Z90.49 Acquired absence of other specified parts of digestive tract; Z98.890 Other specified postprocedural states; Z79.01 Long term (current) use of anticoagulants; Z90.89 Acquired absence of other organs; Z87.891 Personal history of nicotine dependence; Z79.52 Long term (current) use of systemic steroids; Z79.899 Other long term (current) drug therapy
CPT/HCPCS: 36415; 71046; 80053; 84145; 84443; 85025; 87040; 87077; 87086; 87186; 93005; 93010; 94640; 94668; 94760; A9270; J7030; J7512

== ENCOUNTER → 2021-03-27 | Outpatient (CLI) | payer MEDICARE ==
[~2021-03-27] MED LIST changes: +ALBU2.5V5 INH; +AZIT500 PO; +IPRAT-ALBUT 0.5-3 ML INH; +TOPROL XL25 MG PO
[2021-03-27 10:18] LABS: BASOPHILS ABSOLUTE AUTO 0.04 K/mm3 (0.00-0.23); BASOPHILS PERCENT AUTO 0 % (0-2); EOSINOPHILS ABSOLUTE AUTO 0.02 K/mm3 (0.00-0.68); EOSINOPHILS PERCENT AUTO 0 % (0-6); Hematocrit 44.9 % (33.0-51.0); IMMATURE GRAN ABSOLUTE AUTO 0.13 K/mm3 (0.00-0.10); IMMATURE GRAN PERCENT AUTO 1 % (0-1); LYMPHOCYTES ABSOLUTE AUTO 1.57 K/mm3 (0.84-5.20); LYMPHOCYTES PERCENT AUTO 9 % (21-46); MONOCYTES ABSOLUTE AUTO 0.68 K/mm3 (0.16-1.47); MONOCYTES PERCENT AUTO 4 % (4-13); Mean Corpuscular HGB 25.9 pg (26.0-34.0); Mean Corpuscular HGB Conc 31.2 g/dL (31.5-36.5); Mean Corpuscular Volume 83 fL (80-100); Mean Platelet Volume 10.4 fL (9.1-12.4); NEUTROPHILS ABSOLUTE AUTO 14.22 K/mm3 (1.96-9.15); NEUTROPHILS PERCENT AUTO 85 % (41-73); Platelet Count 180 K/mm3 (150-400); RDW Coefficient Variation 17.7 % (11.7-14.2); RDW Standard Deviation 51.8 fL (35.1-46.3); White Blood Cell Count 16.66 K/mm3 (4.00-11.30)
[2021-03-27 10:31] LABS: Alanine Aminotransfer (ALT/SGP 21 U/L (12-78); Albumin, Blood 3.3 g/dL (3.4-5.0); Albumin/Globulin Ratio 0.8 (0.8-1.8); Alk Phos 92 U/L (40-126); Anion Gap 7 mmol/L (6-16); Aspartate Aminotrans (AST/SGOT 11 U/L (12-37); Bilirubin, Total 0.8 mg/dL (0.1-1.0); Blood Urea Nitrogen 21 mg/dL (8-24); Bun/Creatinine Ratio 17.8 (12.0-20.0); CO2, Blood 32 mmol/L (21-32); Calcium, Blood 8.7 mg/dL (8.5-10.1); Chloride, Blood 101 mmol/L (98-108); Creatinine, Blood 1.18 mg/dL (0.40-1.00); Globulin, Blood 4.3 g/dL (2.2-4.0); Glomerular Filtration Rate 44 (60-); Glucose, Blood 156 mg/dL (70-99); Potassium, Blood 3.8 mmol/L (3.5-5.5); Sodium, Blood 140 mmol/L (136-145); Total Protein, Blood 7.6 g/dL (6.4-8.2)
[2021-03-27 10:38] LABS: Troponin I <0.017 ng/mL (0.000-0.040)
== END | disposition home or self-care (01) ==
LOC: LAB SHORT 10:11
PROVIDERS: Physician Assistant
DX: I48.91 Unspecified atrial fibrillation (principal); J18.1 Lobar pneumonia, unspecified organism
CPT/HCPCS: 80053; 84484; 85025

== ENCOUNTER 2021-04-10 09:45 | Emergency (ER) | payer MEDICARE ==
[~2021-04-10] VITALS: Ht 165.1 cm; Wt 59.0 kg
[~2021-04-10 09:45] MED LIST changes: -ARIMIDEX1 MG PO; +AZIT500 PO; -K-Dur20 MEQ PO; -LEVO-T88 MC1 PO
== END 2021-04-10 11:49 | disposition home or self-care (01) ==
LOC: ER 09:45
DX: S09.90XA Unspecified injury of head, initial encounter (principal); I48.20 Chronic atrial fibrillation, unspecified; I11.0 Hypertensive heart disease with heart failure; I50.9 Heart failure, unspecified; J44.9 Chronic obstructive pulmonary disease, unspecified; Z79.899 Other long term (current) drug therapy; W19.XXXA Unspecified fall, initial encounter; Y92.009 Unspecified place in unspecified non-institutional (private) residence as the place of occurrence of the external cause
CPT/HCPCS: 70450; 99284-25; A9270

== ENCOUNTER 2021-04-12 08:31 | Inpatient (IN) | payer MEDICARE ==
[~2021-04-12] VITALS: Ht 165.1 cm; Wt 57.0 kg
[2021-04-12 08:58] LABS: BASOPHILS ABSOLUTE AUTO 0.05 K/mm3 (0.00-0.23); BASOPHILS PERCENT AUTO 0 % (0-2); EOSINOPHILS ABSOLUTE AUTO 0.03 K/mm3 (0.00-0.68); EOSINOPHILS PERCENT AUTO 0 % (0-6); Hemoglobin 16.1 g/dL (11.5-16.0); IMMATURE GRAN ABSOLUTE AUTO 0.11 K/mm3 (0.00-0.10); IMMATURE GRAN PERCENT AUTO 1 % (0-1); LYMPHOCYTES ABSOLUTE AUTO 1.96 K/mm3 (0.84-5.20); LYMPHOCYTES PERCENT AUTO 13 % (21-46); MONOCYTES ABSOLUTE AUTO 0.85 K/mm3 (0.16-1.47); MONOCYTES PERCENT AUTO 6 % (4-13); Mean Corpuscular HGB 26.2 pg (26.0-34.0); Mean Corpuscular HGB Conc 32.9 g/dL (31.5-36.5); Mean Corpuscular Volume 80 fL (80-100); Mean Platelet Volume 11.6 fL (9.1-12.4); NEUTROPHILS ABSOLUTE AUTO 12.12 K/mm3 (1.96-9.15); NEUTROPHILS PERCENT AUTO 80 % (41-73); Platelet Count 290 K/mm3 (150-400); RDW Coefficient Variation 17.8 % (11.7-14.2); RDW Standard Deviation 47.6 fL (35.1-46.3); Red Blood Cell Count 6.14 M/mm3 (3.80-5.20); White Blood Cell Count 15.12 K/mm3 (4.00-11.30)
[2021-04-12 09:30] LABS: Albumin, Blood 3.3 g/dL (3.4-5.0); Albumin/Globulin Ratio 0.7 (0.8-1.8); Bilirubin, Total 1.3 mg/dL (0.1-1.0); Bun/Creatinine Ratio 34.5 (12.0-20.0); Calcium, Blood 10.1 mg/dL (8.5-10.1); Creatinine, Blood 1.65 mg/dL (0.40-1.00); Globulin, Blood 4.7 g/dL (2.2-4.0); Potassium, Blood 3.8 mmol/L (3.5-5.5)
[2021-04-12 10:33] LABS: Source, Urine Catheter
[2021-04-12 10:38] LABS: Appearance, Urine Clear (Clear); Bilirubin, Urine Neg (Neg); Blood, Urine 4+ (Neg); Color, Urine Yellow (P-Yellow); Glucose Qualitative, Urine Neg (Neg); Ketones, Urine Neg (Neg); Leukocyte Esterase, Urine 2+ (Neg); Nitrite, Urine Pos (Neg); Protein, Urine 1+ (Neg); Specific Gravity, Urine 1.015 (1.003-1.022); Urobilinogen, Urine NORM (Normal)
[2021-04-12 11:03] LABS: Red Blood Cells, Urine 0-2 /hpf (0-2); Squamous Epithelial Cells Few /hpf (Few); White Blood Cells, Urine 50-100 /hpf (0-5)
[2021-04-12 11:04] LABS: Bacteria Many /hpf
[2021-04-12] MEDS ORDERED: K-Dur20 MEQ PO (12:47)
[2021-04-12] MEDS ORDERED: SPIR25 PO (12:47)
[2021-04-12] MEDS ORDERED: GABA300 PO (12:47)
[2021-04-12] MEDS ORDERED: ARIMIDEX1 MG PO (12:47)
[2021-04-12] MEDS ORDERED: ALBU2.5V5 NEB (12:49)
[2021-04-12] MEDS ORDERED: OXYC5 PO (12:49)
[2021-04-12] MEDS ORDERED: IPRAT-ALBUT 0.5-3 ML NEB (12:50)
[2021-04-12] MEDS ORDERED: TOPROL XL25 MG PO (12:50)
[2021-04-12] MEDS ORDERED: Oxybutynin Chlo15 MG PO (12:52)
[2021-04-12] MEDS ORDERED: BUDESONIDE1 MG/2 M5 NEB (12:52)
[2021-04-12] MEDS ORDERED: LEVO-T88 MC1 PO (12:53)
[2021-04-12] MEDS ORDERED: DILTIAZEM 24HR120 M4 PO (12:53)
[2021-04-12] MEDS ORDERED: ATOR20 PO (12:54)
[2021-04-12] MEDS ORDERED: TORSE20 PO (12:54)
--- NOTE | 2021-04-12 17:14 | NUR ---
PATIENT IS ALERT AND ORIENTED. SHE IS [place]. SHE HAS BEEN SLEEPING IN BED SINCE SHE WAS ADMITTED THIS AFTERNOON. SCDS ARE IN PLACE. NS RUNNING AT 200/HR. NO C/O PAIN. WILL CONTINUE TO MONITOR
--- NOTE | 2021-04-13 04:58 | NUR ---
SHIFT SUMMARY NO ACUTE CHANGES THIS SHIFT, NO C/O ANY KIND, SLEPT T/O SHIFT WAKING EASILY FOR CARE THEN RETURNING TO SLEEP, CALL LIGHT IN REACH, WILL CONT TO MONITOR UNTIL REPORT GIVEN TO DAY RN.
[2021-04-13 05:34] LABS: BASOPHILS ABSOLUTE AUTO 0.04 K/mm3 (0.00-0.23); BASOPHILS PERCENT AUTO 0 % (0-2); EOSINOPHILS ABSOLUTE AUTO 0.02 K/mm3 (0.00-0.68); EOSINOPHILS PERCENT AUTO 0 % (0-6); Hematocrit 44.3 % (33.0-51.0); Hemoglobin 13.8 g/dL (11.5-16.0); IMMATURE GRAN ABSOLUTE AUTO 0.13 K/mm3 (0.00-0.10); IMMATURE GRAN PERCENT AUTO 1 % (0-1); LYMPHOCYTES ABSOLUTE AUTO 1.77 K/mm3 (0.84-5.20); LYMPHOCYTES PERCENT AUTO 16 % (21-46); MONOCYTES ABSOLUTE AUTO 0.72 K/mm3 (0.16-1.47); MONOCYTES PERCENT AUTO 7 % (4-13); Mean Corpuscular HGB 25.9 pg (26.0-34.0); Mean Corpuscular HGB Conc 31.2 g/dL (31.5-36.5); Mean Corpuscular Volume 83 fL (80-100); Mean Platelet Volume 11.2 fL (9.1-12.4); NEUTROPHILS ABSOLUTE AUTO 8.19 K/mm3 (1.96-9.15); NEUTROPHILS PERCENT AUTO 75 % (41-73); Platelet Count 207 K/mm3 (150-400); RDW Coefficient Variation 17.1 % (11.7-14.2); Red Blood Cell Count 5.32 M/mm3 (3.80-5.20); White Blood Cell Count 10.87 K/mm3 (4.00-11.30)
[2021-04-13 06:28] LABS: Bun/Creatinine Ratio 30.7 (12.0-20.0); Calcium, Blood 8.6 mg/dL (8.5-10.1); Creatinine, Blood 1.27 mg/dL (0.40-1.00); Potassium, Blood 2.4 mmol/L (3.5-5.5)
--- NOTE | 2021-04-13 08:05 | NUR ---
CALLED DR PERES REGARDING PATIENTS CRIDICALLY LOW POTASSIUM LEVEL AND ASKED IF HE WOULD LIKE PATIENT ON TELE. NEW ORDERS TO PLACE PATIENT ON TELE. DR PERES ALSO ORDERED 40meq PO KCL ON TOP OF ALREADY SCHEDULED 20meq PO KCL AND 40meq IV KCL AND A CARDIAC DIET. ORDERS PLACED PER .
[2021-04-13 10:25] LABS: Magnesium, Blood 2.2 mg/dL (1.6-2.4); Phosphorus, Blood 2.2 mg/dL (2.5-4.9)
--- NOTE | 2021-04-13 15:56 | NUR ---
PATIENT ALERT AND ORIENTED; ON BEDREST AT THIS TIME. INCONT OF B/B. REMAINS ON IV ABX WITHOUT S/SX ADVERSE REACTIONS NOTED OR REPORTED. PATIENT HAS RECIEVED QUITE A BIT OF REPLACEMENT POTASSIUM TODAY, BOTH PO AND IV, AND WILL HAVE A BLOOD DRAW IN A FEW HOURS FOR CURRENT LAB VALUES. NO APPETITE TODAY, ALTHOUGH SHE DID REQUEST A BREAKFAST TRAY THIS MORNING SHE DID NOT EAT. SHE HAS BEEN DRINKING PLENTY OF FLUIDS. VITALS HAVE BEEN STABLE. PATIENT IS COOPERATIVE WITH STAFF AND CALLS FOR STAFF ASSIST NEEDED. CALL LIGHT WITHIN REACH.
--- NOTE | 2021-04-13 19:05 | NUR ---
ASSUMED CARE RECEIVED REPORT FROM KIA RYAN. PT RESTING, IN NAD. NO ACUTE NEEDS ASSESSED AT THIS TIME. CALL LIGHT, POSSESSIONS IN REACH, BED IN LOW AND LOCKED POSITION WITH ALARMS ON.
[2021-04-13 21:05] LABS: Bun/Creatinine Ratio 28.7 (12.0-20.0); Calcium, Blood 8.1 mg/dL (8.5-10.1); Creatinine, Blood 1.22 mg/dL (0.40-1.00); Potassium, Blood 4.5 mmol/L (3.5-5.5)
--- NOTE | 2021-04-13 23:55 | NUR ---
SPOKE TO DR. DIAZ TO CLARIFY PT'S ORDER FOR LOVENOX. STATED TO GIVE AT THIS TIME. NO OTHER ORDERS RECEIVED. TM.
--- NOTE | 2021-04-14 06:00 | NUR ---
FIRE SUPERVISOR SUMMARY PT RESTING, IN NAD. NO ACUTE CHANGES TO REPORT OVERNIGHT, APPEARED TO SLEEP WELL T/O. VS REVIEWED, PT SLIGHTLY HYPOTENSIVE, OTHER VS WNL. DENIES PAIN OR DISCOMFORT. DENIES NEEDS AT THIS TIME. CALL LIGHT, POSSESSIONS IN REACH, BED IN LOW AND LOCKED POSITION WITH ALARMS ON. WILL CONTINUE TO PROVIDE CARE NEEDED UNTIL REPORT GIVEN TO ONCOMING RN.
[2021-04-14 08:41] LABS: BASOPHILS ABSOLUTE AUTO 0.07 K/mm3 (0.00-0.23); BASOPHILS PERCENT AUTO 1 % (0-2); EOSINOPHILS ABSOLUTE AUTO 0.11 K/mm3 (0.00-0.68); EOSINOPHILS PERCENT AUTO 1 % (0-6); Hematocrit 47.1 % (33.0-51.0); Hemoglobin 14.3 g/dL (11.5-16.0); IMMATURE GRAN ABSOLUTE AUTO 0.09 K/mm3 (0.00-0.10); IMMATURE GRAN PERCENT AUTO 1 % (0-1); LYMPHOCYTES ABSOLUTE AUTO 2.41 K/mm3 (0.84-5.20); LYMPHOCYTES PERCENT AUTO 29 % (21-46); MONOCYTES ABSOLUTE AUTO 0.59 K/mm3 (0.16-1.47); MONOCYTES PERCENT AUTO 7 % (4-13); Mean Corpuscular HGB 25.3 pg (26.0-34.0); Mean Corpuscular HGB Conc 30.4 g/dL (31.5-36.5); Mean Corpuscular Volume 83 fL (80-100); Mean Platelet Volume 10.9 fL (9.1-12.4); NEUTROPHILS ABSOLUTE AUTO 5.19 K/mm3 (1.96-9.15); NEUTROPHILS PERCENT AUTO 61 % (41-73); Platelet Count 193 K/mm3 (150-400); RDW Coefficient Variation 17.2 % (11.7-14.2); RDW Standard Deviation 51.7 fL (35.1-46.3); Red Blood Cell Count 5.65 M/mm3 (3.80-5.20); White Blood Cell Count 8.46 K/mm3 (4.00-11.30)
[2021-04-14 09:00] LABS: Bun/Creatinine Ratio 24.2 (12.0-20.0); Calcium, Blood 8.2 mg/dL (8.5-10.1); Creatinine, Blood 1.2 mg/dL (0.40-1.00); Potassium, Blood 3.6 mmol/L (3.5-5.5)
--- NOTE | 2021-04-14 15:37 | NUR ---
PATIENT APPEARS TO BE DOING BETTER TODAY COMPARED TO YESTERDAY. SHE HAS SLEPT TODAY, BUT NOT MUCH YESTERDAY. SHE HAS BEGUN TO NIBBLE AT HER MEAL TRAYS, ALTHOUGH NOT EATING A TON. IV WAS LOST LIGHT NIGHT, I TALKED TO DR PERES ABOUT THAT THIS MORNING AND HE SAID IT WAS FINE TO HAVE A NO IV ACCESS ORDER AND THAT HE WOULD REPLACE THE PATIENTS IV RECEPHIN WITH AN ORAL ABX. PATIENT HAS HAD NO S/SX OF ADVERSE REACTIONS FROM ABX AT THIS TIME. PT HAS BEEN ORDERED TO EVALUATE HER STRENGTH TO SUGGEST HOME OR PLACEMENT AND D/C ORDERS SHOULD SOON FOLLOW IN THE NEXT DAY OR TWO. THE PATIENTS VITALS HAVE BEEN STABLE. IS CURRENTLY VISITING AT BEDSIDE. CALL LIGHT WITHIN REACH.
--- NOTE | 2021-04-15 04:19 | NUR ---
SHIFT SUMMARY PATIENT HAD NO ACUTE CHANGES OBSERVED. AXOX 3 AND BEDREST. NO IV ACCESS. REPORTED HEAD/NECK PAIN AND OXYCODONE 5 MG GIVEN PER EMAR. PATIENT BACK TO SLEEP. PURE WICK PLACED ON DAY SHIFT WITH MINIMAL OUTPUT RESULTS. VSS/AFEBRILE. DENIES SOB AND N/V. CALL LIGHT IN REACH. BED IN LOWEST POSITION. WILL CONTINUE TO MONITOR UNTIL DAY SHIFT NURSE ASSUMES CARE.
--- NOTE | 2021-04-15 17:51 | NUR ---
SHIFT SUMMARY PATIENT ALERT AND ORIENTED THIS SHIFT. PATIENT IS PLEASANT AND COOPERATIVE WITH CARE. NO ACUTE CHANGES THIS SHIFT. PATIENT UP TO CHAIR FOR MEALS. PATIENT BACK TO BED THIS AFTERNOON FOR AFTERNOON NAP. PATIENT CURRENTLY SITTING UP IN CHAIR EATING DINNER.
[2021-04-16 05:14] LABS: BASOPHILS ABSOLUTE AUTO 0.04 K/mm3 (0.00-0.23); BASOPHILS PERCENT AUTO 1 % (0-2); EOSINOPHILS ABSOLUTE AUTO 0.11 K/mm3 (0.00-0.68); EOSINOPHILS PERCENT AUTO 2 % (0-6); Hematocrit 50.1 % (33.0-51.0); Hemoglobin 15.7 g/dL (11.5-16.0); IMMATURE GRAN ABSOLUTE AUTO 0.15 K/mm3 (0.00-0.10); IMMATURE GRAN PERCENT AUTO 2 % (0-1); LYMPHOCYTES ABSOLUTE AUTO 2.25 K/mm3 (0.84-5.20); LYMPHOCYTES PERCENT AUTO 30 % (21-46); MONOCYTES ABSOLUTE AUTO 0.52 K/mm3 (0.16-1.47); MONOCYTES PERCENT AUTO 7 % (4-13); Mean Corpuscular HGB 25.3 pg (26.0-34.0); Mean Corpuscular HGB Conc 31.3 g/dL (31.5-36.5); Mean Corpuscular Volume 81 fL (80-100); Mean Platelet Volume 10.8 fL (9.1-12.4); NEUTROPHILS ABSOLUTE AUTO 4.32 K/mm3 (1.96-9.15); NEUTROPHILS PERCENT AUTO 59 % (41-73); Platelet Count 193 K/mm3 (150-400); RDW Coefficient Variation 17.9 % (11.7-14.2); RDW Standard Deviation 47.9 fL (35.1-46.3); White Blood Cell Count 7.39 K/mm3 (4.00-11.30)
[2021-04-16 05:34] LABS: Bun/Creatinine Ratio 24.3 (12.0-20.0); Creatinine, Blood 1.48 mg/dL (0.40-1.00); Potassium, Blood 2.6 mmol/L (3.5-5.5)
--- NOTE | 2021-04-16 06:41 | NUR ---
SHIFT SUMMARY- PT. HAD NO ACUTE EVENTS OVERNIGHT. SLEPT T/O THE NIGHT, NO APPARENT DISTRESS NOTED. HAD NO COMPLAINTS OF PAIN OR DISCOMFORT DURING THE NIGHT. INCONT, ATTENDS IN PLACE. VSS. CALL LIGHT WITHIN REACH AND SIDE RAILS UPX2. WILL CONT TO MONITOR.
--- NOTE | 2021-04-16 09:32 | NUR ---
ADMIT: 04/12/21 DISCHARGE: DX: Sepsis CC: [email or web address] MARCE CALL: RESIDENCE: home with spouse CAREGIVER: Silvano Calle, Child, Ryan Retana, Spouse / Partner, DX: Afib, cardiomegaly, CKD-stage 3, COPD, CHF, see list DME: O2 and equipment, spirometer CCM: Referral- 2019 HOME HEALTH: [facility]- 2019 SUMMARY: Updated 04/16/21- pt states that she is weak and it's noted that she has trouble with transfers. She lives at home with her . Dr. Wilder discussed caregivers and assisted living with the pt yesterday but it's noted that they would not like to pursue this option at this time. Per Dr. Wilder's note from yesterday, plan is to potentially discharge pt home today with home health and social media developer. -[email or web address]
--- NOTE | 2021-04-16 17:59 | NUR ---
SHIFT SUMMARY PATIENT ALERT AND ORIENTED THIS SHIFT. PATIENT LYING IN BED MOST OF THIS SHIFT. PATIENT UP TO BATHROOM WITH 1 ASSIST WITH FWW 1X THIS AM. PATIENT WORKED WITH PT THIS AFTERNOON. PATIENT ON IV POTASSIUM THROUGHOUT THIS SHIFT, RAN SLOW BECAUSE OF LOW TOLERANCE. PATIENT'S SPOUSE IN THE ROOM THIS AFTERNOON. PATIENT CURRENTLY SITTING UP IN BED EATING DINNER.
[2021-04-16 20:26] LABS: Bun/Creatinine Ratio 26.4 (12.0-20.0); Calcium, Blood 8.5 mg/dL (8.5-10.1); Creatinine, Blood 1.44 mg/dL (0.40-1.00); Potassium, Blood 3.7 mmol/L (3.5-5.5)
--- NOTE | 2021-04-17 04:09 | NUR ---
SHIFT SUMMARY: PT IS ALERT AND ORIENTED. PT IS CALM AND COOPERATIVE WITH CARE. PT CALLS APPROPRIATELY. PT IS A ONE PERSON ASSIST FOR TRANSFERS. PT INCONTINENT OVERNIGHT, CHANGED AND CLEANED NEEDED. PT DENIES PAIN, NAUSEA, VOMITING, AND SOB. NO ACUTE CHANGES OR COMPLICATIONS THIS SHIFT. BED IN LOW POSITION, CALL LIGHT WITHIN REACH. WILL CONTINUE TO MONITOR.
--- NOTE | 2021-04-17 10:16 | NUR ---
KANE HELD WITH AWARE OF TRENDING BLD PRESSURES.
[2021-04-17] MEDS ORDERED: LEVO750 PO (13:35)
[2021-04-17] MEDS ORDERED: MICONAZOLE NIT130 GM TOP (13:38)
[2021-04-17] MEDS ORDERED: Hair, Skin & N1 EACH PO (13:38)
--- NOTE | 2021-04-17 14:37 | NUR ---
REVIEW D'C WITH PATIENT. PHARMACIST REVIEWED NEW MEDS. AWARE MEDS AT [facility] ANSWER ALL QUESTIONS. PATIENT VERBALIZES UNDERSTANDING. CALLS FOR RIDE. BACTERIOLOGY PROFESSOR TO ASSIST WITH CLOTHES.
== END 2021-04-17 15:11 | disposition home health service (06) | DRG 689 ==
LOC: ER 08:31 → ERHOLD 12:43 → MEDS 14:46
PROVIDERS: Family Medicine; Physician Assistant; ADMIT Internal Medicine
DX: N39.0 Urinary tract infection, site not specified (principal); I50.33 Acute on chronic diastolic (congestive) heart failure; G92 Toxic encephalopathy; I13.0 Hypertensive heart and chronic kidney disease with heart failure and stage 1 through stage 4 chronic kidney disease, or unspecified chronic kidney disease; N17.9 Acute kidney failure, unspecified; E87.2 Acidosis; E87.6 Hypokalemia; G31.84 Mild cognitive impairment of uncertain or unknown etiology; R77.8 Other specified abnormalities of plasma proteins; R62.7 Adult failure to thrive; E83.39 Other disorders of phosphorus metabolism; J44.9 Chronic obstructive pulmonary disease, unspecified; N18.30 Chronic kidney disease, stage 3 unspecified; I48.91 Unspecified atrial fibrillation; M19.90 Unspecified osteoarthritis, unspecified site; E11.22 Type 2 diabetes mellitus with diabetic chronic kidney disease; E11.42 Type 2 diabetes mellitus with diabetic polyneuropathy; M35.3 Polymyalgia rheumatica; E03.9 Hypothyroidism, unspecified; K59.09 Other constipation; Z68.21 Body mass index [BMI] 21.0-21.9, adult; E78.5 Hyperlipidemia, unspecified; I70.0 Atherosclerosis of aorta; R32 Unspecified urinary incontinence; G89.4 Chronic pain syndrome; M54.5 Low back pain; M79.7 Fibromyalgia; Z98.890 Other specified postprocedural states; Z90.49 Acquired absence of other specified parts of digestive tract; Z90.89 Acquired absence of other organs; Z90.710 Acquired absence of both cervix and uterus; Z87.891 Personal history of nicotine dependence; Z79.52 Long term (current) use of systemic steroids; Z79.899 Other long term (current) drug therapy
CPT/HCPCS: 36415; 51701; 74177; 80048; 80053; 81001; 83036; 83605; 83690; 83735; 83880; 84100; 84484; 85025; 87040; 87077; 87086; 87186; 93005; 93010; 96361; 96365; 96375; 97110; 97116; 97162; 99285-25; A9270; J0696; J1650; J2550; J3480; J7030; J7050; J7060; Q9967

== ENCOUNTER 2021-04-20 19:29 | Emergency (ER) | payer MEDICARE ==
[~2021-04-20] VITALS: Ht 165.1 cm; Wt 59.0 kg
[~2021-04-20 19:29] MED LIST changes: +ALBU2.5V5 NEB; +ARIMIDEX1 MG PO; +BUDESONIDE1 MG/2 M5 NEB; +DILTIAZEM 24HR120 M4 PO; +Hair, Skin & N1 EACH PO; +K-Dur20 MEQ PO; +LEVO-T88 MC1 PO; +LEVO750 PO; +MICONAZOLE NIT130 GM TOP; +TOPROL XL25 MG PO
[2021-04-20 19:53] LABS: Source, Urine Catheter
[2021-04-20 19:56] LABS: BASOPHILS ABSOLUTE AUTO 0.05 K/mm3 (0.00-0.23); BASOPHILS PERCENT AUTO 1 % (0-2); EOSINOPHILS ABSOLUTE AUTO 0.03 K/mm3 (0.00-0.68); EOSINOPHILS PERCENT AUTO 0 % (0-6); Hematocrit 46.3 % (33.0-51.0); Hemoglobin 14.7 g/dL (11.5-16.0); IMMATURE GRAN ABSOLUTE AUTO 0.08 K/mm3 (0.00-0.10); IMMATURE GRAN PERCENT AUTO 1 % (0-1); LYMPHOCYTES PERCENT AUTO 17 % (21-46); MONOCYTES ABSOLUTE AUTO 0.79 K/mm3 (0.16-1.47); MONOCYTES PERCENT AUTO 9 % (4-13); Mean Corpuscular HGB Conc 31.7 g/dL (31.5-36.5); Mean Corpuscular Volume 82 fL (80-100); Mean Platelet Volume 11.6 fL (9.1-12.4); NEUTROPHILS ABSOLUTE AUTO 6.31 K/mm3 (1.96-9.15); NEUTROPHILS PERCENT AUTO 72 % (41-73); Platelet Count 161 K/mm3 (150-400); RDW Coefficient Variation 18.4 % (11.7-14.2); RDW Standard Deviation 51.8 fL (35.1-46.3); Red Blood Cell Count 5.66 M/mm3 (3.80-5.20); White Blood Cell Count 8.76 K/mm3 (4.00-11.30)
[2021-04-20 20:00] LABS: Bilirubin, Urine Neg (Neg); Blood, Urine 1+ (Neg); Glucose Qualitative, Urine Neg (Neg); Ketones, Urine Neg (Neg); Leukocyte Esterase, Urine Neg (Neg); Nitrite, Urine Neg (Neg); Protein, Urine Neg (Neg); Urobilinogen, Urine NORM (Normal)
[2021-04-20 20:06] LABS: Appearance, Urine Clear (Clear); Color, Urine Pale Yellow (P-Yellow)
[2021-04-20 20:07] LABS: Bacteria Not Seen /hpf; Red Blood Cells, Urine 0-2 /hpf (0-2); Squamous Epithelial Cells Not Seen /hpf (Few); White Blood Cells, Urine Not Seen /hpf (0-5)
[2021-04-20 20:11] LABS: Albumin, Blood 2.7 g/dL (3.4-5.0); Albumin/Globulin Ratio 0.8 (0.8-1.8); Bilirubin, Total 0.7 mg/dL (0.1-1.0); Bun/Creatinine Ratio 21.7 (12.0-20.0); Calcium, Blood 7.9 mg/dL (8.5-10.1); Creatinine, Blood 1.29 mg/dL (0.40-1.00); Globulin, Blood 3.6 g/dL (2.2-4.0); Potassium, Blood 3.3 mmol/L (3.5-5.5); Total Protein, Blood 6.3 g/dL (6.4-8.2); Troponin I 0.031 ng/mL (0.000-0.040)
== END 2021-04-21 00:40 | disposition home or self-care (01) ==
LOC: ER 19:29
PROVIDERS: Emergency Medicine
DX: R55 Syncope and collapse (principal); I13.0 Hypertensive heart and chronic kidney disease with heart failure and stage 1 through stage 4 chronic kidney disease, or unspecified chronic kidney disease; E11.22 Type 2 diabetes mellitus with diabetic chronic kidney disease; N18.30 Chronic kidney disease, stage 3 unspecified; I50.32 Chronic diastolic (congestive) heart failure; J45.909 Unspecified asthma, uncomplicated
CPT/HCPCS: 71045; 80053; 81001; 84484; 85025; 93005; 93010; 96360; 99285-25; J7030; P9612

== ENCOUNTER 2021-04-23 14:12 | Emergency (ER) | payer MEDICARE ==
[~2021-04-23] VITALS: Ht 167.6 cm; Wt 61.2 kg
[2021-04-23 14:41] LABS: BASOPHILS ABSOLUTE AUTO 0.04 K/mm3 (0.00-0.23); BASOPHILS PERCENT AUTO 1 % (0-2); EOSINOPHILS ABSOLUTE AUTO 0.02 K/mm3 (0.00-0.68); EOSINOPHILS PERCENT AUTO 0 % (0-6); Hemoglobin 14.3 g/dL (11.5-16.0); IMMATURE GRAN ABSOLUTE AUTO 0.03 K/mm3 (0.00-0.10); IMMATURE GRAN PERCENT AUTO 0 % (0-1); LYMPHOCYTES PERCENT AUTO 17 % (21-46); MONOCYTES ABSOLUTE AUTO 0.68 K/mm3 (0.16-1.47); MONOCYTES PERCENT AUTO 8 % (4-13); Mean Corpuscular HGB Conc 31.8 g/dL (31.5-36.5); Mean Corpuscular Volume 82 fL (80-100); Mean Platelet Volume 10.4 fL (9.1-12.4); NEUTROPHILS ABSOLUTE AUTO 6.02 K/mm3 (1.96-9.15); NEUTROPHILS PERCENT AUTO 74 % (41-73); Platelet Count 149 K/mm3 (150-400); RDW Coefficient Variation 18.6 % (11.7-14.2); RDW Standard Deviation 53.5 fL (35.1-46.3); Red Blood Cell Count 5.51 M/mm3 (3.80-5.20); White Blood Cell Count 8.19 K/mm3 (4.00-11.30)
[2021-04-23 14:57] LABS: Alanine Aminotransfer (ALT/SGP 28 U/L (12-78); Albumin, Blood 2.5 g/dL (3.4-5.0); Albumin/Globulin Ratio 0.7 (0.8-1.8); Alk Phos 82 U/L (50-136); Anion Gap 7 mmol/L (6-16); Aspartate Aminotrans (AST/SGOT 37 U/L (12-37); Blood Urea Nitrogen 16 mg/dL (8-24); CO2, Blood 27 mmol/L (21-32); Chloride, Blood 100 mmol/L (98-108); Creatinine, Blood 0.89 mg/dL (0.40-1.00); Globulin, Blood 3.7 g/dL (2.2-4.0); Glomerular Filtration Rate >60 (60-); Glucose, Blood 83 mg/dL (70-99); Potassium, Blood 4.1 mmol/L (3.5-5.5); Sodium, Blood 134 mmol/L (136-145); Total Protein, Blood 6.2 g/dL (6.4-8.2)
[2021-04-23 14:59] LABS: Source, Urine Catheter
[2021-04-23 15:02] LABS: Appearance, Urine Clear (Clear); Bilirubin, Urine Neg (Neg); Blood, Urine 2+ (Neg); Color, Urine Yellow (P-Yellow); Glucose Qualitative, Urine Neg (Neg); Ketones, Urine 2+ (Neg); Leukocyte Esterase, Urine Neg (Neg); Nitrite, Urine Neg (Neg); Protein, Urine 2+ (Neg); Urobilinogen, Urine NORM (Normal)
[2021-04-23 15:28] LABS: Bacteria Mod /hpf; Squamous Epithelial Cells Few /hpf (Few)
[2021-04-23] MEDS ORDERED: LEVFLO500 PO (16:00)
== END 2021-04-23 17:19 | disposition home or self-care (01) ==
LOC: ER 14:12
PROVIDERS: Emergency Medicine
DX: N39.0 Urinary tract infection, site not specified (principal); R53.1 Weakness; R05 Cough; I13.0 Hypertensive heart and chronic kidney disease with heart failure and stage 1 through stage 4 chronic kidney disease, or unspecified chronic kidney disease; N18.30 Chronic kidney disease, stage 3 unspecified; I50.32 Chronic diastolic (congestive) heart failure; E11.22 Type 2 diabetes mellitus with diabetic chronic kidney disease; Z85.3 Personal history of malignant neoplasm of breast; G89.4 Chronic pain syndrome; Z79.899 Other long term (current) drug therapy
CPT/HCPCS: 51701; 80053; 81001; 83735; 85025; 87086; 93005; 93010; 96360; 99285-25; A9270; J7030